=== PATIENT | female | born 1935 | race Caucasian/White ===

== ENCOUNTER 2017-12-31 13:25 | Inpatient (IN) | payer MEDICARE ==
[~2017-12-31] VITALS: Ht 165.1 cm; Wt 77.1 kg
[2017-12-31 13:35] VITALS: BP 120/57
[2017-12-31] MEDS ORDERED: Sodium Chloride 500ML 500 ML IV ONE (14:00)
[2017-12-31] MEDS ORDERED: Acetaminophen 500mg (ES) tab ORAL ONE (14:00)
[2017-12-31 14:49] LABS: BASOPHILS % (AUTO) 1.4 % (0.0-2.0); EOSINOPHILS % (AUTO) 3.4 % (0.0-3.0); HEMATOCRIT 35.9 % (37.0-47.0); HEMOGLOBIN 11.7 G/DL (12.0-16.0); LYMPHOCYTES % (AUTO) 26.2 % (20.0-45.0); MEAN CORPUSCULAR VOLUME 93 FL (80-99); MONOCYTES % (AUTO) 13.1 % (1.0-10.0); NEUTROPHILS % (AUTO) 55.9 % (45.0-75.0); PLATELET COUNT 252 K/UL (150-450); RED BLOOD COUNT 3.84 M/UL (4.20-5.40); RED CELL DISTRIBUTION WIDTH 11.4 % (11.6-14.8); WHITE BLOOD COUNT 6.1 K/UL (4.8-10.8)
--- NOTE | 2017-12-31 14:51 | Diagnostic Imaging Report ---
Indication: Chest pain Comparison: None A single view chest radiograph was obtained. Findings: No definite infiltrate or pulmonary vascular congestion identified. The heart is enlarged. The aorta is mildly enlarged consistent with atherosclerotic vascular disease. The bones are osteopenic. Impression: No acute disease
[2017-12-31] MEDS ORDERED: SINEMET 25-1001 EAC1 ORAL ×3 (14:58→20:05)
[2017-12-31] MEDS ORDERED: ACETAMINOPHEN325 M1 ORAL (14:58)
[2017-12-31] MEDS ORDERED: OMEPRAZOLE40 M1 ORAL (15:00)
[2017-12-31] MEDS ORDERED: CALCIUM CARBON500 M1 PO (15:00)
[2017-12-31] MEDS ORDERED: THERA-M1 EACH PO (15:00)
[2017-12-31] MEDS ORDERED: BENADRYL25 MG ORAL (15:00)
[2017-12-31 15:02] LABS: ANION GAP 5 mmol/L (5-15); BLOOD UREA NITROGEN 22 mg/dL (7-18); CARBON DIOXIDE 30 MMOL/L (21-32); CHLORIDE 106 MMOL/L (98-107); CREATININE 1.2 MG/DL (0.55-1.30); POTASSIUM 3.9 MMOL/L (3.5-5.1); SODIUM 141 MMOL/L (136-145)
--- NOTE | 2017-12-31 15:08 | Diagnostic Imaging Report ---
Indication: Headache Technique: Contiguous 5 mm thick transaxial imaging of the head obtained in a Siemens Sensation [address] scanner. Soft tissue and bone windows generated. Automatic Exposure Control was utilized. Total Dose length Product (DLP): 1679.[address] Dose Index Volume (CTDIvol): 70.38,12.12 mGy Comparison: none Findings: There is moderate prominence of the ventricles, basal cisterns, and cerebral sulci consistent with atrophy. Moderate, nonspecific, white matter hypoattenuation is noted throughout the brain consistent with chronic small vessel disease. There is no midline shift, edema, acute hemorrhage, mass effect, or abnormal extra-axial fluid collections. Bones and extra osseous soft tissues are unremarkable. Impression: No acute intracranial bleed, mass effect or edema. Moderate atrophy of the brain. Evidence of chronic small vessel disease involving white matter tracts. The CT scanner at [facility] is accredited by the [employer] and the scans are performed using dose optimization techniques as appropriate to a performed exam including Automatic Exposure control.
--- NOTE | 2017-12-31 15:13 | Diagnostic Imaging Report ---
Indication: Neck pain. Technique: Continuous helical imaging of the cervical spine was obtained transaxially from the skull base to the upper thoracic spine. 2-D coronal and sagittal reformatted images were obtained. Automatic Exposure Control was utilized. Total Dose length Product (DLP): 1679.[address] Dose Index Volume (CTDIvol): 70.38,12.12 mGy Comparison: None Findings: No acute fracture is identified. There is a moderate degenerative disease characterized by narrowing of intervertebral discs, extensive osteophyte formation and uncovertebral spur formation at multiple levels. There is a reversal of cervical lordosis with a kyphotic appearing cervical spine. Multilevel anterolistheses also present for example at C3-4 and C4-5. For further evaluation of the spondylosis recommend MRI. The bones are osteopenic. 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 No definite evidence of acute injury The CT scanner at [facility] is accredited by the [employer] and the scans are performed using dose optimization techniques as appropriate to a performed exam including Automatic Exposure control.
[2017-12-31 15:23] LABS: ALANINE AMINOTRANSFERASE 11 U/L (12-78); ALBUMIN 3.4 G/DL (3.4-5.0); ALBUMIN/GLOBULIN RATIO 0.9 (1.0-2.7); ALKALINE PHOSPHATASE 85 U/L (46-116); ASPARTATE AMINO TRANSFERASE 8 U/L (15-37); BILIRUBIN,TOTAL 0.7 MG/DL (0.2-1.0); CKMB 1.8 NG/ML (0.0-3.6); CREATINE KINASE 135 U/L (26-308)
--- NOTE | 2017-12-31 16:14 | Emergency Room Report ---
History of Present Illness General Chief Complaint: Multiple Trauma/Fall Source: Patient, Medical Record, EMS Present Illness HPI 82-year-old female presents ED for evaluation. Patient complaining of head pain and neck pain status post fall 2 days ago at assisted. States it was a mechanical fall. Denies LOC. Complaining of pain to the back of her head and neck. Pain is throbbing, 5 out of 10, nonradiating. Denies chest pain or shortness of breath. Denies nausea or vomiting. Denies any blurry vision. Patient states that she has been falling a lot recently. No other aggravating or relieving factors. Denies any other associated symptoms Allergies: Coded Allergies: AMOXICILLIN (Verified Allergy, Unknown, 12/31/17) Patient History Past Medical History: none Past Surgical History: none Pertinent Family History: none Social History: Denies: smoking, alcohol use, drug use Now: No Immunizations: UTD Reviewed Nursing Documentation: PMH: Agreed; PSxH: Agreed Nursing Documentation-PMH Past Medical History: No History, Except For Review of Systems All Other Systems: negative except mentioned in HPI Physical Exam Vital Signs Date Time Temp Pulse Resp B/P (MAP) Pulse Ox O2 Delivery O2 Flow Rate FiO2 12/31/17 13:25 97.8 71 18 122/71 95 Room Air 97.9 Sp02 EP Interpretation: reviewed, normal General Appearance: no apparent distress, alert, GCS 15, non-toxic Head: normocephalic, other - TTP to posterior scalp Eyes: bilateral eye normal inspection, bilateral eye PERRL ENT: hearing grossly normal, normal pharynx, no angioedema, normal voice Neck: full range of motion, supple/symm/no masses, tender lateral, tender midline Respiratory: chest non-tender, lungs clear, normal breath sounds, speaking full sentences Cardiovascular #1: regular rate, rhythm, no edema Cardiovascular #2: 2+ carotid (R), 2+ carotid (L), 2+ radial (R), 2+ radial (L) , 2+ dorsalis pedis (R), 2+ dorsalis pedis (L) Gastrointestinal: normal bowel sounds, non tender, soft, non-distended, no guarding, no rebound Rectal: deferred Genitourinary: normal inspection, no CVA tenderness Musculoskeletal: back normal, gait/station normal, normal range of motion, non- tender Neurologic: alert, oriented x3, responsive, motor strength/tone normal, sensory intact, speech normal Psychiatric: judgement/insight normal, memory normal, mood/affect normal, no suicidal/homicidal ideation Reflexes: 3+ bicep (R), 3+ bicep (L), 3+ tricep (R), 3+ tricep (L), 3+ knee (R) , 3+ knee (L) Skin: normal color, no rash, warm/dry, well hydrated Lymphatic: no adenopathy Medical Decision Making Diagnostic Impression: Primary Impression: Head injury Qualified Codes: S09.90XA - Unspecified injury of head, initial encounter Additional Impression: Frequent falls ER Course Hospital Course 82-year-old female presents ED status post fall with head and neck pain Differential diagnoses include: AL/unstable angina, arrythmia, dehydration, CVA/ TIA Clinical course Patient placed on stretcher. 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 After initial history and physical I ordered labs, EKG, chest x-ray, IVFs, CT Brain, CT Cspine labs reviewed- no leukocytosis, hemoglobin/hematocrit ok, electrolytes okay, troponins negative EKG- NSR, no acute ischemic changes interpreted by me Chest x-ray- no acute process CT brain-unremarkable, atrophy, chronic disease CT Cspine - moderate DJD Because of history of frequent falls there is concern of safety for the patient. Believe patient should be admitted for further evaluation Case discussed with Dr. Ocasio and he agreed to accept the patient to his service for further care and support I. I feel this is a highly complex case requiring extensive working including EKG/Rhythm strip, Xray/CT/US, Blood/urine lab work, repeat exams while in ED, and administration of strong opiates/narcotics for pain control, admission to hospital or close patient follow up. Diagnosis - head injury, frequent falls admitted to floor in serious condition Labs Test 12/31/17 14:15 White Blood Count 6.1 K/UL (4.8-10.8) Red Blood Count 3.84 M/UL (4.20-5.40) Hemoglobin 11.7 G/DL (12.0-16.0) Hematocrit 35.9 % (37.0-47.0) Mean Corpuscular Volume 93 FL (80-99) Mean Corpuscular Hemoglobin 30.4 PG (27.0-31.0) Mean Corpuscular Hemoglobin Concent 32.6 G/DL (32.0-36.0) Red Cell Distribution Width 11.4 % (11.6-14.8) Platelet Count 252 K/UL (150-450) Mean Platelet Volume 6.0 FL (6.5-10.1) Neutrophils (%) (Auto) 55.9 % (45.0-75.0) Lymphocytes (%) (Auto) 26.2 % (20.0-45.0) Monocytes (%) (Auto) 13.1 % (1.0-10.0) Eosinophils (%) (Auto) 3.4 % (0.0-3.0) Basophils (%) (Auto) 1.4 % (0.0-2.0) Sodium Level 141 MMOL/L (136-145) Potassium Level 3.9 MMOL/L (3.5-5.1) Chloride Level 106 MMOL/L (98-107) Carbon Dioxide Level 30 MMOL/L (21-32) Anion Gap 5 mmol/L (5-15) Blood Urea Nitrogen 22 mg/dL (7-18) Creatinine 1.2 MG/DL (0.55-1.30) Estimat Glomerular Filtration Rate mL/min (>60) Glucose Level 96 MG/DL (74-106) Calcium Level 9.0 MG/DL (8.5-10.1) Total Bilirubin 0.7 MG/DL (0.2-1.0) Aspartate Amino Transf (AST/SGOT) 8 U/L (15-37) Alanine Aminotransferase (ALT/SGPT) 11 U/L (12-78) Alkaline Phosphatase 85 U/L (46-116) Total Creatine Kinase 135 U/L (26-308) Creatine Kinase MB 1.8 NG/ML (0.0-3.6) Creatine Kinase MB Relative Index 1.3 Troponin I 0.000 ng/mL (0.000-0.056) Pro-B-Type Natriuretic Peptide 128 pg/mL (0-125) Total Protein 7.1 G/DL (6.4-8.2) Albumin 3.4 G/DL (3.4-5.0) Globulin 3.7 g/dL Albumin/Globulin Ratio 0.9 (1.0-2.7) EKG Diagnostic Results Rate: normal Rhythm: NSR ST Segments: no acute changes ASA given to the pt in ED: No Rhythm Strip Diag. Results EP Interpretation: yes Rhythm: NSR, no PVC's, no ectopy Chest X-Ray Diagnostic Results Chest X-Ray Diagnostic Results : Chest X-Ray Ordered: Yes # of Views/Limited/Complete: 1 View Indication: Other - dizziness EP Interpretation: Yes Interpretation: no consolidation, no effusion, no pneumothorax, no acute cardiopulmonary disease Impression: No acute disease CT/MRI/US Diagnostic Results CT/MRI/US Diagnostic Results #1: Imaging Test Ordered: CT Head Impression no acute process. atrophy. chronic small vessel disease CT/MRI/US Diagnostic Results #2: Imaging Test Ordered: CT C spine Impression degenerative disease of cspine. no acute injury Last Vital Signs Date Time Temp Pulse Resp B/P (MAP) Pulse Ox O2 Delivery O2 Flow Rate FiO2 12/31/17 14:22 97.5 12/31/17 13:35 73 17 120/57 99 Room Air Status: improved Disposition: ADMITTED INPATIENT Condition: Serious Referrals: Regino Marion MD (PCP) Caio Clark MD December 31, 2017 16:14
[2017-12-31 16:19] VITALS: BP 154/73
[2017-12-31 20:00] VITALS: BP 139/74
[2017-12-31] MEDS ORDERED: ATIVAN0.5 MG ORAL (20:05)
[2017-12-31] MEDS ORDERED: COLACE100 MG ORAL (20:05)
[2017-12-31] MEDS ORDERED: SINEMET CR 50-1 EACH ORAL (20:05)
[2017-12-31] MEDS ORDERED: PROBIOTIC1 EAC5 PO (20:05)
[2017-12-31] MEDS ORDERED: BISACODYL5 MG ORAL (20:05)
[2017-12-31] MEDS ORDERED: AMANTADINE100 M2 ORAL (20:05)
[2017-12-31] MEDS ORDERED: QUETIAPINE FUM100 MG ORAL (20:05)
[2017-12-31] MEDS ORDERED: DULCOLAX5 MG PO (20:05)
[2017-12-31] MEDS ORDERED: VITAMIN C500 M1 ORAL (20:05)
[2017-12-31] MEDS ORDERED: Bisacodyl EC 5mg tab ORAL PRN (20:30)
[2017-12-31] MEDS ORDERED: HYDROcodone/Acetamin 10/325 tab ORAL PRN (20:30)
[2017-12-31] MEDS ORDERED: Docusate 100mg cap ORAL PRN (20:30)
[2017-12-31] MEDS ORDERED: Levodopa/Carbidopa 25/100 tab ORAL SCH (21:00)
[2017-12-31] MEDS: Heparin 5000 units/ml inj SUBQ SCH (21:39)
[2018-01-01] VITALS: BP 103/49
[2018-01-01 01:01] LABS: APPEARANCE,URINE CLOUDY; BILIRUBIN, URINE NEGATIVE (NEGATIVE); COLOR,URINE PALE YELLOW; GLUCOSE, URINE (UA) NEGATIVE (NEGATIVE); KETONES,URINE 1+ (NEGATIVE); LEUKOCYTE ESTERASE ,URINE 3+ (NEGATIVE); NITRITE,URINE NEGATIVE (NEGATIVE); PH,URINE 5 (4.5-8.0); PROTEIN,URINE 1+ (NEGATIVE); UROBILINOGEN,URINE 4 MG/DL (0.0-1.0)
[2018-01-01] MEDS: Levodopa/Carbidopa 25/100 tab ORAL SCH ×5 (04:03→18:01)
[2018-01-01 08:00] VITALS: BP 144/80
[2018-01-01] MEDS: Amantadine 100mg cap ORAL SCH (08:59)
[2018-01-01] MEDS: Ascorbic Acid 500mg tab ORAL SCH (08:59)
[2018-01-01] MEDS: Multivitamin w/Minerals tab ORAL SCH (08:59)
[2018-01-01] MEDS: Lactobacillus-GG tablet ORAL SCH (08:59)
[2018-01-01] MEDS ORDERED: Levodopa/Carbidopa CR 50/200 tab ORAL SCH (09:00)
[2018-01-01 09:01] LABS: BASOPHILS % (AUTO) 1.4 % (0.0-2.0); HEMATOCRIT 35.4 % (37.0-47.0); HEMOGLOBIN 11.5 G/DL (12.0-16.0); LYMPHOCYTES % (AUTO) 27.8 % (20.0-45.0); MEAN CORPUSCULAR VOLUME 93 FL (80-99); MONOCYTES % (AUTO) 12.8 % (1.0-10.0); NEUTROPHILS % (AUTO) 51.9 % (45.0-75.0); PLATELET COUNT 260 K/UL (150-450); RED BLOOD COUNT 3.81 M/UL (4.20-5.40); RED CELL DISTRIBUTION WIDTH 11.2 % (11.6-14.8)
[2018-01-01] MEDS: Heparin 5000 units/ml inj SUBQ SCH ×2 (09:01→21:15)
[2018-01-01 09:32] LABS: ALANINE AMINOTRANSFERASE 8 U/L (12-78); ALBUMIN/GLOBULIN RATIO 0.9 (1.0-2.7); ALKALINE PHOSPHATASE 76 U/L (46-116); ANION GAP 6 mmol/L (5-15); ASPARTATE AMINO TRANSFERASE 11 U/L (15-37); BILIRUBIN,TOTAL 0.9 MG/DL (0.2-1.0); BLOOD UREA NITROGEN 16 mg/dL (7-18); CALCIUM 8.7 MG/DL (8.5-10.1); CARBON DIOXIDE 27 MMOL/L (21-32); CHLORIDE 109 MMOL/L (98-107); CHOLESTEROL 154 MG/DL (< 200); CREATININE 0.9 MG/DL (0.55-1.30); HDL CHOLESTEROL 60 MG/DL (40-60); POTASSIUM 3.8 MMOL/L (3.5-5.1); SODIUM 142 MMOL/L (136-145); TRIGLYCERIDES 68 MG/DL (30-150)
[2018-01-01 09:36] LABS: AMMONIA 25 umol/L (11-32)
[2018-01-01 12:00] VITALS: BP 140/79
--- NOTE | 2018-01-01 15:08 | History and Physical ---
History of Present Illness General Date patient seen: January 01, 2018 Time patient seen: 11:23 Reason for Hospitalization: Multiple Trauma/Fall Present Illness HPI 82 y/o female with a PMH of Parkinson's Disease and GERD presented for recurrent falls from [facility], [facility]. Patient states that for the last several months, she has been having recurrent falls, usually upon transferring from the wheelchair. Patient states that she has had a long history of balance issues since she was diagnosed with PD and is currently wheelchair bound. Patient states that she was being transferred from the bathroom to the wheelchair where she slipped and fell. She does not remember if she lost consciousness of not. Does report head trauma. CT head in the ED was negative. CT cervical spine showed degenerative spine changes. Patient was further admitted for recurrent falls. Currently denies chest pain, sob, n/v, abdominal pain. Allergies: Coded Allergies: AMOXICILLIN (Verified Allergy, Unknown, 12/31/17) Medication History Scheduled Amantadine Hcl* (Amantadine*), 100 MG ORAL DAILY, (Reported) Ascorbic Acid* (Vitamin C*), 1,000 MG ORAL DAILY, (Reported) Bisacodyl* (Dulcolax*), 5 MG ORAL DAILY, (Reported) Calcium Carbonate (Calcium Carbonate), 500 MG PO BID, (Reported) Carbidopa/Levodopa 25-100 Mg* (Sinemet 25-100 Mg Tablet*), 2 TAB ORAL QID, ( Reported) Carbidopa/Levodopa 25-100 Mg* (Sinemet 25-100 Mg Tablet*), 1 TAB ORAL daily at 1200, (Reported) Carbidopa/Levodopa Cr 50-200* (Sinemet Cr 50-200 Tablet*), 1 TAB ORAL DAILY, ( Reported) Lactobacillus Combo No.11 (Probiotic), 1 EACH PO DAILY, (Reported) Multivits, W-,Other Min (Thera-M), 1 EACH PO DAILY, (Reported) Omeprazole (Omeprazole), 40 MG ORAL DAILY, (Reported) Quetiapine Fumarate* (Seroquel*), 50 MG ORAL BEDTIME, (Reported) Scheduled PRN Acetaminophen* (Acetaminophen 325MG Tablet*), 650 MG ORAL Q4H PRN for Mild Pain/ Temp > 100.5, (Reported) Bisacodyl (Dulcolax), 10 MG PO BID PRN for Constipation, (Reported) Diphenhydramine Hcl* (Benadryl*), 50 MG ORAL Q4HR PRN for Itching, (Reported) Docusate Sodium* (Colace*), 100 MG ORAL TWICE A DAY PRN for Constipation, ( Reported) Lorazepam* (Ativan*), 0.5 MG ORAL Q6HR PRN for For Anxiety, (Reported) Patient History History Provided By: Patient, Medical Record Healthcare decision maker Zachariah Malloy Resuscitation status Full Code Advanced Directive on File No Review of Systems All Other Systems: negative except mentioned in HPI Physical Exam General Appearance: no apparent distress, alert HEENT: normocephalic, atraumatic, PERRL Neck: non-tender, normal alignment, supple Respiratory/Chest: chest wall non-tender, lungs clear, normal breath sounds Cardiovascular/Chest: normal peripheral pulses, normal rate, regular rhythm Abdomen: normal bowel sounds, non tender, soft Extremities: normal range of motion, non-tender Skin Exam: normal pigmentation, warm/dry 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 grossly normal, no motor/sensory deficits, alert, oriented x 3 Last 24 Hour Vital Signs Date Time Temp Pulse Resp B/P (MAP) Pulse Ox O2 Delivery O2 Flow Rate FiO2 01/01/18 08:00 97.2 72 12 144/80 98 Room Air 97.2 01/01/18 04:00 66 71 01/01/18 00:00 98.4 71 18 103/49 94 Room Air 98.4 12/31/17 20:00 98.3 77 19 139/74 95 Room Air 98.3 12/31/17 18:42 98.7 76 17 154/73 95 Room Air 98.7 12/31/17 16:19 98.7 76 17 154/73 95 Room Air 98.7 Intake and Output 12/31/17 01/01/18 19:00 07:00 Intake Total 500 ml 735 ml Balance 500 ml 735 ml Intake Oral 60 ml IV Total 500 ml 675 ml # Voids 2 Laboratory Tests Test 12/31/17 23:45 01/01/18 05:40 Urine Color Pale yellow Urine Appearance Cloudy Urine pH 5 (4.5-8.0) Urine Specific Dustin 1.015 (1.005-1.035) Urine Protein 1+ (NEGATIVE) H Urine Glucose (UA) Negative (NEGATIVE) Urine Ketones 1+ (NEGATIVE) H Urine Occult Blood 3+ (NEGATIVE) H Urine Nitrite Negative (NEGATIVE) Urine Bilirubin Negative (NEGATIVE) Urine Urobilinogen 4 MG/DL (0.0-1.0) H Urine Leukocyte Esterase 3+ (NEGATIVE) H Urine RBC 15-20 /HPF (0 - 2) H Urine WBC Tntc /HPF (0 - 2) H Urine Squamous Epithelial Cells Moderate /LPF (NONE/OCC) H Urine Bacteria Many /HPF (NONE) H White Blood Count 5.0 K/UL (4.8-10.8) Red Blood Count 3.81 M/UL (4.20-5.40) L Hemoglobin 11.5 G/DL (12.0-16.0) L Hematocrit 35.4 % (37.0-47.0) L Mean Corpuscular Volume 93 FL (80-99) Mean Corpuscular Hemoglobin 30.2 PG (27.0-31.0) Mean Corpuscular Hemoglobin Concent 32.4 G/DL (32.0-36.0) Red Cell Distribution Width 11.2 % (11.6-14.8) L Platelet Count 260 K/UL (150-450) Mean Platelet Volume 5.8 FL (6.5-10.1) L Neutrophils (%) (Auto) 51.9 % (45.0-75.0) Lymphocytes (%) (Auto) 27.8 % (20.0-45.0) Monocytes (%) (Auto) 12.8 % (1.0-10.0) H Eosinophils (%) (Auto) 6.0 % (0.0-3.0) H Basophils (%) (Auto) 1.4 % (0.0-2.0) Sodium Level 142 MMOL/L (136-145) Potassium Level 3.8 MMOL/L (3.5-5.1) Chloride Level 109 MMOL/L (98-107) H Carbon Dioxide Level 27 MMOL/L (21-32) Anion Gap 6 mmol/L (5-15) Blood Urea Nitrogen 16 mg/dL (7-18) Creatinine 0.9 MG/DL (0.55-1.30) Estimat Glomerular Filtration Rate mL/min (>60) Glucose Level 84 MG/DL (74-106) Hemoglobin A1c 5.7 % (4.3-6.0) Calcium Level 8.7 MG/DL (8.5-10.1) Total Bilirubin 0.9 MG/DL (0.2-1.0) Aspartate Amino Transf (AST/SGOT) 11 U/L (15-37) L Alanine Aminotransferase (ALT/SGPT) 8 U/L (12-78) L Alkaline Phosphatase 76 U/L (46-116) Ammonia 25 umol/L (11-32) Total Protein 6.4 G/DL (6.4-8.2) Albumin 3.0 G/DL (3.4-5.0) L Globulin 3.4 g/dL Albumin/Globulin Ratio 0.9 (1.0-2.7) L Triglycerides Level 68 MG/DL (30-150) Cholesterol Level 154 MG/DL (< 200) LDL Cholesterol 92 mg/dL (<100) HDL Cholesterol 60 MG/DL (40-60) Cholesterol/HDL Ratio 2.6 (3.3-4.4) L Vitamin B12 Level 461 PG/ML (193-986) Vitamin D 25-Hydroxy Pending 25-Hydroxy Vitamin D2 Pending 25-Hydroxy Vitamin D3 Pending Folate 19.4 NG/ML (8.6-58.9) Thyroid Stimulating Hormone (TSH) 3.273 uiU/mL (0.358-3.740) Height (Feet): 5 Height (Inches): 5.00 Weight (Pounds): 170 Medications Current Medications Medications (Trade) Dose Ordered Sig/Pablito Route PRN Reason Start Time Stop Time Status Last Admin Dose Admin Acetaminophen (Tylenol) 650 mg Q4H PRN ORAL Mild Pain/Temp > 100.5 12/31/17 20:30 01/30/18 20:29 Acetaminophen/ Hydrocodone Bitart ([place] 10/325) 1 tab Q4H PRN ORAL severe pain 12/31/17 20:30 01/07/18 20:29 Acetaminophen/ Hydrocodone Bitart ([place] 5/325) 1 tab Q4H PRN ORAL Moderate Pain (Pain Scale 4-6) 12/31/17 20:30 01/07/18 20:29 Amantadine HCl (Symmetrel) 100 mg DAILY ORAL 01/01/18 09:00 01/31/18 08:59 01/01/18 08:59 Ascorbic Acid (Vitamin C) 1,000 mg DAILY ORAL 01/01/18 09:00 01/31/18 08:59 01/01/18 08:59 Bisacodyl (Dulcolax) 10 mg Q12H PRN ORAL Constipation 12/31/17 20:30 01/30/18 20:29 Calcium Carbonate ([place]) 1,250 mg BID ORAL 01/01/18 09:00 01/31/18 08:59 01/01/18 08:59 Carbidopa/Levodopa (Sinemet 25/100) 1 tab DAILY@1200 ORAL 01/01/18 12:00 01/31/18 11:59 01/01/18 13:10 Carbidopa/Levodopa (Sinemet 25/100) 2 tab DAILY@1800 ORAL 01/01/18 18:00 01/31/18 17:59 Carbidopa/Levodopa (Sinemet 25/100) 2 tab TID@0500,0900,1500 ORAL 01/01/18 05:00 01/31/18 04:59 01/01/18 14:55 Carbidopa/Levodopa (Sinemet CR 50/ 200) 1 tab DAILY@2200 ORAL 01/01/18 22:00 01/31/18 21:59 Diphenhydramine HCl (Benadryl) 50 mg Q4H PRN ORAL Itching 12/31/17 20:30 01/30/18 20:29 Docusate Sodium (Colace) 100 mg Q12H PRN ORAL Constipation 12/31/17 20:30 01/30/18 20:29 Heparin Sodium (Porcine) (Heparin 5000 units/ml) 5,000 units EVERY 12 HOURS SUBQ 12/31/17 21:00 01/30/18 20:59 01/01/18 09:01 Lactobacillus Acidophilus (Culturelle) 1 tab DAILY ORAL 01/01/18 09:00 01/31/18 08:59 01/01/18 08:59 Levofloxacin 150 ml @ 100 mls/hr Q48H IVPB 01/01/18 15:00 01/08/18 14:59 Multivitamins Therapeutic (Therapeutic Multivitamin) 1 ea DAILY ORAL 01/01/18 09:00 01/31/18 08:59 01/01/18 08:59 Pantoprazole (Protonix) 40 mg DAILY ORAL 01/01/18 09:00 01/31/18 08:59 01/01/18 08:58 Quetiapine Fumarate (SEROquel) 50 mg BEDTIME ORAL 12/31/17 21:00 01/30/18 20:59 12/31/17 21:33 Sodium Chloride 1,000 ml @ 75 mls/hr [id number] IV 12/31/17 20:30 01/30/18 20:29 01/01/18 10:35 Assessment/Plan Problem List: (1) Parkinsons disease ICD Codes: G20 - Parkinson's disease SNOMED: 79659257 (2) UTI (urinary tract infection) ICD Codes: N39.0 - Urinary tract infection, site not specified SNOMED: 48544744 (3) GERD (gastroesophageal reflux disease) ICD Codes: K21.9 - Gastro-esophageal reflux disease without esophagitis SNOMED: 252958196 (4) Frequent falls ICD Codes: R29.6 - Repeated falls SNOMED: 357816527 (5) Head injury ICD Codes: S09.90XA - Unspecified injury of head, initial encounter SNOMED: 75347394 Qualifiers: Qualified Codes: S09.90XA - Unspecified injury of head, initial encounter Status: stable, progressing Assessment/Plan - Admit to inpatient - IV levaquin for UTI - f/u urine cx - PT eval for recurrent falls - CT head negative. CT cervical spine showing degenerative disease but no acute fx - fall precautions - pain control and supportive care Fall may likely be 2/2 patient's PD diagnosis and/or UTI. DC PLANNING THIS WEEKEND. DVT Prophylaxis: SCD, HSQ Code Status: Full Hospital Classification Declaration: Based on this initial evaluation, and depending on the patient's clinical course, I anticipate that this patient will require hospitalization for 1-2 days for UTI and head trauma and close respiratory/hemodynamic monitoring. Disposition: Once the patient is stable to leave the hospital, I anticipate the patient will likely be discharged to the following environment: [facility], [facility] I spent [] minutes on this patient's case, and [] minutes were dedicated to counseling and/or care coordination. Discussed with patient/family, nursing staff, SW/CM, [] regarding clinical status, treatment course, and disposition planning. Time of note may not reflect time of encounter. Duyen March NP January 01, 2018 15:08
[2018-01-01 16:00] VITALS: BP 139/79
[2018-01-01 19:58] VITALS: BP 143/84
[2018-01-01] MEDS: Levodopa/Carbidopa CR 50/200 tab ORAL SCH (21:13)
[2018-01-01] MEDS: Norco 5mg/325mg tab ORAL PRN (21:16)
--- NOTE | 2018-01-01 22:30 | Consultation ---
DATE OF CONSULTATION: 12/31/2017 CONSULTING PHYSICIAN: Jass Olivares M.D. HISTORY OF PRESENT ILLNESS: The patient is an 82-year-old female with a history of multiple medical problems, who is being admitted to the hospital after the patient has fall and head injury. The patient has history of frequent falls. The patient also has history of dementia, anxiety disorder. The patient is currently on Seroquel as well as Ativan. ER doctor called me and the patient was seen yesterday in the ER. PAST PSYCHIATRIC HISTORY: She has a history of psychotic disorder, has been prescribed Seroquel. The patient was agitated in the ER. She was given Ativan. PAST MEDICAL HISTORY: Significant for dementia and anxiety. The patient was confused during the evaluation, also was unable to provide any history. She was not able to tell me her name nor the situation the patient is in. PAST PSYCHIATRIC HISTORY: She has a history of psychotic disorder. The patient has a history of dementia, head injury, and frequent falls. PAST MEDICAL HISTORY: As above. ALLERGIES: Amoxicillin. SUBSTANCE ABUSE HISTORY: No history of illicit drug use or alcohol. MENTAL STATUS EXAMINATION: The patient was alert and oriented times self. Unable to answer the question. Mood is neutral to anxious. Affect is flat. Thought process is disorganized. Thought content, positive for suicidal or homicidal ideation. Insight and judgment non-existent. ASSESSMENT: AXIS I Encephalopathy, cognitive impairment. AXIS II Deferred. AXIS III As above. AXIS IV Low. AXIS V Global assessment of functioning is 20. PLAN: 1. The patient will be continued on Seroquel, however, we will change the Seroquel from to p.r.n. 2. We will continue to follow and readjust the medications. Jass Olivares M.D. DR: TAZ JOB#: [id number] CC:
--- NOTE | 2018-01-01 22:35 | Cardiology Report ---
APPROVED REPORT EKG Measurement Heart [id number] OR [id number] [id number] Normal sinus rhythm Incomplete right bundle branch block Septal infarct, age undetermined Abnormal ECG
[2018-01-02] VITALS: BP 133/72
--- NOTE | 2018-01-02 00:30 | Progress Note ---
DATE: 01/01/2018 SUBJECTIVE: The patient is calm, still confused. No behavioral issues at this time, however, still has waxing and waning consciousness, did not answer any questions per the nurse. was in the room. MENTAL STATUS EXAMINATION: The patient is alert, confused. Mood is neutral to anxious. Affect is constricted. Congruent with mood. Thought process is concrete. Thought content, no suicidal or homicidal ideations. ASSESSMENT: AXIS I: Encephalopathy, delirium. AXIS II: Deferred. PLAN: We will start the patient on Seroquel p.r.n. Jass Olivares M.D. DR: Paola JOB#: [id number] CC:
[2018-01-02 03:55] VITALS: BP 128/75
[2018-01-02] MEDS: Levodopa/Carbidopa 25/100 tab ORAL SCH ×5 (05:05→18:02)
[2018-01-02] MEDS: Norco 5mg/325mg tab ORAL PRN ×3 (06:00→21:27)
[2018-01-02 08:00] VITALS: BP 134/71
[2018-01-02 08:04] LABS: BASOPHILS % (AUTO) 1.8 % (0.0-2.0); EOSINOPHILS % (AUTO) 6.4 % (0.0-3.0); HEMATOCRIT 39.8 % (37.0-47.0); HEMOGLOBIN 12.9 G/DL (12.0-16.0); LYMPHOCYTES % (AUTO) 25.8 % (20.0-45.0); MEAN CORPUSCULAR VOLUME 93 FL (80-99); MONOCYTES % (AUTO) 11.2 % (1.0-10.0); NEUTROPHILS % (AUTO) 54.9 % (45.0-75.0); PLATELET COUNT 236 K/UL (150-450); RED BLOOD COUNT 4.29 M/UL (4.20-5.40); RED CELL DISTRIBUTION WIDTH 11.5 % (11.6-14.8)
[2018-01-02] MEDS: Lactobacillus-GG tablet ORAL SCH (08:11)
[2018-01-02] MEDS: Amantadine 100mg cap ORAL SCH (08:11)
[2018-01-02] MEDS: Ascorbic Acid 500mg tab ORAL SCH (08:11)
[2018-01-02] MEDS: Multivitamin w/Minerals tab ORAL SCH (08:11)
[2018-01-02] MEDS: Heparin 5000 units/ml inj SUBQ SCH ×2 (08:14→21:23)
[2018-01-02 08:32] LABS: ALANINE AMINOTRANSFERASE 7 U/L (12-78); ALBUMIN/GLOBULIN RATIO 0.8 (1.0-2.7); ALKALINE PHOSPHATASE 85 U/L (46-116); ANION GAP 9 mmol/L (5-15); ASPARTATE AMINO TRANSFERASE 15 U/L (15-37); BILIRUBIN,TOTAL 0.9 MG/DL (0.2-1.0); BLOOD UREA NITROGEN 14 mg/dL (7-18); CALCIUM 9.1 MG/DL (8.5-10.1); CARBON DIOXIDE 26 MMOL/L (21-32); CHLORIDE 107 MMOL/L (98-107); CREATININE 0.9 MG/DL (0.55-1.30); POTASSIUM 3.9 MMOL/L (3.5-5.1); SODIUM 141 MMOL/L (136-145)
[2018-01-02 12:00] VITALS: BP 146/69
--- NOTE | 2018-01-02 14:14 | Internal Med Progress Note ---
Subjective Physician Name DeannaMarkie Attending Physician Regino Marion MD Current Medications Medications (Trade) Dose Ordered Sig/Pablito Route PRN Reason Start Time Stop Time Status Last Admin Dose Admin Acetaminophen (Tylenol) 650 mg Q4H PRN ORAL Mild Pain/Temp > 100.5 12/31/17 20:30 01/30/18 20:29 Acetaminophen/ Hydrocodone Bitart ([place] 10/325) 1 tab Q4H PRN ORAL severe pain 12/31/17 20:30 01/07/18 20:29 Acetaminophen/ Hydrocodone Bitart ([place] 5/325) 1 tab Q4H PRN ORAL Moderate Pain (Pain Scale 4-6) 12/31/17 20:30 01/07/18 20:29 01/02/18 06:00 Amantadine HCl (Symmetrel) 100 mg DAILY ORAL 01/01/18 09:00 01/31/18 08:59 01/02/18 08:11 Ascorbic Acid (Vitamin C) 1,000 mg DAILY ORAL 01/01/18 09:00 01/31/18 08:59 01/02/18 08:11 Bisacodyl (Dulcolax) 10 mg Q12H PRN ORAL Constipation 12/31/17 20:30 01/30/18 20:29 Calcium Carbonate (Os-Gus) 1,250 mg BID ORAL 01/01/18 09:00 01/31/18 08:59 01/02/18 08:11 Carbidopa/Levodopa (Sinemet 25/100) 1 tab DAILY@1200 ORAL 01/01/18 12:00 01/31/18 11:59 01/02/18 12:21 Carbidopa/Levodopa (Sinemet 25/100) 2 tab DAILY@1800 ORAL 01/01/18 18:00 01/31/18 17:59 01/01/18 18:01 Carbidopa/Levodopa (Sinemet 25/100) 2 tab TID@0500,0900,1500 ORAL 01/01/18 05:00 01/31/18 04:59 01/02/18 08:12 Carbidopa/Levodopa (Sinemet CR 50/ 200) 1 tab DAILY@2200 ORAL 01/01/18 22:00 01/31/18 21:59 01/01/18 21:13 Diphenhydramine HCl (Benadryl) 50 mg Q4H PRN ORAL Itching 12/31/17 20:30 01/30/18 20:29 Docusate Sodium (Colace) 100 mg Q12H PRN ORAL Constipation 12/31/17 20:30 01/30/18 20:29 Heparin Sodium (Porcine) (Heparin 5000 units/ml) 5,000 units EVERY 12 HOURS SUBQ 12/31/17 21:00 01/30/18 20:59 01/02/18 08:14 Lactobacillus Acidophilus (Culturelle) 1 tab DAILY ORAL 01/01/18 09:00 01/31/18 08:59 01/02/18 08:11 Levofloxacin 100 ml @ 100 mls/hr Q24H IVPB 01/02/18 16:00 01/09/18 23:59 Multivitamins Therapeutic (Therapeutic Multivitamin) 1 ea DAILY ORAL 01/01/18 09:00 01/31/18 08:59 01/02/18 08:11 Pantoprazole (Protonix) 40 mg DAILY ORAL 01/01/18 09:00 01/31/18 08:59 01/02/18 08:11 Quetiapine Fumarate (SEROquel) 50 mg BEDTIME ORAL 12/31/17 21:00 01/30/18 20:59 01/01/18 21:13 Sodium Chloride 1,000 ml @ 75 mls/hr [id number] IV 12/31/17 20:30 01/30/18 20:29 01/01/18 23:00 Allergies: Coded Allergies: AMOXICILLIN (Verified Allergy, Unknown, 12/31/17) Objective Last Vital Signs Date Time Temp Pulse Resp B/P (MAP) Pulse Ox O2 Delivery O2 Flow Rate FiO2 01/02/18 12:00 97.8 63 18 146/69 95 Room Air 97.8 Laboratory Tests Test 01/02/18 06:20 White Blood Count 5.0 K/UL (4.8-10.8) Red Blood Count 4.29 M/UL (4.20-5.40) Hemoglobin 12.9 G/DL (12.0-16.0) Hematocrit 39.8 % (37.0-47.0) Mean Corpuscular Volume 93 FL (80-99) Mean Corpuscular Hemoglobin 30.0 PG (27.0-31.0) Mean Corpuscular Hemoglobin Concent 32.4 G/DL (32.0-36.0) Red Cell Distribution Width 11.5 % (11.6-14.8) L Platelet Count 236 K/UL (150-450) Mean Platelet Volume 5.2 FL (6.5-10.1) L Neutrophils (%) (Auto) 54.9 % (45.0-75.0) Lymphocytes (%) (Auto) 25.8 % (20.0-45.0) Monocytes (%) (Auto) 11.2 % (1.0-10.0) H Eosinophils (%) (Auto) 6.4 % (0.0-3.0) H Basophils (%) (Auto) 1.8 % (0.0-2.0) Sodium Level 141 MMOL/L (136-145) Potassium Level 3.9 MMOL/L (3.5-5.1) Chloride Level 107 MMOL/L (98-107) Carbon Dioxide Level 26 MMOL/L (21-32) Anion Gap 9 mmol/L (5-15) Blood Urea Nitrogen 14 mg/dL (7-18) Creatinine 0.9 MG/DL (0.55-1.30) Estimat Glomerular Filtration Rate mL/min (>60) Glucose Level 84 MG/DL (74-106) Calcium Level 9.1 MG/DL (8.5-10.1) Total Bilirubin 0.9 MG/DL (0.2-1.0) Aspartate Amino Transf (AST/SGOT) 15 U/L (15-37) Alanine Aminotransferase (ALT/SGPT) 7 U/L (12-78) L Alkaline Phosphatase 85 U/L (46-116) Total Protein 6.7 G/DL (6.4-8.2) Albumin 3.0 G/DL (3.4-5.0) L Globulin 3.7 g/dL Albumin/Globulin Ratio 0.8 (1.0-2.7) L Microbiology Date/Time Source Procedure Growth Status 12/31/17 17:00 Nasal Nares MRSA Culture - Final NO METHICILLIN RESISTANT STAPH AUREUS... Complete 12/31/17 23:45 Straight Cath Urine Culture - Final Mixed Gram Positive Organism Complete 12/31/17 17:00 Rectum VRE Culture - Final NO VANCOMYCIN RESISTANT ENTEROCOCCUS ... Complete Intake and Output 01/01/18 01/02/18 19:00 07:00 Intake Total 675 ml 870 ml Balance 675 ml 870 ml Intake Oral 600 ml 120 ml IV Total 75 ml 750 ml # Voids 5 4 # Bowel Movements 3 Assessment/Plan Assessment/Plan No acute events overnight HDS afeb Medication History Scheduled Amantadine Hcl* (Amantadine*), 100 MG ORAL DAILY, (Reported) Ascorbic Acid* (Vitamin C*), 1,000 MG ORAL DAILY, (Reported) Bisacodyl* (Dulcolax*), 5 MG ORAL DAILY, (Reported) Calcium Carbonate (Calcium Carbonate), 500 MG PO BID, (Reported) Carbidopa/Levodopa 25-100 Mg* (Sinemet 25-100 Mg Tablet*), 2 TAB ORAL QID, ( Reported) Carbidopa/Levodopa 25-100 Mg* (Sinemet 25-100 Mg Tablet*), 1 TAB ORAL daily at 1200, (Reported) Carbidopa/Levodopa Cr 50-200* (Sinemet Cr 50-200 Tablet*), 1 TAB ORAL DAILY, ( Reported) Lactobacillus Combo No.11 (Probiotic), 1 EACH PO DAILY, (Reported) Multivits,Th W-Fe,Other Min (Thera-M), 1 EACH PO DAILY, (Reported) Omeprazole (Omeprazole), 40 MG ORAL DAILY, (Reported) Quetiapine Fumarate* (Seroquel*), 50 MG ORAL BEDTIME, (Reported) Scheduled PRN Acetaminophen* (Acetaminophen 325MG Tablet*), 650 MG ORAL Q4H PRN for Mild Pain/ Temp > 100.5, (Reported) Bisacodyl (Dulcolax), 10 MG PO BID PRN for Constipation, (Reported) Diphenhydramine Hcl* (Benadryl*), 50 MG ORAL Q4HR PRN for Itching, (Reported) Docusate Sodium* (Colace*), 100 MG ORAL TWICE A DAY PRN for Constipation, ( Reported) Lorazepam* (Ativan*), 0.5 MG ORAL Q6HR PRN for For Anxiety, (Reported) Patient History History Provided By: Patient, Medical Record Healthcare decision maker Zachariah Malloy Resuscitation status Full Code Advanced Directive on File No ROS Review of Systems All Other Systems: negative except mentioned in HPI Physical Exam Physical Exam General Appearance: no apparent distress, alert HEENT: normocephalic, atraumatic, PERRL Neck: non-tender, normal alignment, supple Respiratory/Chest: chest wall non-tender, lungs clear, normal breath sounds Cardiovascular/Chest: normal peripheral pulses, normal rate, regular rhythm Abdomen: normal bowel sounds, non tender, soft Extremities: normal range of motion, non-tender Skin Exam: normal pigmentation, warm/dry 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 II-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 grossly normal, no motor/sensory deficits, alert, oriented x 3 Last 24 Hour Vital Signs Date Time Temp Pulse Resp B/P (MAP) Pulse Ox O2 Delivery O2 Flow Rate FiO2 01/01/18 08:00 97.2 72 12 144/80 98 Room Air 97.2 01/01/18 04:00 66 71 01/01/18 00:00 98.4 71 18 103/49 94 Room Air 98.4 12/31/17 20:00 98.3 77 19 139/74 95 Room Air 98.3 12/31/17 18:42 98.7 76 17 154/73 95 Room Air 98.7 12/31/17 16:19 98.7 76 17 154/73 95 Room Air 98.7 Intake and Output 12/31/17 01/01/18 19:00 07:00 Intake Total 500 ml 735 ml Balance 500 ml 735 ml Intake Oral 60 ml IV Total 500 ml 675 ml # Voids 2 Laboratory Tests Test 12/31/17 23:45 01/01/18 05:40 Urine Color Pale yellow Urine Appearance Cloudy Urine pH 5 (4.5-8.0) Urine Specific [place] 1.015 (1.005-1.035) Urine Protein 1+ (NEGATIVE) H Urine Glucose (UA) Negative (NEGATIVE) Urine Ketones 1+ (NEGATIVE) H Urine Occult Blood 3+ (NEGATIVE) H Urine Nitrite Negative (NEGATIVE) Urine Bilirubin Negative (NEGATIVE) Urine Urobilinogen 4 MG/DL (0.0-1.0) H Urine Leukocyte Esterase 3+ (NEGATIVE) H Urine RBC 15-20 /HPF (0 - 2) H Urine WBC Tntc /HPF (0 - 2) H Urine Squamous Epithelial Cells Moderate /LPF (NONE/OCC) H Urine Bacteria Many /HPF (NONE) H White Blood Count 5.0 K/UL (4.8-10.8) Red Blood Count 3.81 M/UL (4.20-5.40) L Hemoglobin 11.5 G/DL (12.0-16.0) L Hematocrit 35.4 % (37.0-47.0) L Mean Corpuscular Volume 93 FL (80-99) Mean Corpuscular Hemoglobin 30.2 PG (27.0-31.0) Mean Corpuscular Hemoglobin Concent 32.4 G/DL (32.0-36.0) Red Cell Distribution Width 11.2 % (11.6-14.8) L Platelet Count 260 K/UL (150-450) Mean Platelet Volume 5.8 FL (6.5-10.1) L Neutrophils (%) (Auto) 51.9 % (45.0-75.0) Lymphocytes (%) (Auto) 27.8 % (20.0-45.0) Monocytes (%) (Auto) 12.8 % (1.0-10.0) H Eosinophils (%) (Auto) 6.0 % (0.0-3.0) H Basophils (%) (Auto) 1.4 % (0.0-2.0) Sodium Level 142 MMOL/L (136-145) Potassium Level 3.8 MMOL/L (3.5-5.1) Chloride Level 109 MMOL/L (98-107) H Carbon Dioxide Level 27 MMOL/L (21-32) Anion Gap 6 mmol/L (5-15) Blood Urea Nitrogen 16 mg/dL (7-18) Creatinine 0.9 MG/DL (0.55-1.30) Estimat Glomerular Filtration Rate mL/min (>60) Glucose Level 84 MG/DL (74-106) Hemoglobin A1c 5.7 % (4.3-6.0) Calcium Level 8.7 MG/DL (8.5-10.1) Total Bilirubin 0.9 MG/DL (0.2-1.0) Aspartate Amino Transf (AST/SGOT) 11 U/L (15-37) L Alanine Aminotransferase (ALT/SGPT) 8 U/L (12-78) L Alkaline Phosphatase 76 U/L (46-116) Ammonia 25 umol/L (11-32) Total Protein 6.4 G/DL (6.4-8.2) Albumin 3.0 G/DL (3.4-5.0) L Globulin 3.4 g/dL Albumin/Globulin Ratio 0.9 (1.0-2.7) L Triglycerides Level 68 MG/DL (30-150) Cholesterol Level 154 MG/DL (< 200) LDL Cholesterol 92 mg/dL (<100) HDL Cholesterol 60 MG/DL (40-60) Cholesterol/HDL Ratio 2.6 (3.3-4.4) L Vitamin B12 Level 461 PG/ML (193-986) Vitamin D 25-Hydroxy Pending 25-Hydroxy Vitamin D2 Pending 25-Hydroxy Vitamin D3 Pending Folate 19.4 NG/ML (8.6-58.9) Thyroid Stimulating Hormone (TSH) 3.273 uiU/mL (0.358-3.740) Height (Feet): 5 Height (Inches): 5.00 Weight (Pounds): 170 Medications Current Medications Medications (Trade) Dose Ordered Sig/[place] Route PRN Reason Start Time Stop Time Status Last Admin Dose Admin Acetaminophen (Tylenol) 650 mg Q4H PRN ORAL Mild Pain/Temp > 100.5 12/31/17 20:30 01/30/18 20:29 Acetaminophen/ Hydrocodone Bitart ([place] 10/325) 1 tab Q4H PRN ORAL severe pain 12/31/17 20:30 01/07/18 20:29 Acetaminophen/ Hydrocodone Bitart ([place] 5/325) 1 tab Q4H PRN ORAL Moderate Pain (Pain Scale 4-6) 12/31/17 20:30 01/07/18 20:29 Amantadine HCl (Symmetrel) 100 mg DAILY ORAL 01/01/18 09:00 01/31/18 08:59 01/01/18 08:59 Ascorbic Acid (Vitamin C) 1,000 mg DAILY ORAL 01/01/18 09:00 01/31/18 08:59 01/01/18 08:59 Bisacodyl (Dulcolax) 10 mg Q12H PRN ORAL Constipation 12/31/17 20:30 01/30/18 20:29 Calcium Carbonate ([place]) 1,250 mg BID ORAL 01/01/18 09:00 01/31/18 08:59 01/01/18 08:59 Carbidopa/Levodopa (Sinemet 25/) 1 tab DAILY@1200 ORAL 01/01/18 12:00 01/31/18 11:59 01/01/18 13:10 Carbidopa/Levodopa (Sinemet 25/100) 2 tab DAILY@1800 ORAL 01/01/18 18:00 01/31/18 17:59 Carbidopa/Levodopa (Sinemet 25/100) 2 tab TID@0500,0900,1500 ORAL 01/01/18 05:00 01/31/18 04:59 01/01/18 14:55 Carbidopa/Levodopa (Sinemet CR 50/ 200) 1 tab DAILY@2200 ORAL 01/01/18 22:00 01/31/18 21:59 Diphenhydramine HCl (Benadryl) 50 mg Q4H PRN ORAL Itching 12/31/17 20:30 01/30/18 20:29 Docusate Sodium (Colace) 100 mg Q12H PRN ORAL Constipation 12/31/17 20:30 01/30/18 20:29 Heparin Sodium (Porcine) (Heparin 5000 units/ml) 5,000 units EVERY 12 HOURS SUBQ 12/31/17 21:00 01/30/18 20:59 01/01/18 09:01 Lactobacillus Acidophilus (Culturelle) 1 tab DAILY ORAL 01/01/18 09:00 01/31/18 08:59 01/01/18 08:59 Levofloxacin 150 ml @ 100 mls/hr Q48H IVPB 01/01/18 15:00 01/08/18 14:59 Multivitamins Therapeutic (Therapeutic Multivitamin) 1 ea DAILY ORAL 01/01/18 09:00 01/31/18 08:59 01/01/18 08:59 Pantoprazole (Protonix) 40 mg DAILY ORAL 01/01/18 09:00 01/31/18 08:59 01/01/18 08:58 Quetiapine Fumarate (SEROquel) 50 mg BEDTIME ORAL 12/31/17 21:00 01/30/18 20:59 12/31/17 21:33 Sodium Chloride 1,000 ml @ 75 mls/hr [id number] IV 12/31/17 20:30 01/30/18 20:29 01/01/18 10:35 Assessment/Plan Assessment/Plan Problem List: (1) Parkinsons disease ICD Codes: G20 - Parkinson's disease SNOMED: 51141005 (2) UTI (urinary tract infection) ICD Codes: N39.0 - Urinary tract infection, site not specified SNOMED: 88675634 (3) GERD (gastroesophageal reflux disease) ICD Codes: K21.9 - Gastro-esophageal reflux disease without esophagitis SNOMED: 201284309 (4) Frequent falls ICD Codes: R29.6 - Repeated falls SNOMED: 522669133 (5) Head injury ICD Codes: S09.90XA - Unspecified injury of head, initial encounter SNOMED: 66295734 Qualifiers: Qualified Codes: S09.90XA - Unspecified injury of head, initial encounter Status: stable, progressing Assessment/Plan - Admit to inpatient - IV levaquin for UTI - f/u urine cx - PT eval for recurrent falls - CT head negative. CT cervical spine showing degenerative disease but no acute fx - fall precautions - pain control and supportive care Fall may likely be 2/2 patient's PD diagnosis and/or UTI. Markie Huerta M.D. January 02, 2018 14:14
[2018-01-02 16:00] VITALS: BP 139/87
[2018-01-02 20:00] VITALS: BP 128/75
[2018-01-02] MEDS: Levodopa/Carbidopa CR 50/200 tab ORAL SCH (21:23)
[2018-01-03] VITALS: BP 112/67
[2018-01-03 04:00] VITALS: BP 116/69
[2018-01-03] MEDS: Levodopa/Carbidopa 25/100 tab ORAL SCH ×5 (05:03→17:20)
[2018-01-03 08:00] VITALS: BP 115/71
[2018-01-03 08:06] LABS: BASOPHILS % (AUTO) 1.8 % (0.0-2.0); EOSINOPHILS % (AUTO) 6.8 % (0.0-3.0); HEMATOCRIT 37.7 % (37.0-47.0); HEMOGLOBIN 12.2 G/DL (12.0-16.0); LYMPHOCYTES % (AUTO) 28.1 % (20.0-45.0); MEAN CORPUSCULAR VOLUME 93 FL (80-99); MONOCYTES % (AUTO) 10.5 % (1.0-10.0); NEUTROPHILS % (AUTO) 52.9 % (45.0-75.0); PLATELET COUNT 263 K/UL (150-450); RED BLOOD COUNT 4.06 M/UL (4.20-5.40); RED CELL DISTRIBUTION WIDTH 11.3 % (11.6-14.8)
[2018-01-03 08:31] LABS: ALANINE AMINOTRANSFERASE 9 U/L (12-78); ALBUMIN 3.2 G/DL (3.4-5.0); ALBUMIN/GLOBULIN RATIO 0.9 (1.0-2.7); ALKALINE PHOSPHATASE 85 U/L (46-116); ANION GAP 7 mmol/L (5-15); ASPARTATE AMINO TRANSFERASE 17 U/L (15-37); BILIRUBIN,TOTAL 0.9 MG/DL (0.2-1.0); BLOOD UREA NITROGEN 15 mg/dL (7-18); CALCIUM 9.2 MG/DL (8.5-10.1); CARBON DIOXIDE 28 MMOL/L (21-32); CHLORIDE 105 MMOL/L (98-107); CREATININE 0.9 MG/DL (0.55-1.30); POTASSIUM 3.4 MMOL/L (3.5-5.1); SODIUM 140 MMOL/L (136-145)
[2018-01-03] MEDS: Multivitamin w/Minerals tab ORAL SCH (08:47)
[2018-01-03] MEDS: Lactobacillus-GG tablet ORAL SCH (08:47)
[2018-01-03] MEDS: Amantadine 100mg cap ORAL SCH (08:47)
[2018-01-03] MEDS: Ascorbic Acid 500mg tab ORAL SCH (08:48)
[2018-01-03] MEDS: Heparin 5000 units/ml inj SUBQ SCH ×2 (08:49→21:27)
[2018-01-03 12:00] VITALS: BP 105/62
[2018-01-03 16:00] VITALS: BP 113/65
--- NOTE | 2018-01-03 18:10 | Internal Med Progress Note ---
Subjective Physician Name DeannaSoniaimani Attending Physician Regino Marion MD Current Medications Medications (Trade) Dose Ordered Sig/Pablito Route PRN Reason Start Time Stop Time Status Last Admin Dose Admin Acetaminophen (Tylenol) 650 mg Q4H PRN ORAL Mild Pain/Temp > 100.5 12/31/17 20:30 01/30/18 20:29 Acetaminophen/ Hydrocodone Bitart ([place] 10/325) 1 tab Q4H PRN ORAL severe pain 12/31/17 20:30 01/07/18 20:29 Acetaminophen/ Hydrocodone Bitart ([place] 5/325) 1 tab Q4H PRN ORAL Moderate Pain (Pain Scale 4-6) 12/31/17 20:30 01/07/18 20:29 01/02/18 21:27 Amantadine HCl (Symmetrel) 100 mg DAILY ORAL 01/01/18 09:00 01/31/18 08:59 01/03/18 08:47 Ascorbic Acid (Vitamin C) 1,000 mg DAILY ORAL 01/01/18 09:00 01/31/18 08:59 01/03/18 08:48 Bisacodyl (Dulcolax) 10 mg Q12H PRN ORAL Constipation 12/31/17 20:30 01/30/18 20:29 Calcium Carbonate (Os-Gus) 1,250 mg BID ORAL 01/01/18 09:00 01/31/18 08:59 01/03/18 17:19 Carbidopa/Levodopa (Sinemet 25/100) 1 tab DAILY@1200 ORAL 01/01/18 12:00 01/31/18 11:59 01/03/18 11:43 Carbidopa/Levodopa (Sinemet 25/100) 2 tab DAILY@1800 ORAL 01/01/18 18:00 01/31/18 17:59 01/03/18 17:20 Carbidopa/Levodopa (Sinemet 25/100) 2 tab TID@0500,0900,1500 ORAL 01/01/18 05:00 01/31/18 04:59 01/03/18 14:52 Carbidopa/Levodopa (Sinemet CR 50/ 200) 1 tab DAILY@2200 ORAL 01/01/18 22:00 01/31/18 21:59 01/02/18 21:23 Diphenhydramine HCl (Benadryl) 50 mg Q4H PRN ORAL Itching 12/31/17 20:30 01/30/18 20:29 Docusate Sodium (Colace) 100 mg Q12H PRN ORAL Constipation 12/31/17 20:30 01/30/18 20:29 Heparin Sodium (Porcine) (Heparin 5000 units/ml) 5,000 units EVERY 12 HOURS SUBQ 12/31/17 21:00 01/30/18 20:59 01/03/18 08:49 Lactobacillus Acidophilus (Culturelle) 1 tab DAILY ORAL 01/01/18 09:00 01/31/18 08:59 01/03/18 08:47 Levofloxacin 100 ml @ 100 mls/hr Q24H IVPB 01/02/18 16:00 01/09/18 23:59 01/03/18 16:10 Multivitamins Therapeutic (Therapeutic Multivitamin) 1 ea DAILY ORAL 01/01/18 09:00 01/31/18 08:59 01/03/18 08:47 Pantoprazole (Protonix) 40 mg DAILY ORAL 01/01/18 09:00 01/31/18 08:59 01/03/18 08:46 Potassium Chloride (K-Dur) 40 meq ONCE ONCE ORAL 01/03/18 18:15 01/03/18 18:16 UNV Quetiapine Fumarate (SEROquel) 50 mg BEDTIME ORAL 12/31/17 21:00 01/30/18 20:59 01/02/18 21:23 Sodium Chloride 1,000 ml @ 75 mls/hr [id number] IV 12/31/17 20:30 01/30/18 20:29 01/03/18 11:48 Allergies: Coded Allergies: AMOXICILLIN (Verified Allergy, Unknown, 12/31/17) Objective Last Vital Signs Date Time Temp Pulse Resp B/P (MAP) Pulse Ox O2 Delivery O2 Flow Rate FiO2 01/03/18 16:00 98.3 72 18 113/65 95 Room Air 98.3 Laboratory Tests Test 01/03/18 06:10 White Blood Count 5.0 K/UL (4.8-10.8) Red Blood Count 4.06 M/UL (4.20-5.40) L Hemoglobin 12.2 G/DL (12.0-16.0) Hematocrit 37.7 % (37.0-47.0) Mean Corpuscular Volume 93 FL (80-99) Mean Corpuscular Hemoglobin 30.1 PG (27.0-31.0) Mean Corpuscular Hemoglobin Concent 32.5 G/DL (32.0-36.0) Red Cell Distribution Width 11.3 % (11.6-14.8) L Platelet Count 263 K/UL (150-450) Mean Platelet Volume 5.4 FL (6.5-10.1) L Neutrophils (%) (Auto) 52.9 % (45.0-75.0) Lymphocytes (%) (Auto) 28.1 % (20.0-45.0) Monocytes (%) (Auto) 10.5 % (1.0-10.0) H Eosinophils (%) (Auto) 6.8 % (0.0-3.0) H Basophils (%) (Auto) 1.8 % (0.0-2.0) Sodium Level 140 MMOL/L (136-145) Potassium Level 3.4 MMOL/L (3.5-5.1) L Chloride Level 105 MMOL/L (98-107) Carbon Dioxide Level 28 MMOL/L (21-32) Anion Gap 7 mmol/L (5-15) Blood Urea Nitrogen 15 mg/dL (7-18) Creatinine 0.9 MG/DL (0.55-1.30) Estimat Glomerular Filtration Rate mL/min (>60) Glucose Level 66 MG/DL (74-106) L Calcium Level 9.2 MG/DL (8.5-10.1) Total Bilirubin 0.9 MG/DL (0.2-1.0) Aspartate Amino Transf (AST/SGOT) 17 U/L (15-37) Alanine Aminotransferase (ALT/SGPT) 9 U/L (12-78) L Alkaline Phosphatase 85 U/L (46-116) Total Protein 6.9 G/DL (6.4-8.2) Albumin 3.2 G/DL (3.4-5.0) L Globulin 3.7 g/dL Albumin/Globulin Ratio 0.9 (1.0-2.7) L Microbiology Date/Time Source Procedure Growth Status 12/31/17 23:45 Straight Cath Urine Culture - Final Mixed Gram Positive Organism Complete Intake and Output 01/02/18 01/03/18 19:00 07:00 Intake Total 675 ml 945 ml Balance 675 ml 945 ml Intake Oral 600 ml 120 ml IV Total 75 ml 825 ml # Voids 3 3 # Bowel Movements 1 2 Assessment/Plan Assessment/Plan No acute events overnight HDS afeb baseline mental status Medication History Scheduled Amantadine Hcl* (Amantadine*), 100 MG ORAL DAILY, (Reported) Ascorbic Acid* (Vitamin C*), 1,000 MG ORAL DAILY, (Reported) Bisacodyl* (Dulcolax*), 5 MG ORAL DAILY, (Reported) Calcium Carbonate (Calcium Carbonate), 500 MG PO BID, (Reported) Carbidopa/Levodopa 25-100 Mg* (Sinemet 25-100 Mg Tablet*), 2 TAB ORAL QID, ( Reported) Carbidopa/Levodopa 25-100 Mg* (Sinemet 25-100 Mg Tablet*), 1 TAB ORAL daily at 1200, (Reported) Carbidopa/Levodopa Cr 50-200* (Sinemet Cr 50-200 Tablet*), 1 TAB ORAL DAILY, ( Reported) Lactobacillus Combo No.11 (Probiotic), 1 EACH PO DAILY, (Reported) Multivits,Th W-Fe,Other Min (Thera-M), 1 EACH PO DAILY, (Reported) Omeprazole (Omeprazole), 40 MG ORAL DAILY, (Reported) Quetiapine Fumarate* (Seroquel*), 50 MG ORAL BEDTIME, (Reported) Scheduled PRN Acetaminophen* (Acetaminophen 325MG Tablet*), 650 MG ORAL Q4H PRN for Mild Pain/ Temp > 100.5, (Reported) Bisacodyl (Dulcolax), 10 MG PO BID PRN for Constipation, (Reported) Diphenhydramine Hcl* (Benadryl*), 50 MG ORAL Q4HR PRN for Itching, (Reported) Docusate Sodium* (Colace*), 100 MG ORAL TWICE A DAY PRN for Constipation, ( Reported) Lorazepam* (Ativan*), 0.5 MG ORAL Q6HR PRN for For Anxiety, (Reported) Patient History History Provided By: Patient, Medical Record Healthcare decision maker Zachariah Malloy Resuscitation status Full Code Advanced Directive on File No ROS Review of Systems All Other Systems: negative except mentioned in HPI Physical Exam Physical Exam General Appearance: no apparent distress, alert HEENT: normocephalic, atraumatic, PERRL Neck: non-tender, normal alignment, supple Respiratory/Chest: chest wall non-tender, lungs clear, normal breath sounds Cardiovascular/Chest: normal peripheral pulses, normal rate, regular rhythm Abdomen: normal bowel sounds, non tender, soft Extremities: normal range of motion, non-tender Skin Exam: normal pigmentation, warm/dry Neurologic: client support administrator II-XII grossly normal, no motor/sensory deficits, alert, oriented x 3 Last 24 Hour Vital Signs Date Time Temp Pulse Resp B/P (MAP) Pulse Ox O2 Delivery O2 Flow Rate FiO2 01/01/18 08:00 97.2 72 12 144/80 98 Room Air 97.2 01/01/18 04:00 66 71 01/01/18 00:00 98.4 71 18 103/49 94 Room Air 98.4 12/31/17 20:00 98.3 77 19 139/74 95 Room Air 98.3 12/31/17 18:42 98.7 76 17 154/73 95 Room Air 98.7 12/31/17 16:19 98.7 76 17 154/73 95 Room Air 98.7 Intake and Output 12/31/17 01/01/18 19:00 07:00 Intake Total 500 ml 735 ml Balance 500 ml 735 ml Intake Oral 60 ml IV Total 500 ml 675 ml # Voids 2 Laboratory Tests Test 12/31/17 23:45 01/01/18 05:40 Urine Color Pale yellow Urine Appearance Cloudy Urine pH 5 (4.5-8.0) Urine Specific [place] 1.015 (1.005-1.035) Urine Protein 1+ (NEGATIVE) H Urine Glucose (UA) Negative (NEGATIVE) Urine Ketones 1+ (NEGATIVE) H Urine Occult Blood 3+ (NEGATIVE) H Urine Nitrite Negative (NEGATIVE) Urine Bilirubin Negative (NEGATIVE) Urine Urobilinogen 4 MG/DL (0.0-1.0) H Urine Leukocyte Esterase 3+ (NEGATIVE) H Urine RBC 15-20 /HPF (0 - 2) H Urine WBC Tntc /HPF (0 - 2) H Urine Squamous Epithelial Cells Moderate /LPF (NONE/OCC) H Urine Bacteria Many /HPF (NONE) H White Blood Count 5.0 K/UL (4.8-10.8) Red Blood Count 3.81 M/UL (4.20-5.40) L Hemoglobin 11.5 G/DL (12.0-16.0) L Hematocrit 35.4 % (37.0-47.0) L Mean Corpuscular Volume 93 FL (80-99) Mean Corpuscular Hemoglobin 30.2 PG (27.0-31.0) Mean Corpuscular Hemoglobin Concent 32.4 G/DL (32.0-36.0) Red Cell Distribution Width 11.2 % (11.6-14.8) L Platelet Count 260 K/UL (150-450) Mean Platelet Volume 5.8 FL (6.5-10.1) L Neutrophils (%) (Auto) 51.9 % (45.0-75.0) Lymphocytes (%) (Auto) 27.8 % (20.0-45.0) Monocytes (%) (Auto) 12.8 % (1.0-10.0) H Eosinophils (%) (Auto) 6.0 % (0.0-3.0) H Basophils (%) (Auto) 1.4 % (0.0-2.0) Sodium Level 142 MMOL/L (136-145) Potassium Level 3.8 MMOL/L (3.5-5.1) Chloride Level 109 MMOL/L (98-107) H Carbon Dioxide Level 27 MMOL/L (21-32) Anion Gap 6 mmol/L (5-15) Blood Urea Nitrogen 16 mg/dL (7-18) Creatinine 0.9 MG/DL (0.55-1.30) Estimat Glomerular Filtration Rate mL/min (>60) Glucose Level 84 MG/DL (74-106) Hemoglobin A1c 5.7 % (4.3-6.0) Calcium Level 8.7 MG/DL (8.5-10.1) Total Bilirubin 0.9 MG/DL (0.2-1.0) Aspartate Amino Transf (AST/SGOT) 11 U/L (15-37) L Alanine Aminotransferase (ALT/SGPT) 8 U/L (12-78) L Alkaline Phosphatase 76 U/L (46-116) Ammonia 25 umol/L (11-32) Total Protein 6.4 G/DL (6.4-8.2) Albumin 3.0 G/DL (3.4-5.0) L Globulin 3.4 g/dL Albumin/Globulin Ratio 0.9 (1.0-2.7) L Triglycerides Level 68 MG/DL (30-150) Cholesterol Level 154 MG/DL (< 200) LDL Cholesterol 92 mg/dL (<100) HDL Cholesterol 60 MG/DL (40-60) Cholesterol/HDL Ratio 2.6 (3.3-4.4) L Vitamin B12 Level 461 PG/ML (193-986) Vitamin D 25-Hydroxy Pending 25-Hydroxy Vitamin D2 Pending 25-Hydroxy Vitamin D3 Pending Folate 19.4 NG/ML (8.6-58.9) Thyroid Stimulating Hormone (TSH) 3.273 uiU/mL (0.358-3.740) Height (Feet): 5 Height (Inches): 5.00 Weight (Pounds): 170 Medications Current Medications Medications (Trade) Dose Ordered Sig/Pablito Route PRN Reason Start Time Stop Time Status Last Admin Dose Admin Acetaminophen (Tylenol) 650 mg Q4H PRN ORAL Mild Pain/Temp > 100.5 12/31/17 20:30 01/30/18 20:29 Acetaminophen/ Hydrocodone Bitart ([place] 10/325) 1 tab Q4H PRN ORAL severe pain 12/31/17 20:30 01/07/18 20:29 Acetaminophen/ Hydrocodone Bitart ([place] 5/325) 1 tab Q4H PRN ORAL Moderate Pain (Pain Scale 4-6) 12/31/17 20:30 01/07/18 20:29 Amantadine HCl (Symmetrel) 100 mg DAILY ORAL 01/01/18 09:00 01/31/18 08:59 01/01/18 08:59 Ascorbic Acid (Vitamin C) 1,000 mg DAILY ORAL 01/01/18 09:00 01/31/18 08:59 01/01/18 08:59 Bisacodyl (Dulcolax) 10 mg Q12H PRN ORAL Constipation 12/31/17 20:30 01/30/18 20:29 Calcium Carbonate (Os-Gus) 1,250 mg BID ORAL 01/01/18 09:00 01/31/18 08:59 01/01/18 08:59 Carbidopa/Levodopa (Sinemet 25/) 1 tab DAILY@1200 ORAL 01/01/18 12:00 01/31/18 11:59 01/01/18 13:10 Carbidopa/Levodopa (Sinemet 25/100) 2 tab DAILY@1800 ORAL 01/01/18 18:00 01/31/18 17:59 Carbidopa/Levodopa (Sinemet 25/100) 2 tab TID@0500,0900,1500 ORAL 01/01/18 05:00 01/31/18 04:59 01/01/18 14:55 Carbidopa/Levodopa (Sinemet CR 50/ 200) 1 tab DAILY@2200 ORAL 01/01/18 22:00 01/31/18 21:59 Diphenhydramine HCl (Benadryl) 50 mg Q4H PRN ORAL Itching 12/31/17 20:30 01/30/18 20:29 Docusate Sodium (Colace) 100 mg Q12H PRN ORAL Constipation 12/31/17 20:30 01/30/18 20:29 Heparin Sodium (Porcine) (Heparin 5000 units/ml) 5,000 units EVERY 12 HOURS SUBQ 12/31/17 21:00 01/30/18 20:59 01/01/18 09:01 Lactobacillus Acidophilus (Culturelle) 1 tab DAILY ORAL 01/01/18 09:00 01/31/18 08:59 01/01/18 08:59 Levofloxacin 150 ml @ 100 mls/hr Q48H IVPB 01/01/18 15:00 01/08/18 14:59 Multivitamins Therapeutic (Therapeutic Multivitamin) 1 ea DAILY ORAL 01/01/18 09:00 01/31/18 08:59 01/01/18 08:59 Pantoprazole (Protonix) 40 mg DAILY ORAL 01/01/18 09:00 01/31/18 08:59 01/01/18 08:58 Quetiapine Fumarate (SEROquel) 50 mg BEDTIME ORAL 12/31/17 21:00 01/30/18 20:59 12/31/17 21:33 Sodium Chloride 1,000 ml @ 75 mls/hr [id number] IV 12/31/17 20:30 01/30/18 20:29 01/01/18 10:35 Assessment/Plan Assessment/Plan Problem List: (1) Parkinsons disease ICD Codes: G20 - Parkinson's disease SNOMED: 29778005 (2) UTI (urinary tract infection) ICD Codes: N39.0 - Urinary tract infection, site not specified SNOMED: 56451728 (3) GERD (gastroesophageal reflux disease) ICD Codes: K21.9 - Gastro-esophageal reflux disease without esophagitis SNOMED: 760449363 (4) Frequent falls ICD Codes: R29.6 - Repeated falls SNOMED: 038548850 (5) Head injury ICD Codes: S09.90XA - Unspecified injury of head, initial encounter SNOMED: 18519020 Qualifiers: Qualified Codes: S09.90XA - Unspecified injury of head, initial encounter Status: stable, progressing Assessment/Plan - IV levaquin for UTI - f/u urine cx - PT eval for recurrent falls - CT head negative. CT cervical spine showing degenerative disease but no acute fx - fall precautions - pain control and supportive care Fall may likely be 2/2 patient's PD diagnosis and/or UTI. Markie Huerta M.D. January 03, 2018 18:10
[2018-01-03 20:00] VITALS: BP 128/78
[2018-01-03] MEDS: Levodopa/Carbidopa CR 50/200 tab ORAL SCH (21:26)
[2018-01-03] MEDS: Norco 5mg/325mg tab ORAL PRN (21:32)
[2018-01-04] VITALS: BP 122/57
[2018-01-04 04:00] VITALS: BP 126/73
[2018-01-04] MEDS: Levodopa/Carbidopa 25/100 tab ORAL SCH ×5 (05:01→17:10)
[2018-01-04] MEDS: Ascorbic Acid 500mg tab ORAL SCH (08:07)
[2018-01-04] MEDS: Lactobacillus-GG tablet ORAL SCH (08:07)
[2018-01-04] MEDS: Multivitamin w/Minerals tab ORAL SCH (08:09)
[2018-01-04] MEDS: Amantadine 100mg cap ORAL SCH (08:09)
[2018-01-04] MEDS: Heparin 5000 units/ml inj SUBQ SCH ×2 (08:12→21:01)
[2018-01-04 12:00] VITALS: BP 134/74
[2018-01-04] MEDS ORDERED: LEVAQUIN750 MG ORAL (13:10)
[2018-01-04 16:00] VITALS: BP 113/65
[2018-01-04 20:00] VITALS: BP 114/61
[2018-01-04] MEDS: Levodopa/Carbidopa CR 50/200 tab ORAL SCH (21:01)
[2018-01-04 21:26] VITALS: BP 95/52
--- NOTE | 2018-01-04 23:08 | General Progress Note ---
Assessment/Plan Problem List: (1) Parkinsons disease ICD Codes: G20 - Parkinson's disease SNOMED: 32409546 (2) UTI (urinary tract infection) ICD Codes: N39.0 - Urinary tract infection, site not specified SNOMED: 95933363 (3) GERD (gastroesophageal reflux disease) ICD Codes: K21.9 - Gastro-esophageal reflux disease without esophagitis SNOMED: 374980434 (4) Frequent falls ICD Codes: R29.6 - Repeated falls SNOMED: 798142622 (5) Head injury ICD Codes: S09.90XA - Unspecified injury of head, initial encounter SNOMED: 88554897 Qualifiers: Qualified Codes: S09.90XA - Unspecified injury of head, initial encounter Status: stable, progressing Assessment/Plan - IV levaquin for UTI - f/u urine cx - PT eval for recurrent falls -- recommending SNF - CT head negative. CT cervical spine showing degenerative disease but no acute fx - fall precautions - pain control and supportive care - DVT ppx Fall may likely be 2/2 patient's PD diagnosis and/or UTI. Medically cleared for discharge to [facility]. D/w housing case manager, nursing staff, and patient. Subjective Date patient seen: January 04, 2018 Time patient seen: 11:00 Allergies: Coded Allergies: AMOXICILLIN (Verified Allergy, Unknown, 12/31/17) Subjective - doing well - AF, HDS -- pending placement to [facility] Objective Last 24 Hour Vital Signs Date Time Temp Pulse Resp B/P (MAP) Pulse Ox O2 Delivery O2 Flow Rate FiO2 01/04/18 21:27 Nasal Cannula 3.0 01/04/18 21:26 97.3 82 20 95/52 Nasal Cannula 3.0 97.3 01/04/18 20:00 98.6 74 20 114/61 97 98.6 01/04/18 16:00 72 01/04/18 16:00 98.3 72 18 113/65 96 Room Air 98.3 01/04/18 12:00 97.7 74 14 134/74 96 Room Air 97.7 01/04/18 04:00 70 73 01/04/18 04:00 98.0 79 20 126/73 98 98.0 01/04/18 00:00 97.4 67 20 122/57 97 97.4 Intake and Output 01/03/18 01/04/18 19:00 07:00 Intake Total 895 ml 845 ml Balance 895 ml 845 ml Intake Oral 820 ml 20 ml IV Total 75 ml 825 ml # Voids 4 2 # Bowel Movements 3 1 Height (Feet): 5 Height (Inches): 5.00 Weight (Pounds): 170 General Appearance: no apparent distress, alert EENT: PERRL/EOMI, normal ENT inspection Neck: non-tender, normal alignment, supple Cardiovascular: normal peripheral pulses, normal rate, regular rhythm Respiratory/Chest: chest wall non-tender, lungs clear, normal breath sounds Abdomen: normal bowel sounds, non tender, soft Extremities: normal range of motion, non-tender Neurologic: manager instrumentation II-XII grossly normal, no motor/sensory deficits, alert, oriented x 3 Skin: normal pigmentation, warm/dry Duyen March NP January 04, 2018 23:08
[2018-01-05] VITALS: BP 100/53
[2018-01-05 04:00] VITALS: BP 138/81
[2018-01-05] MEDS: Levodopa/Carbidopa 25/100 tab ORAL SCH ×2 (05:11→09:53)
[2018-01-05 08:00] VITALS: BP 107/59
[2018-01-05 08:08] LABS: BASOPHILS % (AUTO) 1.5 % (0.0-2.0); EOSINOPHILS % (AUTO) 4.3 % (0.0-3.0); HEMATOCRIT 34.2 % (37.0-47.0); HEMOGLOBIN 11.2 G/DL (12.0-16.0); LYMPHOCYTES % (AUTO) 15.7 % (20.0-45.0); MEAN CORPUSCULAR VOLUME 92 FL (80-99); MONOCYTES % (AUTO) 9.3 % (1.0-10.0); NEUTROPHILS % (AUTO) 69.1 % (45.0-75.0); PLATELET COUNT 252 K/UL (150-450); RED BLOOD COUNT 3.72 M/UL (4.20-5.40); RED CELL DISTRIBUTION WIDTH 11.4 % (11.6-14.8); WHITE BLOOD COUNT 6.8 K/UL (4.8-10.8)
[2018-01-05 08:20] LABS: ANION GAP 5 mmol/L (5-15); BLOOD UREA NITROGEN 14 mg/dL (7-18); CALCIUM 8.5 MG/DL (8.5-10.1); CARBON DIOXIDE 28 MMOL/L (21-32); CHLORIDE 108 MMOL/L (98-107); CREATININE 0.8 MG/DL (0.55-1.30); POTASSIUM 3.9 MMOL/L (3.5-5.1); SODIUM 141 MMOL/L (136-145)
[2018-01-05] MEDS: Lactobacillus-GG tablet ORAL SCH (09:53)
[2018-01-05] MEDS: Ascorbic Acid 500mg tab ORAL SCH (09:53)
[2018-01-05] MEDS: Amantadine 100mg cap ORAL SCH (09:53)
[2018-01-05] MEDS: Multivitamin w/Minerals tab ORAL SCH (09:53)
[2018-01-05] MEDS: Heparin 5000 units/ml inj SUBQ SCH (09:54)
--- NOTE | 2018-01-05 11:29 | General Progress Note ---
Assessment/Plan Assessment/Plan AXIS I: Encephalopathy, delirium. AXIS II: Deferred. PLAN: We will start the patient on Seroquel p.r.n. Subjective Date patient seen: January 05, 2018 Neurologic/Psychiatric: Reports: anxiety, depressed, emotional problems Allergies: Coded Allergies: AMOXICILLIN (Verified Allergy, Unknown, 12/31/17) Objective Last 24 Hour Vital Signs Date Time Temp Pulse Resp B/P (MAP) Pulse Ox O2 Delivery O2 Flow Rate FiO2 01/05/18 08:00 98.1 76 16 107/59 95 98.1 01/05/18 04:00 98.1 68 20 138/81 98 98.1 01/05/18 04:00 70 73 01/05/18 00:00 98.0 75 20 100/53 98 98.0 01/04/18 21:27 Nasal Cannula 3.0 01/04/18 21:26 97.3 82 20 95/52 Nasal Cannula 3.0 97.3 01/04/18 20:00 98.6 74 20 114/61 97 98.6 01/04/18 16:00 72 01/04/18 16:00 98.3 72 18 113/65 96 Room Air 98.3 01/04/18 12:00 97.7 74 14 134/74 96 Room Air 97.7 Intake and Output 01/04/18 01/05/18 19:00 07:00 Intake Total 650 ml 825 ml Output Total 0 ml Balance 650 ml 825 ml Intake Oral 500 ml IV Total 150 ml 825 ml Output Hemodialysis UF 0 ml # Voids 3 3 # Bowel Movements 2 1 Laboratory Tests 01/05/18 07:00: White Blood Count 6.8, Red Blood Count 3.72L, Hemoglobin 11.2L, Hematocrit 34.2L , Mean Corpuscular Volume 92, Mean Corpuscular Hemoglobin 30.2, Mean Corpuscular Hemoglobin Concent 32.8, Red Cell Distribution Width 11.4L, Platelet Count 252, Mean Platelet Volume 5.7L, Neutrophils (%) (Auto) 69.1, Lymphocytes (%) (Auto) 15.7L, Monocytes (%) (Auto) 9.3, Eosinophils (%) (Auto) 4.3H, Basophils (%) (Auto) 1.5, Sodium Level 141, Potassium Level 3.9, Chloride Level 108H, Carbon Dioxide Level 28, Anion Gap 5, Blood Urea Nitrogen 14, Creatinine 0.8, Estimat Glomerular Filtration Rate , Glucose Level 94, Calcium Level 8.5 Height (Feet): 5 Height (Inches): 5.00 Weight (Pounds): 170 General Appearance: no apparent distress, confused, agitated Jass Olivares M.D. January 05, 2018 11:29
--- NOTE | 2018-01-05 15:10 | Psych Consult Progress Note ---
Psych Consult Progress Note Consult 01/04/18 AXIS I: Encephalopathy, delirium. AXIS II: Deferred. PLAN: We will start the patient on Seroquel p.r.n. Vital Signs Last 24 Hour Vital Signs Date Time Temp Pulse Resp B/P (MAP) Pulse Ox O2 Delivery O2 Flow Rate FiO2 01/05/18 08:00 98.1 76 16 107/59 95 98.1 01/05/18 04:00 98.1 68 20 138/81 98 98.1 01/05/18 04:00 70 73 01/05/18 00:00 98.0 75 20 100/53 98 98.0 01/04/18 21:27 Nasal Cannula 3.0 01/04/18 21:26 97.3 82 20 95/52 Nasal Cannula 3.0 97.3 01/04/18 20:00 98.6 74 20 114/61 97 98.6 01/04/18 16:00 72 01/04/18 16:00 98.3 72 18 113/65 96 Room Air 98.3 Labs Laboratory Tests Test 01/05/18 07:00 White Blood Count 6.8 K/UL (4.8-10.8) Red Blood Count 3.72 M/UL (4.20-5.40) L Hemoglobin 11.2 G/DL (12.0-16.0) L Hematocrit 34.2 % (37.0-47.0) L Mean Corpuscular Volume 92 FL (80-99) Mean Corpuscular Hemoglobin 30.2 PG (27.0-31.0) Mean Corpuscular Hemoglobin Concent 32.8 G/DL (32.0-36.0) Red Cell Distribution Width 11.4 % (11.6-14.8) L Platelet Count 252 K/UL (150-450) Mean Platelet Volume 5.7 FL (6.5-10.1) L Neutrophils (%) (Auto) 69.1 % (45.0-75.0) Lymphocytes (%) (Auto) 15.7 % (20.0-45.0) L Monocytes (%) (Auto) 9.3 % (1.0-10.0) Eosinophils (%) (Auto) 4.3 % (0.0-3.0) H Basophils (%) (Auto) 1.5 % (0.0-2.0) Sodium Level 141 MMOL/L (136-145) Potassium Level 3.9 MMOL/L (3.5-5.1) Chloride Level 108 MMOL/L (98-107) H Carbon Dioxide Level 28 MMOL/L (21-32) Anion Gap 5 mmol/L (5-15) Blood Urea Nitrogen 14 mg/dL (7-18) Creatinine 0.8 MG/DL (0.55-1.30) Estimat Glomerular Filtration Rate mL/min (>60) Glucose Level 94 MG/DL (74-106) Calcium Level 8.5 MG/DL (8.5-10.1) Jass Olivares M.D. January 05, 2018 15:10
--- NOTE | 2018-01-06 11:35 | Discharge Summary ---
Discharge Summary Discharge Summary _ DATE OF ADMISSION: 12/31/2017 DATE OF DISCHARGE: 01/05/2018 REASON FOR ADMISSION: 82 years old female with past medical history of Parkinson disease and GERD, presented to emergency department department from the half-way facility due to a history of recurrent falls. Patient reported that for the last several months she had been having frequent falls usually upon transferring from the wheelchair patient reported that she had a long history of volvulus issue since she was diagnosis of Parkinson disease patient is a wheelchair- bound. Patient was transferred from the [facility] for the wheelchair when she sleeps and fell. On she did not she did not remember if she lost consciousness or not and she denied head trauma. CT of the head revealed no acute intracranial pathology but showed evidence of old on cerebrovascular disease. CT of the cervical spine revealed no acute fracture but showed degenerative and moderate degenerative C-spine changes. Vital signs were stable. EKG revealed my EKG. Chest x-ray showed no acute cardiopulmonary pathology. No leukocytosis hemoglobin 11.7 hematocrit 35.9. Troponin negative. Urinalysis was positive for UTI. BU and 22 creatinine 1.2. Patient admitted with diagnosis frequent falls urinary tract infection Parkinson disease GERD head injury. CONSULTANTS: psychiatrist [facility]: Patient admitted to the hospital. Patient started on empiric antibiotic. Urine culture revealed mixed gram-positive organism. Patient was continued on antibiotic , which need to be completed at the half-way facility. Patient started on the gentle IV hydration. No evidence of orthostatic vital signs changes. Renal parameters and electrolytes were closely monitored, electrolytes replaced as needed, nephrotoxins were avoided. Patient started to work with physical and occupational therapists. Fall precautions were maintained. Pain was managed and addressed. Supportive care provided. Bowel regimen instituted. DVT and GI prophylaxis provided. Sinemet and amantadine were resumed. Psychiatrist closely followed patient and diagnosed her with encephalopathy with cognitive impairment and delirium. Psychiatrist added Seroquel on as needed basis. Patient was slowly improving. Recurrent fall probably due to the Parkinson disease, compounded by urinary tract infection and deconditioning. Patient was stable for discharge to the half-way facility for continuation of care. FINAL DIAGNOSES: Status post mechanical fall with history of frequent falls Parkinson disease Urinary tract infection Encephalopathy with cognitive impairment Head injury GERD DISCHARGE MEDICATIONS: See Medication Reconciliation list. DISCHARGE INSTRUCTIONS: Patient was discharged to half-way facility. Complete antibiotic as outlined in medication reconciliation list. Strict fall precautions, continued PT/ OT therapy at the half-way facility; follow-up with healthcare provider at the facility I have been assigned to dictate discharge summary for this account. I was not involved in the patient's management. Nohelia Kumari NP January 06, 2018 11:35
== END 2018-01-05 11:30 | DRG 913 ==
LOC: EDBD 13:25 → EMR 13:55 → 4E 16:25 → EDBEDREQ 16:58
DX: S09.90XA Unspecified injury of head, initial encounter (principal); G93.40 Encephalopathy, unspecified; N39.0 Urinary tract infection, site not specified; G20 Parkinson's disease; W19.XXXA Unspecified fall, initial encounter; Y92.009 Unspecified place in unspecified non-institutional (private) residence as the place of occurrence of the external cause; M50.30 Other cervical disc degeneration, unspecified cervical region; K21.9 Gastro-esophageal reflux disease without esophagitis; Z88.1 Allergy status to other antibiotic agents; R29.6 Repeated falls; Z99.3 Dependence on wheelchair; F03.90 Unspecified dementia, unspecified severity, without behavioral disturbance, psychotic disturbance, mood disturbance, and anxiety; F41.9 Anxiety disorder, unspecified; R41.0 Disorientation, unspecified
CPT/HCPCS: 36415; 70450; 71045; 72125; 80048; 80053; 80061; 81003; 82140; 82306; 82550; 82553; 82607; 82746; 83036; 83880; 84443; 84484; 85025; 87081; 87086; 93005; 99285; J8499

== ENCOUNTER 2018-10-07 13:58 | Inpatient (IN) | payer MEDICARE ==
[~2018-10-07] VITALS: Ht 203.2 cm; Wt 59.0 kg
[~2018-10-07 13:58] MED LIST: ACETAMINOPHEN325 M1 ORAL; AMANTADINE100 M2 ORAL; ATIVAN0.5 MG ORAL; BENADRYL25 MG ORAL; BISACODYL5 MG ORAL; CALCIUM CARBON500 M1 PO; COLACE100 MG ORAL; DULCOLAX5 MG PO; LEVAQUIN750 MG ORAL; OMEPRAZOLE40 M1 ORAL; PROBIOTIC1 EAC5 PO; QUETIAPINE FUM100 MG ORAL; SINEMET 25-1001 EAC1 ORAL; SINEMET CR 50-1 EACH ORAL; THERA-M1 EACH PO; VITAMIN C500 M1 ORAL
--- NOTE | 2018-10-07 14:20 | NUR ---
ED Nurse Note: patient was brought by RA from [facility]. per paramedics [facility] called 911 because patient has FTT. patient was placed on oxygen 2L, O2sat 95%. oter VSS at this time. skin is dry, intact, warm to touch. will continue to monitor.
[2018-10-07] MEDS ORDERED: DEPAKOTE250 MG PO (15:18)
[2018-10-07] MEDS ORDERED: CLARITIN10 M2 ORAL (15:18)
[2018-10-07] MEDS ORDERED: HIPREX PO (15:18)
[2018-10-07 15:20] LABS: APPEARANCE,URINE VERY CLOUDY; BILIRUBIN, URINE NEGATIVE (NEGATIVE); GLUCOSE, URINE (UA) NEGATIVE (NEGATIVE); KETONES,URINE 1+ (NEGATIVE); LEUKOCYTE ESTERASE ,URINE 3+ (NEGATIVE); NITRITE,URINE POSITIVE (NEGATIVE); PH,URINE 5 (4.5-8.0); PROTEIN,URINE 2+ (NEGATIVE); UROBILINOGEN,URINE NORMAL MG/DL (0.0-1.0)
[2018-10-07 15:25] LABS: COLOR,URINE YELLOW
[2018-10-07 15:29] LABS: HEMOGLOBIN 11.2 G/DL (12.0-16.0); LYMPHOCYTES % (AUTO) 17.2 % (20.0-45.0); MEAN CORPUSCULAR VOLUME 100 FL (80-99); MONOCYTES % (AUTO) 12.6 % (1.0-10.0); NEUTROPHILS % (AUTO) 66.2 % (45.0-75.0); PLATELET COUNT 257 K/UL (150-450); RED BLOOD COUNT 3.49 M/UL (4.20-5.40); RED CELL DISTRIBUTION WIDTH 13.1 % (11.6-14.8); WHITE BLOOD COUNT 10.1 K/UL (4.8-10.8)
[2018-10-07 15:36] LABS: ANION GAP 7 mmol/L (5-15); BLOOD UREA NITROGEN 56 mg/dL (7-18); CALCIUM 9.6 MG/DL (8.5-10.1); CARBON DIOXIDE 31 MMOL/L (21-32); CHLORIDE 111 MMOL/L (98-107); CREATININE 1.6 MG/DL (0.55-1.30); POTASSIUM 3.9 MMOL/L (3.5-5.1); SODIUM 149 MMOL/L (136-145)
[2018-10-07 15:46] LABS: ALANINE AMINOTRANSFERASE 10 U/L (12-78); ALBUMIN 2.9 G/DL (3.4-5.0); ALBUMIN/GLOBULIN RATIO 0.7 (1.0-2.7); ALKALINE PHOSPHATASE 71 U/L (46-116); ASPARTATE AMINO TRANSFERASE < 5 U/L (15-37); BILIRUBIN,TOTAL 0.4 MG/DL (0.2-1.0)
--- NOTE | 2018-10-07 17:01 | Emergency Room Report ---
History of Present Illness General Chief Complaint: Generalized Weakness Source: Medical Record, EMS Present Illness HPI 83-year-old female presents ED for evaluation. Brought in by EMS from [facility]. Nursing reports increased weakness in poor appetite for the last few days. Patient nonverbal at baselinehas history of dementia and Parkinson's. No signs of distress upon arrival. No reported fevers or chills. No nausea or vomiting. No signs of shortness of breath. No other aggravating relieving factors. No other associated symptoms Allergies: Coded Allergies: AMOXICILLIN (Verified Allergy, Unknown, 12/31/17) Patient History Past Medical History: dementia, psych hx Past Surgical History: none Pertinent Family History: none Social History: Denies: smoking, alcohol use, drug use Now: No Immunizations: UTD Reviewed Nursing Documentation: PMH: Agreed; PSxH: Agreed Nursing Documentation-PMH Past Medical History: No History, Except For Hx Cardiac Problems: No Hx Cancer: No Hx Gastrointestinal Problems: No History Of Psychiatric Problem: Yes - parkinson bipolar Hx Neurological Problems: Yes Hx Parkinson's Disease: Yes Hx Head Trauma: Yes Review of Systems All Other Systems: limited Physical Exam Vital Signs Date Time Temp Pulse Resp B/P (MAP) Pulse Ox O2 Delivery O2 Flow Rate FiO2 10/07/18 14:01 98.1 76 18 130/74 95 Room Air Sp02 EP Interpretation: reviewed, normal General Appearance: cachetic, thin Head: normocephalic Eyes: bilateral eye normal inspection, bilateral eye PERRL ENT: normal ENT inspection Neck: normal inspection Respiratory: chest non-tender, lungs clear, normal breath sounds, speaking full sentences Cardiovascular #1: regular rate, rhythm, no edema Gastrointestinal: normal bowel sounds, non tender, soft, non-distended, no guarding, no rebound Rectal: deferred Genitourinary: no CVA tenderness Musculoskeletal: normal inspection Neurologic: other - nonverbal Psychiatric: other - nonverbal Skin: normal inspection Lymphatic: normal inspection Medical Decision Making Diagnostic Impression: Primary Impression: Failure to thrive in adult Additional Impressions: Episode of generalized weakness UTI (urinary tract infection) Qualified Codes: N39.0 - Urinary tract infection, site not specified ER Course Hospital Course 83-year-old female presenting to ED with generalized weakness, poor appetite for a few days Differential diagnoses include: Pneumonia, UTI, sepsis, dehydration, KS/ unstable angina Clinical course Patient placed on stretcher. On engine monitor with stable vitals are ED course. After initial history and physical, I ordered labs, IV fluids, EKG, chest x-ray, blood cultures, UA. Labs - electrolytes ok, no leukocytosis, lactic ok, UA grossly positive for UTI EKG - NSR, no acute ischemic changes interpreted by me CXR - no acute process Abx given. given IVFs. patient is DNR/comfort Case discussed with Dr Benton and they agreed to admit patient to their service for further care and support I feel this is a highly complex case requiring extensive working including EKG/ Rhythm strip, Xray/CT/US, Blood/urine lab work, repeat exams while in ED, and administration of strong opiates/narcotics for pain control, admission to hospital or close patient follow up. Diagnosis - FTT, UTI, generalized weakness Patient admitted to floor in serious condition Labs Test 10/07/18 14:50 White Blood Count 10.1 K/UL (4.8-10.8) Red Blood Count 3.49 M/UL (4.20-5.40) Hemoglobin 11.2 G/DL (12.0-16.0) Hematocrit 35.0 % (37.0-47.0) Mean Corpuscular Volume 100 FL (80-99) Mean Corpuscular Hemoglobin 32.2 PG (27.0-31.0) Mean Corpuscular Hemoglobin Concent 32.1 G/DL (32.0-36.0) Red Cell Distribution Width 13.1 % (11.6-14.8) Platelet Count 257 K/UL (150-450) Mean Platelet Volume 7.1 FL (6.5-10.1) Neutrophils (%) (Auto) 66.2 % (45.0-75.0) Lymphocytes (%) (Auto) 17.2 % (20.0-45.0) Monocytes (%) (Auto) 12.6 % (1.0-10.0) Eosinophils (%) (Auto) 3.0 % (0.0-3.0) Basophils (%) (Auto) 1.0 % (0.0-2.0) Urine Color Yellow Urine Appearance Very cloudy Urine pH 5 (4.5-8.0) Urine Specific [place] 1.020 (1.005-1.035) Urine Protein 2+ (NEGATIVE) Urine Glucose (UA) Negative (NEGATIVE) Urine Ketones 1+ (NEGATIVE) Urine Blood 2+ (NEGATIVE) Urine Nitrite Positive (NEGATIVE) Urine Bilirubin Negative (NEGATIVE) Urine Urobilinogen Normal MG/DL (0.0-1.0) Urine Leukocyte Esterase 3+ (NEGATIVE) Urine RBC 2-4 /HPF (0 - 2) Urine WBC Tntc /HPF (0 - 2) Urine Squamous Epithelial Cells Many /LPF (NONE/OCC) Urine Bacteria Many /HPF (NONE) Sodium Level 149 MMOL/L (136-145) Potassium Level 3.9 MMOL/L (3.5-5.1) Chloride Level 111 MMOL/L (98-107) Carbon Dioxide Level 31 MMOL/L (21-32) Anion Gap 7 mmol/L (5-15) Blood Urea Nitrogen 56 mg/dL (7-18) Creatinine 1.6 MG/DL (0.55-1.30) Estimat Glomerular Filtration Rate mL/min (>60) Glucose Level 81 MG/DL (74-106) Lactic Acid Level 1.40 mmol/L (0.4-2.0) Calcium Level 9.6 MG/DL (8.5-10.1) Total Bilirubin 0.4 MG/DL (0.2-1.0) Aspartate Amino Transf (AST/SGOT) < 5 U/L (15-37) Alanine Aminotransferase (ALT/SGPT) 10 U/L (12-78) Alkaline Phosphatase 71 U/L (46-116) Pro-B-Type Natriuretic Peptide 437 pg/mL (0-125) Total Protein 7.0 G/DL (6.4-8.2) Albumin 2.9 G/DL (3.4-5.0) Globulin 4.1 g/dL Albumin/Globulin Ratio 0.7 (1.0-2.7) EKG Diagnostic Results Rate: normal Rhythm: NSR ST Segments: no acute changes ASA given to the pt in ED: No Rhythm Strip Diag. Results EP Interpretation: yes Rhythm: NSR, no PVC's, no ectopy Chest X-Ray Diagnostic Results Chest X-Ray Diagnostic Results : Chest X-Ray Ordered: Yes # of Views/Limited/Complete: 1 View Indication: Other EP Interpretation: Yes Interpretation: no consolidation, no effusion, no pneumothorax, no acute cardiopulmonary disease Impression: No acute disease Electronically Signed by: Electronically signed by Caio Clark MD Last Vital Signs Date Time Temp Pulse Resp B/P (MAP) Pulse Ox O2 Delivery O2 Flow Rate FiO2 10/07/18 14:01 98.1 76 18 130/74 95 Room Air Status: improved Disposition: ADMITTED INPATIENT Condition: Serious Referrals: Regino Marion MD (PCP) Caio Clark MD Oct 07, 2018 17:01
--- NOTE | 2018-10-07 17:02 | Diagnostic Imaging Report ---
Indication: Shortness of breath Technique: One view of the chest Comparison: 12/31/2017 Findings: Patient is rotated to the right. Normal heart size. Tortuous calcified aorta. Lungs and pleural spaces are clear. No significant change Impression: No acute process
[2018-10-07] MEDS ORDERED: LORazepam 0.5mg tab ORAL PRN (17:30)
[2018-10-07] MEDS ORDERED: Miralax 17gm pkt ORAL PRN (17:30)
[2018-10-07 17:37] VITALS: BP 115/65
[2018-10-07] MEDS ORDERED: METHENAMINE1 GM PO (18:04)
[2018-10-07] MEDS ORDERED: DEPAKOTE SPRIN125 MG PO (18:04)
[2018-10-07] MEDS ORDERED: LEXAPRO5 MG ORAL (18:04)
[2018-10-07] MEDS ORDERED: CRANBERRY450 M4 PO (18:04)
[2018-10-07] MEDS ORDERED: MULTIVITAMINS1 EA14 PO (18:04)
[2018-10-07] MEDS ORDERED: LORATADINE10 M2 PO (18:04)
[2018-10-07] MEDS ORDERED: DOCUSATE SODIU250 MG ORAL (18:12)
[2018-10-07] MEDS ORDERED: AMANTADINE100 M2 ORAL (18:12)
[2018-10-07 18:30] VITALS: BP 139/87
--- NOTE | 2018-10-07 19:48 | NUR ---
HAND-OFF: Report given to MICHELLE Jerez.
[2018-10-07 20:00] VITALS: BP 113/81
[2018-10-07] MEDS: Heparin 5000 units/ml inj SUBQ SCH (20:39)
[2018-10-07] MEDS: Levodopa/Carbidopa CR 50/200 tab ORAL SCH (20:46)
[2018-10-07] MEDS: Docusate 100mg cap ORAL SCH (20:46)
--- NOTE | 2018-10-07 20:54 | NUR ---
NURSE NOTES: Patient in bed, awake, unable to make needs known. REspiration is even and unlabored. Kept clean and comfortable. Provided safe environment. Call light is at bedside. Skin is warm and dry. IV site is noted. Patient unable to take PO medicine, not following commands. PO medications, crushed and wasted. No s/s of pain or discomfort noted. Will continue plan of care.
[2018-10-08] VITALS: BP 122/69
[2018-10-08 04:00] VITALS: BP 141/85
[2018-10-08] MEDS: Levodopa/Carbidopa 25/100 tab ORAL SCH ×5 (05:00→17:59)
--- NOTE | 2018-10-08 05:15 | NUR ---
NURSE NOTES: Patient in bed, awake. Patient unable to follow command. Unable to give PO medication. First tried to give apple sauce to swallow, patient was note following, patients mouth constantly open. Will reassess patient.
[2018-10-08 07:09] LABS: HEMATOCRIT 33.7 % (37.0-47.0); HEMOGLOBIN 11.1 G/DL (12.0-16.0); MEAN CORPUSCULAR VOLUME 98 FL (80-99); PLATELET COUNT 252 K/UL (150-450); RED BLOOD COUNT 3.44 M/UL (4.20-5.40); RED CELL DISTRIBUTION WIDTH 13.1 % (11.6-14.8)
[2018-10-08 07:10] LABS: BASOPHILS % (AUTO) 0.9 % (0.0-2.0); LYMPHOCYTES % (AUTO) 21.9 % (20.0-45.0); MONOCYTES % (AUTO) 12.5 % (1.0-10.0); NEUTROPHILS % (AUTO) 57.7 % (45.0-75.0)
--- NOTE | 2018-10-08 07:20 | NUR ---
HAND-OFF: Report given to Sierra Morales.
[2018-10-08 07:52] LABS: ALANINE AMINOTRANSFERASE 14 U/L (12-78); ALBUMIN 2.7 G/DL (3.4-5.0); ALBUMIN/GLOBULIN RATIO 0.7 (1.0-2.7); ALKALINE PHOSPHATASE 71 U/L (46-116); ANION GAP 10 mmol/L (5-15); ASPARTATE AMINO TRANSFERASE 6 U/L (15-37); BILIRUBIN,TOTAL 0.6 MG/DL (0.2-1.0); BLOOD UREA NITROGEN 39 mg/dL (7-18); CARBON DIOXIDE 28 MMOL/L (21-32); CHLORIDE 113 MMOL/L (98-107); CHOLESTEROL 155 MG/DL (< 200); CREATININE 1.1 MG/DL (0.55-1.30); FERRITIN 593 NG/ML (8-388); HDL CHOLESTEROL 52 MG/DL (40-60); PHOSPHORUS 2.5 MG/DL (2.5-4.9); POTASSIUM 3.9 MMOL/L (3.5-5.1); SODIUM 150 MMOL/L (136-145); TRIGLYCERIDES 72 MG/DL (30-150)
[2018-10-08 08:00] VITALS: BP 139/86
--- NOTE | 2018-10-08 08:00 | NUR ---
NURSE NOTES: Patient opens eyes when name called,respiration unlabored,will assist patient with breakfast,HOB elevated,oral care to be given, call light within reach.
[2018-10-08 08:03] LABS: GAMMA GLUTAMYL TRANSPEPTIDASE < 3 U/L (5-85)
[2018-10-08 08:34] LABS: % IRON SATURATION 49 % (15-50); IRON 81 ug/dL (50-175); TOTAL IRON BINDING CAPACITY 165 ug/dL (250-450)
[2018-10-08] MEDS ORDERED: Ascorbic Acid 500mg tab ORAL SCH (09:00)
[2018-10-08] MEDS: Docusate 100mg cap ORAL SCH ×2 (09:00→20:49)
[2018-10-08] MEDS: Amantadine 100mg cap ORAL SCH (09:00)
--- NOTE | 2018-10-08 09:10 | History and Physical ---
History of Present Illness General Date patient seen: Oct 08, 2018 Time patient seen: 08:00 Reason for Hospitalization: Generalized Weakness Present Illness HPI Brought in by EMS from shelter facility. Nursing reports increased weakness in poor appetite for the last few days. Patient nonverbal at baselinehas history of dementia and Parkinson's. No signs of distress upon arrival. No reported fevers or chills. No nausea or vomiting. No signs of shortness of breath. No other aggravating relieving factors. No other associated symptoms. In ED she was found to have SOWMYA and hypernatremia + pyuria and referred for admission. Social Hx: Unable to obtain Family Hx: Unable to obtain Allergies: Coded Allergies: AMOXICILLIN (Verified Allergy, Unknown, 12/31/17) Medication History Scheduled Amantadine Hcl* (Amantadine*), 100 MG ORAL TWICE A DAY, (Reported) Ascorbic Acid* (Vitamin C*), 1,000 MG ORAL DAILY, (Reported) Calcium Carbonate (Calcium Carbonate), 500 MG PO BID, (Reported) Carbidopa/Levodopa 25-100 Mg* (Sinemet 25-100 Mg Tablet*), 2 TAB ORAL QID, ( Reported) Carbidopa/Levodopa 25-100 Mg* (Sinemet 25-100 Mg Tablet*), 1 TAB ORAL daily at 1200, (Reported) Carbidopa/Levodopa Cr 50-200* (Sinemet Cr 50-200 Tablet*), 1 TAB ORAL DAILY, ( Reported) Cranberry Fruit Concentrate (Cranberry), 450 MG PO BID, (Reported) Divalproex Sodium (Depakote Sprinkle), 250 MG PO BID, (Reported) Docusate Sodium* (Docusate Sodium*), 250 MG ORAL DAILY, (Reported) Escitalopram Oxalate (Lexapro), 5 MG ORAL DAILY, (Reported) Lactobacillus Combo No.11 (Probiotic), 1 EACH PO DAILY, (Reported) Multivitamin (Multivitamins), 1 EACH PO DAILY, (Reported) Omeprazole (Omeprazole), 40 MG ORAL DAILY, (Reported) Quetiapine Fumarate* (Seroquel*), 50 MG ORAL BEDTIME, (Reported) Scheduled PRN Acetaminophen* (Acetaminophen 325MG Tablet*), 650 MG ORAL Q4H PRN for Mild Pain/ Temp > 100.5, (Reported) Bisacodyl (Dulcolax), 10 MG PO BID PRN for Constipation, (Reported) Loratadine (Loratadine), 10 MG PO Q4HR PRN for Itching, (Reported) Lorazepam* (Ativan*), 0.5 MG ORAL Q6HR PRN for For Anxiety, (Reported) Discontinued Medications Diphenhydramine Hcl* (Benadryl*), 50 MG ORAL Q4HR PRN for Itching, (Reported) Discontinued Reason: MD discontinued med Docusate Sodium* (Colace*), 100 MG ORAL TWICE A DAY PRN for Constipation, ( Reported) Discontinued Reason: Medication dose changed Levofloxacin* (Levaquin*), 750 MG ORAL DAILY Discontinued Reason: MD discontinued med Methenamine (Methenamine), 1 GM PO DAILY, (Reported) Discontinued Reason: Therapy completed Multivits,,Other Min (Thera-M), 1 EACH PO DAILY, (Reported) Discontinued Reason: MD discontinued med Patient History Healthcare decision maker KAYLYN RENEE Resuscitation status Do Not Intubate Advanced Directive on File Yes Review of Systems ROS Narrative Unable to obtain due to dementia Physical Exam General Appearance: alert, confused HEENT: atraumatic, anicteric Neck: normal alignment, supple Respiratory/Chest: lungs clear, normal breath sounds, no respiratory distress Cardiovascular/Chest: normal rate, regular rhythm Abdomen: non tender Extremities: non-tender, normal inspection Skin Exam: warm/dry Neurologic: gl accountant II-XII grossly normal, no motor/sensory deficits, alert Last 24 Hour Vital Signs Date Time Temp Pulse Resp B/P (MAP) Pulse Ox O2 Delivery O2 Flow Rate FiO2 10/08/18 04:00 98.2 76 17 141/85 (103) 99 10/08/18 00:00 97.9 70 20 122/69 (86) 97 10/07/18 21:00 Nasal Cannula 2.0 10/07/18 20:00 98.2 68 18 113/81 (92) 99 10/07/18 18:54 Nasal Cannula 4.0 10/07/18 18:30 98.1 77 18 139/87 (104) 94 10/07/18 17:37 98.0 71 16 115/65 95 Nasal Cannula 2.0 10/07/18 14:20 73 15 Nasal Cannula 2.0 95 10/07/18 14:01 98.1 76 18 130/74 95 Room Air Laboratory Tests Test 10/07/18 14:50 10/08/18 05:40 White Blood Count 10.1 K/UL (4.8-10.8) 6.0 K/UL (4.8-10.8) Red Blood Count 3.49 M/UL (4.20-5.40) L 3.44 M/UL (4.20-5.40) L Hemoglobin 11.2 G/DL (12.0-16.0) L 11.1 G/DL (12.0-16.0) L Hematocrit 35.0 % (37.0-47.0) L 33.7 % (37.0-47.0) L Mean Corpuscular Volume 100 FL (80-99) H 98 FL (80-99) Mean Corpuscular Hemoglobin 32.2 PG (27.0-31.0) H 32.3 PG (27.0-31.0) H Mean Corpuscular Hemoglobin Concent 32.1 G/DL (32.0-36.0) 32.9 G/DL (32.0-36.0) Red Cell Distribution Width 13.1 % (11.6-14.8) 13.1 % (11.6-14.8) Platelet Count 257 K/UL (150-450) 252 K/UL (150-450) Mean Platelet Volume 7.1 FL (6.5-10.1) 7.0 FL (6.5-10.1) Neutrophils (%) (Auto) 66.2 % (45.0-75.0) 57.7 % (45.0-75.0) Lymphocytes (%) (Auto) 17.2 % (20.0-45.0) L 21.9 % (20.0-45.0) Monocytes (%) (Auto) 12.6 % (1.0-10.0) H 12.5 % (1.0-10.0) H Eosinophils (%) (Auto) 3.0 % (0.0-3.0) 7.0 % (0.0-3.0) H Basophils (%) (Auto) 1.0 % (0.0-2.0) 0.9 % (0.0-2.0) Urine Color Yellow Urine Appearance Very cloudy Urine pH 5 (4.5-8.0) Urine Specific [place] 1.020 (1.005-1.035) Urine Protein 2+ (NEGATIVE) H Urine Glucose (UA) Negative (NEGATIVE) Urine Ketones 1+ (NEGATIVE) H Urine Blood 2+ (NEGATIVE) H Urine Nitrite Positive (NEGATIVE) H Urine Bilirubin Negative (NEGATIVE) Urine Urobilinogen Normal MG/DL (0.0-1.0) Urine Leukocyte Esterase 3+ (NEGATIVE) H Urine RBC 2-4 /HPF (0 - 2) H Urine WBC Tntc /HPF (0 - 2) H Urine Squamous Epithelial Cells Many /LPF (NONE/OCC) H Urine Bacteria Many /HPF (NONE) H Sodium Level 149 MMOL/L (136-145) H 150 MMOL/L (136-145) H Potassium Level 3.9 MMOL/L (3.5-5.1) 3.9 MMOL/L (3.5-5.1) Chloride Level 111 MMOL/L (98-107) H 113 MMOL/L (98-107) H Carbon Dioxide Level 31 MMOL/L (21-32) 28 MMOL/L (21-32) Anion Gap 7 mmol/L (5-15) 10 mmol/L (5-15) Blood Urea Nitrogen 56 mg/dL (7-18) H 39 mg/dL (7-18) H Creatinine 1.6 MG/DL (0.55-1.30) H 1.1 MG/DL (0.55-1.30) Estimat Glomerular Filtration Rate mL/min (>60) mL/min (>60) Glucose Level 81 MG/DL (74-106) 85 MG/DL (74-106) Lactic Acid Level 1.40 mmol/L (0.4-2.0) Calcium Level 9.6 MG/DL (8.5-10.1) 9.0 MG/DL (8.5-10.1) Total Bilirubin 0.4 MG/DL (0.2-1.0) 0.6 MG/DL (0.2-1.0) Aspartate Amino Transf (AST/SGOT) < 5 U/L (15-37) L 6 U/L (15-37) L Alanine Aminotransferase (ALT/SGPT) 10 U/L (12-78) L 14 U/L (12-78) Alkaline Phosphatase 71 U/L (46-116) 71 U/L (46-116) C-Reactive Protein, Quantitative 9.2 mg/dL (0.00-0.90) H Pro-B-Type Natriuretic Peptide 437 pg/mL (0-125) H 375 pg/mL (0-125) H Total Protein 7.0 G/DL (6.4-8.2) 6.8 G/DL (6.4-8.2) Albumin 2.9 G/DL (3.4-5.0) L 2.7 G/DL (3.4-5.0) L Globulin 4.1 g/dL 4.1 g/dL Albumin/Globulin Ratio 0.7 (1.0-2.7) L 0.7 (1.0-2.7) L Hemoglobin A1c 5.1 % (4.3-6.0) Uric Acid 6.1 MG/DL (2.6-7.2) Phosphorus Level 2.5 MG/DL (2.5-4.9) Magnesium Level 2.0 MG/DL (1.8-2.4) Iron Level 81 ug/dL (50-175) Total Iron Binding Capacity 165 ug/dL (250-450) L Percent Iron Saturation 49 % (15-50) Unsaturated Iron Binding 84 ug/dL (112-346) L Ferritin 593 NG/ML (8-388) H Gamma Glutamyl Transpeptidase < 3 U/L (5-85) L Troponin I 0.000 ng/mL (0.000-0.056) Triglycerides Level 72 MG/DL (30-150) Cholesterol Level 155 MG/DL (< 200) LDL Cholesterol 91 mg/dL (<100) HDL Cholesterol 52 MG/DL (40-60) Cholesterol/HDL Ratio 3.0 (3.3-4.4) L Vitamin B12 Level 825 PG/ML (193-986) Folate 21.0 NG/ML (8.6-58.9) Thyroid Stimulating Hormone (TSH) 2.425 uiU/mL (0.358-3.740) Microbiology Date/Time Source Procedure Growth Status 10/07/18 14:50 Urine,Clean Catch Urine Culture - Preliminary Gram Negative Bacillus 1 Resulted Height (Feet): 6 Height (Inches): 8.00 Weight (Pounds): 130 Medications Current Medications Medications (Trade) Dose Ordered Sig/Pablito Route PRN Reason Start Time Stop Time Status Last Admin Dose Admin Acetaminophen (Tylenol) 650 mg Q4H PRN ORAL Mild Pain (Pain Scale 1-3) 10/07/18 17:30 11/06/18 17:29 Amantadine HCl (Symmetrel) 100 mg DAILY ORAL 10/08/18 09:00 11/07/18 08:59 Ascorbic Acid (Vitamin C) 1,000 mg DAILY ORAL 10/08/18 09:00 11/07/18 08:59 Carbidopa/Levodopa (Sinemet 25/100) 1 tab Q24H ORAL 10/08/18 12:00 11/07/18 11:59 Carbidopa/Levodopa (Sinemet 25/100) 2 tab 0500,0900,1500,1800 ORAL 10/08/18 05:00 11/07/18 04:59 Carbidopa/Levodopa (Sinemet CR 50/ 200) 1 tab QHS ORAL 10/07/18 21:00 11/06/18 20:59 Dextrose (Dextrose 50%) 25 ml Q30M PRN IV Hypoglycemia 10/07/18 17:30 11/06/18 17:29 Dextrose (Dextrose 50%) 50 ml Q30M PRN IV Hypoglycemia 10/07/18 17:30 11/06/18 17:29 Diphenhydramine HCl (Benadryl) 50 mg Q4H PRN ORAL Itching 10/07/18 17:30 11/06/18 17:29 Divalproex Sodium (Depakote) 250 mg Q12HR ORAL 10/07/18 21:00 11/06/18 20:59 Docusate Sodium (Colace) 100 mg EVERY 12 HOURS ORAL 10/07/18 21:00 11/06/18 20:59 Heparin Sodium (Porcine) (Heparin 5000 units/ml) 5,000 units EVERY 12 HOURS SUBQ 10/07/18 21:00 11/06/18 20:59 10/07/18 20:39 Levofloxacin 100 ml @ 100 mls/hr DAILY IVPB 10/08/18 09:00 10/15/18 08:59 Lorazepam (Ativan) 0.5 mg Q6H PRN ORAL For Anxiety 10/07/18 17:30 10/14/18 17:29 Ondansetron HCl (Zofran) 4 mg Q6H PRN IVP Nausea & Vomiting 10/07/18 17:30 11/06/18 17:29 Polyethylene Glycol (Miralax) 17 gm HSPRN PRN ORAL Constipation 10/07/18 17:30 11/06/18 17:29 Quetiapine Fumarate (SEROquel) 50 mg BEDTIME ORAL 10/07/18 21:00 11/06/18 20:59 Assessment/Plan Assessment/Plan #Weight loss #Poor oral intake #Failure to thrive #Severe dementia #Parkinsons Disease #Hypernatremia #SOWMYA #Dehydration -admit to inpatient -IV hydration with D5NS -monitor BMP -Nephrology consulted -Discussed with son possibility of PEG placement, he will review advanced directives and discuss with family -Continue Sinemet -Continue amantadine -Provide supportive care -Aspiration precautions -Fall precautions -Frequent orienting #Gram negative UTI -continue Levaquin -follow up culture -Mood disorder -Bipolar depression -continue Lexapro and Depakote VTE PPx heparin SC DNR INPATIENT level of care is warranted for this patient because patient is a 83 year old severe dementia who presents with SOWMYA and UTI. Patient is at high risk for sepsis. Plan of care/treatment include IV fluids and IV antibiotics. Patient care is expected to be greater than 2 midnights. Disposition:Once the patient is stable to leave the hospital, I anticipate the patient will likely be discharged to the following environment SNF Estimated discharge date: TBD High complexity medical decision making (need 2/3 categories) Problem - need 4 points XAcute/new problem with new plan for workup (4 points, 1 max) XAcute/new problem without additional workup (3 points, 1 max) XUnstable chronic problem actively being managed (2 point each, 2 max) XStable chronic problem actively being managed (1 point each, 2 max) XSelf-limited/transient process (constipation, muscle ache, etc) (1 point each, 2 max) Data - need 4 points XReviewed labs/imaging studies (1 points, 2 max) XIndependent review of imaging (EKG, xrays, etc) (2 points, 2 max) XDiscussed case with consult/other MD/RN (2 points, 2 max) High Risk - qualify if have one of the following: XSevere exacerbation of acute problem, acute mental status change, IV narcotics , monitoring drug levels (vancomycin, INR, tacrolimus etc) I spent 70 minutes on this patient's case, and 35 minutes was dedicated to counseling and/or care coordination. Alban Pickard MD Oct 08, 2018 09:10
--- NOTE | 2018-10-08 10:00 | NUR ---
NURSE NOTES: ST Moyer was here to evaluate patient,patient took a small amount of thicken liquids,patient hold thicken liquid in mouth and what appears to be delay in swallowing,Patient not able to take po medication,patient son was in the room and aware,son stated that patient not to have Addendum: 10/08/18 at 1400 by EULALIO SHOEMAKER RN RN any mechanical feeding and that Advance Directive Document will be submitted today for patient.
--- NOTE | 2018-10-08 10:01 | NUR ---
ST NOTE: BEDSIDE SWALLOW EVAL RECEIVED BEDSIDE SWALLOW EVAL CHART REVIEWED PRIOR THE EVALUATION PT IS A 83-YEAR-OLD FEMALE WHO WAS ADMITTED DUE TO FAILURE TO THRIVE AND WEIGHT LOSS. DYSPHAGIA RISK FACTORS: SIGNIFICANT PARKINSON'S DZ, DEMENTIA, GERD, PSYCH(SCHIZOAFFECTIVE DISORDER), UTI PER CXR: NO ACUTE PROCESS PER HEAD CT(12/31/17): MODERATE ATROPHY OF THE BRAIN PT IS CURRENTLY ON SINEMET, SEROQUEL, ZOFRAN AND ATIVAN PLOF: PT RESIDES AT ALF FACILITY. PER CHART, PT WAS ON [facility] SOFT(FINELY CHOPPED) WITH THIN LIQUIDS DIET. PER PT'S POLST: DNR, COMFORT MEASURE ONLY AND NO ARTIFICIAL NUTRITION BY TUBES. CURRENT STATUS: PT SEEN AT BEDSIDE IN AM. ALERT, COOPERATIVE, DECREASED ABILITY OF FOLLOWING DIRECTIONS. PT WITH NC(3L). PT'S SON IS AT BEDSIDE. COMPLETED ORAL CARE WITH SUCTION PRIOR PO TRIALS. GIVEN PO TRIALS: NECTAR THICK(TSP) INITIAL IMPRESSION: S/S OF MODERATE OR WORSENED OROPHARYNGEAL DYSPHAGIA POOR DENTITION(ONE MOLAR TEETH AT ON THE R-SIDED SEEMS DECAYED) DECREASED LINGUAL MOVEMENT AND STRENGTH(ABLE TO STICK OUT THE TONGUE, BUT N NOT LATERALLY) MILD TO MODERATE ORAL TRANSIT TIME TIME AND OROPHARYNGEAL TRANSIT TIME FAIR HYO-LARYNGEAL ELEVATION, NO OVERT S/S OF ASPIRATION. HAS HIGH RISK FOR (SILENT) ASPIRATION. RECOMMENDATIONS: 1. DISCUSSED WITH PT'S SON, PER PT'S WISHES AND ALSO ON THE POLST, NO ARTIFICIAL FEEDING(NGT/G-TUBE), PO SHOULD BE GIVEN FOR QUALITY OF LIFE(COMFORT FEEDING), DOWNGRADED TO LIQUIFIED PUREED, LIKE NECTAR THICK SOUP CONSISTENCY WITH NECTAR THICK LIQUIDS. 2. STRICT ASPIRATION/REFLUX PRECAUTIONS WITH 1TO1 FEEDING AT TEASPOON LEVEL. 3. VIDEOSWALLOW STUDY IF NEEDED. 4. CONSIDER PALLIATIVE CARE. D/W PT'S SON, AND RN, EULALIO. POSTED ASPIRATION/REFLUX PRECAUTIONS SIGN
[2018-10-08] MEDS: Heparin 5000 units/ml inj SUBQ SCH ×2 (10:02→20:49)
--- NOTE | 2018-10-08 10:17 | NUR ---
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 98.0, Reps. 18, O2Sat 95 Room Air RBC 3.49, Hgb 11.2, Hct 35.0, MCV 100, MCH 32.2, Lymph% 17.2, [place]% 12.6 CXR Impression: No acute process IS: 2.0 L O2 NC NS IV x1L Levofloxacin IVPB Sinemet CR PO MED/SURG Status DC Plan Return to SNF
--- NOTE | 2018-10-08 13:30 | NUR ---
RD ASSESSMENT & RECOMMENDATIONS SEE CARE ACTIVITY FOR COMPLETE ASSESSMENT DAILY ESTIMATED NEEDS: Needs based on Weight loss, underweight, mild to moderate wasting 53.6kg 30-35 kcals/kg 1233-8963 total kcals 1-1.5 g protein/kg 54-80 g total protein 25-30 mL/kg 2342-1786 total fluid mLs NUTRITION DIAGNOSIS: 1) Inadequate oral intake r/t dysphagia, dementia, FTT as evidenced by pt adm w/ decreased oral intake, 14# wt loss (11% severe wt change) x4 weeks, pt is 87% of [place] Body Weight. 2) Swallowing difficulty r/t dysphagia as evidenced by CHILD DEVELOPMENT DIRECTOR eval w/ recs for liquify puree NTL diet CURRENT DIET: Now REGULAR LIQUIFY PUREE W/ NTL PO DIET RECOMMENDATIONS: LIBERALIZED REGULAR DIET (texture per CHILD DEVELOPMENT DIRECTOR) ENTERAL NUTRITION RECOMMENDATIONS: Jevity 1.2 @60ml/hr x24 hrs to provide 1440ml, 1728 kcal, 80g prot, 1162ml free H2O - If part of POC, rec to obtain GI access, initiate TF @20ml for 8 hrs - Advance SLOWLY 10ml/hr q6 hrs to goal of 60ml/hr x24 hrs - Flush per MD. HOB over 30 degrees ADDITIONAL RECOMMENDATIONS: 1) TXR PT TO BED W/ FUNCTIONING SCALE -> WEEKLY WTS/ PT ADM W/ SEVERE WT LOSS 2) ADD ENSURE TID W/ ORAL DIET 3) MONITOR LYTES, REPLETE NEEDED 4) F/UP W/ WC EVAL 5) TF RECS ABOVE IF PART OF POC
--- NOTE | 2018-10-08 15:50 | NUR ---
NURSE NOTES: WOUND CARE NOTES:Pt presented on admission with multiple skin breakdown.Pt very frail ,and is on Oxygen via nasal cannula.Both ears assessed and no skin breakdown noted. Incontinence associated dermatitis noted to perineum and cleft of buttocks. Non-blanchable erythema noted to sacrococcygeal area.Non-blanchable erythema noted to R and Ischial regions. Historical scar noted to R knee. Non-blanchable erythema medial aspect of L knee. R knee pink.Non-blanchable erythema without fluctuance noted to R and L lateral malleoli. Both heels are boggy but blanchable. Tx.Plan: Apply Moisture Barrier Paste to Sacrum .Cover with Optifoam drsg. Change every 3 days and prn. Apply Moisture Barrier to perineum and Both ischial regions with each perineal care. Apply Cavilon Skin Barrier to to medial aspects of both knees. Change every 7 days and prn. Apply Cavilon Skin Barrier to R and L malleoli.Cover with Optifoam drsgs. Change every 7 days and prn. Apply Cavilon Skiin Barrier to both heels .Cover each heel with Optifoam drsgs .Change every 7 days and prn. APM/ROBYN mattress. Reposition at least every 2hours or as tolerated.
[2018-10-08 16:00] VITALS: BP 129/82
--- NOTE | 2018-10-08 18:41 | Consultation ---
Consult Note Consult Note asked to eval for eleveted 83-year-old female presents ED for evaluation. Brought in by EMS from [facility]. Nursing reports increased weakness in poor appetite for the last few days. Patient nonverbal at baselinehas history of dementia and Parkinson's. No signs of distress upon arrival. No reported fevers or chills. No nausea or vomiting. No signs of shortness of breath. No other aggravating relieving factors. No other associated symptoms Allergies: AMOXICILLIN (Verified Allergy, Unknown, 12/31/17) Past Medical History: No History, Except For History Of Psychiatric Problem: Yes - parkinson bipolar Hx Neurological Problems: Yes Hx Parkinson's Disease: Yes Hx Head Trauma: Yes patient non historian weak frial pale record reviewed Assessment/Plan Renal failure likely dehydration Failure to Thrive and weight loss Poor Cognition HyperNatremia, Free water deficit UTI Parkinsons -IV hydration D5W -monitor Renal Parameter -PMD Discussed with son possibility of PEG placement, he will review advanced directives and discuss with family -Aspiration precautions -Fall precautions Avoid mind altering Arnaldo Snider MD Oct 08, 2018 18:41
--- NOTE | 2018-10-08 19:00 | NUR ---
NURSE NOTES: Oral care given through the day,patient sleeps with mouth open,patient still not eating or drinking,IV fluids infusing as ordered.
--- NOTE | 2018-10-08 19:25 | NUR ---
HAND-OFF: Report given to DANIEL MARTINEZ.
--- NOTE | 2018-10-08 19:39 | NUR ---
NURSE NOTES: Patient in bed, awake, confused. UNable to make needs known. Respiration is even , nasal cannula 3L. Skin is warm and dry. Multiple dressing noted. Kept clean and comfortable. No s/s of pain or discomfort noted. Call light is at bedside. Will continue plan of care.
[2018-10-08 19:52] VITALS: BP 135/79
--- NOTE | 2018-10-08 20:43 | NUR ---
NURSE NOTES: Attempted to feed patient some dinner, patient was not following commands. Patient not able to swallow. Will not give PO medication. Patients mouth is open. NO s/s of distress noted. Will continue plan of care.
[2018-10-08] MEDS: Levodopa/Carbidopa CR 50/200 tab ORAL SCH (20:49)
[2018-10-09] VITALS: BP 129/73
[2018-10-09 04:00] VITALS: BP 113/79
[2018-10-09] MEDS: Levodopa/Carbidopa 25/100 tab ORAL SCH ×5 (05:00→17:33)
--- NOTE | 2018-10-09 07:16 | NUR ---
HAND-OFF: Report given to MICHELLE Posada.
--- NOTE | 2018-10-09 07:35 | NUR ---
NURSE NOTES: Received patient in bed, easily arousable to name, patient knows her name but confused. No s/s of pain per FLACC pain scale. Breathing is even and unlabored with oxygen. IV intact, no s/s of infiltration and IVF running. Bed is in lowest position and locked. Call light within reach. Will continue plan of care.
[2018-10-09 08:00] VITALS: BP 115/80
[2018-10-09 08:20] LABS: BASOPHILS % (AUTO) 1.1 % (0.0-2.0); EOSINOPHILS % (AUTO) 4.2 % (0.0-3.0); HEMATOCRIT 34.1 % (37.0-47.0); HEMOGLOBIN 11.2 G/DL (12.0-16.0); LYMPHOCYTES % (AUTO) 17.1 % (20.0-45.0); MEAN CORPUSCULAR VOLUME 97 FL (80-99); MONOCYTES % (AUTO) 13.4 % (1.0-10.0); NEUTROPHILS % (AUTO) 64.2 % (45.0-75.0); PLATELET COUNT 236 K/UL (150-450); RED CELL DISTRIBUTION WIDTH 12.7 % (11.6-14.8); WHITE BLOOD COUNT 7.9 K/UL (4.8-10.8)
[2018-10-09 08:45] LABS: ALANINE AMINOTRANSFERASE 18 U/L (12-78); ALBUMIN 2.6 G/DL (3.4-5.0); ALBUMIN/GLOBULIN RATIO 0.7 (1.0-2.7); ALKALINE PHOSPHATASE 67 U/L (46-116); ANION GAP 6 mmol/L (5-15); ASPARTATE AMINO TRANSFERASE 9 U/L (15-37); BILIRUBIN,TOTAL 0.5 MG/DL (0.2-1.0); BLOOD UREA NITROGEN 27 mg/dL (7-18); CALCIUM 8.8 MG/DL (8.5-10.1); CARBON DIOXIDE 29 MMOL/L (21-32); CHLORIDE 109 MMOL/L (98-107); POTASSIUM 3.4 MMOL/L (3.5-5.1); SODIUM 144 MMOL/L (136-145)
[2018-10-09] MEDS: Docusate 100mg cap ORAL SCH ×2 (09:00→20:35)
[2018-10-09] MEDS: Amantadine 100mg cap ORAL SCH (09:00)
[2018-10-09] MEDS: Heparin 5000 units/ml inj SUBQ SCH ×2 (09:01→20:34)
--- NOTE | 2018-10-09 09:25 | NUR ---
NURSE NOTES: RN prepared 9:00am scheduled medication but unable to administer meds due to patient is sleepy and does not follow commands. Wasted meds.
--- NOTE | 2018-10-09 09:43 | NUR ---
NURSE NOTES: RN spoke to Dr. parker and informed potassium level 3.4, phosphorus 2.0 and cr 1.0 with new order. Order read back and carried out.
--- NOTE | 2018-10-09 11:26 | Consultation ---
History of Present Illness General Chief Complaint: Generalized Weakness Present Illness HPI 83-year-old female presents ED for evaluation, the pt has mmp and bipolar do. the pt has decrease appetite and weakness. the pt is withdrawn and depressed. the pt has memory impairment and is unable to provide hx. the pt is unable to understand, process nor appreciate the info given to her. the pt has no insight. Allergies: Coded Allergies: AMOXICILLIN (Verified Allergy, Unknown, 12/31/17) Medication History Scheduled Amantadine Hcl* (Amantadine*), 100 MG ORAL TWICE A DAY, (Reported) Ascorbic Acid* (Vitamin C*), 1,000 MG ORAL DAILY, (Reported) Calcium Carbonate (Calcium Carbonate), 500 MG PO BID, (Reported) Carbidopa/Levodopa 25-100 Mg* (Sinemet 25-100 Mg Tablet*), 2 TAB ORAL QID, ( Reported) Carbidopa/Levodopa 25-100 Mg* (Sinemet 25-100 Mg Tablet*), 1 TAB ORAL daily at 1200, (Reported) Carbidopa/Levodopa Cr 50-200* (Sinemet Cr 50-200 Tablet*), 1 TAB ORAL DAILY, ( Reported) Cranberry Fruit Concentrate (Cranberry), 450 MG PO BID, (Reported) Divalproex Sodium (Depakote Sprinkle), 250 MG PO BID, (Reported) Docusate Sodium* (Docusate Sodium*), 250 MG ORAL DAILY, (Reported) Escitalopram Oxalate (Lexapro), 5 MG ORAL DAILY, (Reported) Lactobacillus Combo No.11 (Probiotic), 1 EACH PO DAILY, (Reported) Multivitamin (Multivitamins), 1 EACH PO DAILY, (Reported) Omeprazole (Omeprazole), 40 MG ORAL DAILY, (Reported) Quetiapine Fumarate* (Seroquel*), 50 MG ORAL BEDTIME, (Reported) Scheduled PRN Acetaminophen* (Acetaminophen 325MG Tablet*), 650 MG ORAL Q4H PRN for Mild Pain/ Temp > 100.5, (Reported) Bisacodyl (Dulcolax), 10 MG PO BID PRN for Constipation, (Reported) Loratadine (Loratadine), 10 MG PO Q4HR PRN for Itching, (Reported) Lorazepam* (Ativan*), 0.5 MG ORAL Q6HR PRN for For Anxiety, (Reported) Discontinued Medications Diphenhydramine Hcl* (Benadryl*), 50 MG ORAL Q4HR PRN for Itching, (Reported) Discontinued Reason: MD discontinued med Docusate Sodium* (Colace*), 100 MG ORAL TWICE A DAY PRN for Constipation, ( Reported) Discontinued Reason: Medication dose changed Levofloxacin* (Levaquin*), 750 MG ORAL DAILY Discontinued Reason: MD discontinued med Methenamine (Methenamine), 1 GM PO DAILY, (Reported) Discontinued Reason: Therapy completed Multivits,-,Other Min (Thera-M), 1 EACH PO DAILY, (Reported) Discontinued Reason: MD discontinued med Patient History Limited by: medical condition History Provided By: Medical Record, PMD Healthcare decision maker KAYLYN RENEE Resuscitation status Do Not Intubate Advanced Directive on File Yes Past Medical/Surgical History Past Medical/Surgical History: (1) GERD (gastroesophageal reflux disease) (2) Weakness (3) Episode of generalized weakness (4) UTI (urinary tract infection) (5) Dementia with behavioral disturbance (6) Acute metabolic encephalopathy (7) Parkinsons disease (8) Failure to thrive in adult (9) Dehydration Review of Systems Psychiatric: Reports: prior hx, anxiety, depressed feelings, emotional problems Physical Exam General Appearance: no apparent distress, alert, lethargic - waxing and waning , confused, cachetic Last 24 Hour Vital Signs Date Time Temp Pulse Resp B/P (MAP) Pulse Ox O2 Delivery O2 Flow Rate FiO2 10/09/18 09:00 Nasal Cannula 2.0 10/09/18 08:00 98.1 77 17 115/80 (92) 97 10/09/18 04:00 98.1 75 16 113/79 (90) 96 10/09/18 00:00 98.8 68 16 129/73 (91) 98 10/08/18 21:00 Nasal Cannula 2.0 10/08/18 19:52 97.3 76 20 135/79 (97) 98 10/08/18 16:00 97.7 76 18 129/82 (98) Intake and Output 10/08/18 10/09/18 19:00 07:00 Intake Total 562.5 ml 675 ml Output Total 400 ml Balance 162.5 ml 675 ml Intake IV Total 562.5 ml 675 ml Output Urine Total 400 ml # Voids 2 Laboratory Tests Test 10/09/18 06:45 White Blood Count 7.9 K/UL (4.8-10.8) Red Blood Count 3.50 M/UL (4.20-5.40) L Hemoglobin 11.2 G/DL (12.0-16.0) L Hematocrit 34.1 % (37.0-47.0) L Mean Corpuscular Volume 97 FL (80-99) Mean Corpuscular Hemoglobin 32.0 PG (27.0-31.0) H Mean Corpuscular Hemoglobin Concent 32.9 G/DL (32.0-36.0) Red Cell Distribution Width 12.7 % (11.6-14.8) Platelet Count 236 K/UL (150-450) Mean Platelet Volume 6.5 FL (6.5-10.1) Neutrophils (%) (Auto) 64.2 % (45.0-75.0) Lymphocytes (%) (Auto) 17.1 % (20.0-45.0) L Monocytes (%) (Auto) 13.4 % (1.0-10.0) H Eosinophils (%) (Auto) 4.2 % (0.0-3.0) H Basophils (%) (Auto) 1.1 % (0.0-2.0) Sodium Level 144 MMOL/L (136-145) Potassium Level 3.4 MMOL/L (3.5-5.1) L Chloride Level 109 MMOL/L (98-107) H Carbon Dioxide Level 29 MMOL/L (21-32) Anion Gap 6 mmol/L (5-15) Blood Urea Nitrogen 27 mg/dL (7-18) H Creatinine 1.0 MG/DL (0.55-1.30) Estimat Glomerular Filtration Rate mL/min (>60) Glucose Level 106 MG/DL (74-106) Uric Acid 5.2 MG/DL (2.6-7.2) Calcium Level 8.8 MG/DL (8.5-10.1) Phosphorus Level 2.0 MG/DL (2.5-4.9) L Magnesium Level 2.0 MG/DL (1.8-2.4) Total Bilirubin 0.5 MG/DL (0.2-1.0) Aspartate Amino Transf (AST/SGOT) 9 U/L (15-37) L Alanine Aminotransferase (ALT/SGPT) 18 U/L (12-78) Alkaline Phosphatase 67 U/L (46-116) C-Reactive Protein, Quantitative 3.2 mg/dL (0.00-0.90) H Total Protein 6.4 G/DL (6.4-8.2) Albumin 2.6 G/DL (3.4-5.0) L Globulin 3.8 g/dL Albumin/Globulin Ratio 0.7 (1.0-2.7) L Height (Feet): 6 Height (Inches): 8.00 Weight (Pounds): 130 Medications Current Medications Medications (Trade) Dose Ordered Sig/Pablito Route PRN Reason Start Time Stop Time Status Last Admin Dose Admin Acetaminophen (Tylenol) 650 mg Q4H PRN ORAL Mild Pain (Pain Scale 1-3) 10/07/18 17:30 11/06/18 17:29 Amantadine HCl (Symmetrel) 100 mg DAILY ORAL 10/08/18 09:00 11/07/18 08:59 Carbidopa/Levodopa (Sinemet 25/100) 1 tab Q24H ORAL 10/08/18 12:00 11/07/18 11:59 Carbidopa/Levodopa (Sinemet 25/100) 2 tab 0500,0900,1500,1800 ORAL 10/08/18 05:00 11/07/18 04:59 Carbidopa/Levodopa (Sinemet CR 50/ 200) 1 tab QHS ORAL 10/07/18 21:00 11/06/18 20:59 Dextrose 1,000 ml @ 75 mls/hr [id number] IV 10/08/18 19:00 11/07/18 18:59 10/08/18 20:48 Dextrose (Dextrose 50%) 25 ml Q30M PRN IV Hypoglycemia 10/07/18 17:30 11/06/18 17:29 Dextrose (Dextrose 50%) 50 ml Q30M PRN IV Hypoglycemia 10/07/18 17:30 11/06/18 17:29 Divalproex Sodium (Depakote) 250 mg Q12HR ORAL 10/07/18 21:00 11/06/18 20:59 Docusate Sodium (Colace) 100 mg EVERY 12 HOURS ORAL 10/07/18 21:00 11/06/18 20:59 Heparin Sodium (Porcine) (Heparin 5000 units/ml) 5,000 units EVERY 12 HOURS SUBQ 10/07/18 21:00 11/06/18 20:59 10/09/18 09:01 Levofloxacin 100 ml @ 100 mls/hr DAILY IVPB 10/08/18 09:00 10/15/18 08:59 10/09/18 08:50 Lorazepam (Ativan) 0.5 mg Q6H PRN ORAL For Anxiety 10/07/18 17:30 10/14/18 17:29 Ondansetron HCl (Zofran) 4 mg Q6H PRN IVP Nausea & Vomiting 10/07/18 17:30 11/06/18 17:29 Polyethylene Glycol (Miralax) 17 gm HSPRN PRN ORAL Constipation 10/07/18 17:30 11/06/18 17:29 Potassium Phosphate 15 mm/ Sodium Chloride 280 ml @ 46.667 mls/ hr ONCE ONCE IV 10/09/18 12:00 10/09/18 17:59 Quetiapine Fumarate (SEROquel) 50 mg BEDTIME ORAL 10/07/18 21:00 11/06/18 20:59 Assessment/Plan Problem List: (1) Acute metabolic encephalopathy ICD Codes: G93.41 - Metabolic encephalopathy SNOMED: 54079837, 412908982 (2) Dementia with behavioral disturbance ICD Codes: F03.91 - Unspecified dementia with behavioral disturbance SNOMED: 3473667582522 Status: unchanged Assessment/Plan dc Seroquel dc Ativan Haldol Im as its not sedative valproic acid level Jass Olivares MD Oct 09, 2018 11:26
[2018-10-09] MEDS ORDERED: Haloperidol 5mg/ml Inj IM PRN (11:30)
[2018-10-09 12:00] VITALS: BP 125/76
[2018-10-09] MEDS ORDERED: Potassium Phosphate 15 MM in NS 275 ML IV ONE (12:00)
[2018-10-09 16:00] VITALS: BP 131/70
--- NOTE | 2018-10-09 16:46 | General Progress Note ---
Assessment/Plan Assessment/Plan #Weight loss #Poor oral intake #Failure to thrive #Severe dementia #Parkinsons Disease #Hypernatremia #SOWMYA #Dehydration -Cont inpatient care -IV hydration with D5NS -monitor BMP -Nephrology consulted -Discussed with son possibility of PEG placement, he will review advanced directives and discuss with family -Continue Sinemet -Continue amantadine -Provide supportive care -Aspiration precautions -Fall precautions -Frequent orienting #Gram negative UTI -continue Levaquin -follow up culture -Mood disorder -Bipolar depression -continue Lexapro and Depakote VTE PPx heparin SC DNR Subjective Date patient seen: Oct 09, 2018 Time patient seen: 09:45 ROS Limited/Unobtainable: No Allergies: Coded Allergies: AMOXICILLIN (Verified Allergy, Unknown, 12/31/17) Subjective No acute overnight events, no new complaints today Objective Last 24 Hour Vital Signs Date Time Temp Pulse Resp B/P (MAP) Pulse Ox O2 Delivery O2 Flow Rate FiO2 10/09/18 12:00 98.2 71 16 125/76 (92) 97 10/09/18 09:00 Nasal Cannula 2.0 10/09/18 08:00 98.1 77 17 115/80 (92) 97 10/09/18 04:00 98.1 75 16 113/79 (90) 96 10/09/18 00:00 98.8 68 16 129/73 (91) 98 10/08/18 21:00 Nasal Cannula 2.0 10/08/18 19:52 97.3 76 20 135/79 (97) 98 Intake and Output 10/08/18 10/09/18 19:00 07:00 Intake Total 562.5 ml 750 ml Output Total 400 ml Balance 162.5 ml 750 ml IV Total 562.5 ml 750 ml Output Urine Total 400 ml # Voids 2 Laboratory Tests 10/09/18 06:40: Valproic Acid (Depakene) Level < 3L 10/09/18 06:45: White Blood Count 7.9, Red Blood Count 3.50L, Hemoglobin 11.2L, Hematocrit 34.1L , Mean Corpuscular Volume 97, Mean Corpuscular Hemoglobin 32.0H, Mean Corpuscular Hemoglobin Concent 32.9, Red Cell Distribution Width 12.7, Platelet Count 236, Mean Platelet Volume 6.5, Neutrophils (%) (Auto) 64.2, Lymphocytes (% ) (Auto) 17.1L, Monocytes (%) (Auto) 13.4H, Eosinophils (%) (Auto) 4.2H, Basophils (%) (Auto) 1.1, Sodium Level 144, Potassium Level 3.4L, Chloride Level 109H, Carbon Dioxide Level 29, Anion Gap 6, Blood Urea Nitrogen 27H, Creatinine 1.0, Estimat Glomerular Filtration Rate , Glucose Level 106, Uric Acid 5.2, Calcium Level 8.8, Phosphorus Level 2.0L, Magnesium Level 2.0, Total Bilirubin 0.5, Aspartate Amino Transf (AST/SGOT) 9L, Alanine Aminotransferase ( ALT/SGPT) 18, Alkaline Phosphatase 67, C-Reactive Protein, Quantitative 3.2H, Total Protein 6.4, Albumin 2.6L, Globulin 3.8, Albumin/Globulin Ratio 0.7L Height (Feet): 6 Height (Inches): 8.00 Weight (Pounds): 130 Objective General: alert, cooperative, no distress, appears stated age Head: normocephalic, without obvious abnormality, atraumatic Eyes: conjunctivae/corneas clear. PERRL, EOM's intact Throat: lips, mucosa, and tongue normal. MMM Neck: supple, symmetrical, trachea midline, and no JVD Lungs: clear to auscultation bilaterally Heart: regular rate and rhythm, S1, S2 normal, no murmur, click, rub or gallop Abdomen: soft, non-tender, non-distended, bowel sounds normal; no masses or organomegaly Extremities: extremities normal, atraumatic, no cyanosis or edema Pulses: 2+ and symmetric Skin: skin color, texture, turgor normal; no rashes or lesions Neurologic: grossly normal, no focal deficits Regino Marion MD Oct 09, 2018 16:46
--- NOTE | 2018-10-09 17:40 | Nephrology Progress Note ---
Assessment/Plan Problem List: (1) Dehydration Assessment: hyperNatremia (2) Failure to thrive in adult (3) Acute metabolic encephalopathy (4) UTI (urinary tract infection) (5) Parkinsons disease Assessment Renal failure likely dehydration Failure to Thrive and weight loss Poor Cognition HyperNatremia, Free water deficit UTI Parkinsons Plan -IV hydration D5W -monitor Renal Parameter -PMD Discussed with son possibility of PEG placement, he will review advanced directives and discuss with family -Aspiration precautions -Fall precautions Avoid mind altering meds Subjective ROS Limited/Unobtainable: No Constitutional: Reports: malaise, weakness Objective Objective Last 24 Hour Vital Signs Date Time Temp Pulse Resp B/P (MAP) Pulse Ox O2 Delivery O2 Flow Rate FiO2 10/09/18 16:00 97.6 84 16 131/70 (90) 97 10/09/18 12:00 98.2 71 16 125/76 (92) 97 10/09/18 09:00 Nasal Cannula 2.0 10/09/18 08:00 98.1 77 17 115/80 (92) 97 10/09/18 04:00 98.1 75 16 113/79 (90) 96 10/09/18 00:00 98.8 68 16 129/73 (91) 98 10/08/18 21:00 Nasal Cannula 2.0 10/08/18 19:52 97.3 76 20 135/79 (97) 98 Intake and Output 10/08/18 10/09/18 19:00 07:00 Intake Total 562.5 ml 750 ml Output Total 400 ml Balance 162.5 ml 750 ml IV Total 562.5 ml 750 ml Output Urine Total 400 ml # Voids 2 Laboratory Tests 10/09/18 06:40: Valproic Acid (Depakene) Level < 3L 10/09/18 06:45: White Blood Count 7.9, Red Blood Count 3.50L, Hemoglobin 11.2L, Hematocrit 34.1L , Mean Corpuscular Volume 97, Mean Corpuscular Hemoglobin 32.0H, Mean Corpuscular Hemoglobin Concent 32.9, Red Cell Distribution Width 12.7, Platelet Count 236, Mean Platelet Volume 6.5, Neutrophils (%) (Auto) 64.2, Lymphocytes (% ) (Auto) 17.1L, Monocytes (%) (Auto) 13.4H, Eosinophils (%) (Auto) 4.2H, Basophils (%) (Auto) 1.1, Sodium Level 144, Potassium Level 3.4L, Chloride Level 109H, Carbon Dioxide Level 29, Anion Gap 6, Blood Urea Nitrogen 27H, Creatinine 1.0, Estimat Glomerular Filtration Rate , Glucose Level 106, Uric Acid 5.2, Calcium Level 8.8, Phosphorus Level 2.0L, Magnesium Level 2.0, Total Bilirubin 0.5, Aspartate Amino Transf (AST/SGOT) 9L, Alanine Aminotransferase ( ALT/SGPT) 18, Alkaline Phosphatase 67, C-Reactive Protein, Quantitative 3.2H, Total Protein 6.4, Albumin 2.6L, Globulin 3.8, Albumin/Globulin Ratio 0.7L Height (Feet): 6 Height (Inches): 8.00 Weight (Pounds): 130 General Appearance: no apparent distress, lethargic, confused Cardiovascular: normal rate Respiratory/Chest: decreased breath sounds Abdomen: distended Neurologic: other - tremors Arnaldo Maciel MD Oct 09, 2018 17:40
--- NOTE | 2018-10-09 18:00 | NUR ---
NURSE NOTES: Patient refused to have dinner Rn encouraged patient but she does not follow direction and does not want to swallow food. Will continue to monitor.
--- NOTE | 2018-10-09 19:30 | NUR ---
HAND-OFF: Report given to Solitario MARTINEZ.
--- NOTE | 2018-10-09 19:32 | NUR ---
NURSE NOTES: Patient in bed, awake, unable to make needs known. Confused. Skin is warm and dry. NOted with multiple dressings on pressure areas. special mattress in place but it keeps deflating. Central was notified, still not fixed. Bed in low and locked position. Provided safe environment. Nasal cannula 2 L. No s/s of pain or discomfort noted. Will do frequent visual checks. Call light is at bedside. Will continue plan of care.
[2018-10-09 20:00] VITALS: BP 138/80
[2018-10-09] MEDS: Levodopa/Carbidopa CR 50/200 tab ORAL SCH (20:35)
[2018-10-10] VITALS: BP 141/87
[2018-10-10 04:00] VITALS: BP 135/87
[2018-10-10] MEDS: Levodopa/Carbidopa 25/100 tab ORAL SCH ×6 (05:00→20:36)
--- NOTE | 2018-10-10 05:56 | NUR ---
NURSE NOTES: Attempted to have patient swallow apple sauce, patient not following commands. Patient is confused.
--- NOTE | 2018-10-10 07:19 | NUR ---
HAND-OFF: Report given to MICHELLE Posada.
--- NOTE | 2018-10-10 07:25 | NUR ---
NURSE NOTES: Received patient in bed, patient is awake. patient knows her name but confused. No s/s of pain per FLACC pain scale. Breathing is even and unlabored with oxygen. IV intact, no s/s of infiltration and IVF running. Bed is in lowest position and locked. Encouraged patient to eat but she just looks @ RN and does not follow commands. Mouth care done.Call light within reach. Will continue plan of care.
[2018-10-10 08:00] VITALS: BP 116/76
[2018-10-10] MEDS: Docusate 100mg cap ORAL SCH ×2 (09:00→20:35)
[2018-10-10] MEDS: Amantadine 100mg cap ORAL SCH (09:00)
[2018-10-10] MEDS: Heparin 5000 units/ml inj SUBQ SCH ×2 (09:14→20:35)
--- NOTE | 2018-10-10 11:30 | NUR ---
RD ASSESSMENT & RECOMMENDATIONS SEE CARE ACTIVITY FOR COMPLETE ASSESSMENT DAILY ESTIMATED NEEDS: Needs based on Weight loss, underweight, mild to moderate wasting 53.6kg 30-35 kcals/kg 7288-7451 total kcals 1-1.5 g protein/kg 54-80 g total protein 25-30 mL/kg 8733-0164 total fluid mLs NUTRITION DIAGNOSIS: 1) Inadequate oral intake r/t dysphagia, dementia, FTT as evidenced by pt adm w/ decreased oral intake, 14# wt loss (11% severe wt change) x4 weeks. 2) Swallowing difficulty r/t dysphagia as evidenced by CATALOGUE ILLUSTRATOR eval w/ recs for liquify puree NTL diet, w/ poor po intake. CURRENT DIET: REGULAR LIQUIFY PUREE W/ NTL PO DIET RECOMMENDATIONS: LIBERALIZED REGULAR DIET (texture per CATALOGUE ILLUSTRATOR) ENTERAL NUTRITION RECOMMENDATIONS: Jevity 1.2 @60ml/hr x24 hrs to provide 1440ml, 1728 kcal, 80g prot, 1162ml free H2O - If part of POC, rec to obtain GI access, initiate TF @20ml for 8 hrs - Advance SLOWLY 10ml/hr q6 hrs to goal of 60ml/hr x24 hrs - Flush per MD. HOB over 30 degrees ADDITIONAL RECOMMENDATIONS: 1) TXR PT TO BED W/ FUNCTIONING SCALE -> WEEKLY WTS/ PT ADM W/ SEVERE WT LOSS 2) ADD ENSURE TID W/ ORAL DIET 3) MONITOR LYTES, REPLETE NEEDED 4) Add SEEMA BID for skin integrity 5) TF RECS ABOVE IF PART OF POC 48 hr calorie count: 2/6 menus tickets available, 0% intake for both. Per fraud examiner, intake is: 0%, refusal, refusal, refusal. Pt is not meeting est caloric and protein needs.
[2018-10-10 12:00] VITALS: BP 113/72
--- NOTE | 2018-10-10 12:55 | General Progress Note ---
Assessment/Plan Assessment/Plan #Weight loss #Poor oral intake #Failure to thrive #Severe dementia #Parkinsons Disease #Hypernatremia #SOWMYA #Dehydration -Cont inpatient care -IV hydration with D5NS -monitor BMP -Nephrology consulted -Discussed with son possibility of PEG placement, he will review advanced directives and discuss with family -Continue Sinemet -Continue amantadine -Provide supportive care -Aspiration precautions -Fall precautions -Frequent orienting #Gram negative UTI -continue Levaquin -follow up culture -Mood disorder -Bipolar depression -continue Lexapro and Depakote VTE PPx heparin SC DNR Subjective Date patient seen: Oct 10, 2018 Time patient seen: 12:54 ROS Limited/Unobtainable: No Allergies: Coded Allergies: AMOXICILLIN (Verified Allergy, Unknown, 12/31/17) Subjective No acute overnight events, no new complaints today Objective Last 24 Hour Vital Signs Date Time Temp Pulse Resp B/P (MAP) Pulse Ox O2 Delivery O2 Flow Rate FiO2 10/10/18 12:00 97.2 78 16 113/72 (86) 96 10/10/18 09:00 Nasal Cannula 2.0 10/10/18 08:00 98.3 78 17 116/76 (89) 97 10/10/18 04:00 97.9 71 19 135/87 (103) 93 10/10/18 00:00 97.9 72 18 141/87 (105) 95 10/09/18 20:53 Nasal Cannula 2.0 10/09/18 20:00 98.2 72 18 138/80 (99) 94 10/09/18 16:00 97.6 84 16 131/70 (90) 97 Intake and Output 10/09/18 10/10/18 19:00 07:00 Intake Total 445 ml 600 ml Output Total 250 ml Balance 445 ml 350 ml Intake Oral 120 ml IV Total 325 ml 600 ml Output Urine Total 250 ml # Voids 5 Height (Feet): 6 Height (Inches): 8.00 Weight (Pounds): 130 Objective General: alert, cooperative, no distress, appears stated age Head: normocephalic, without obvious abnormality, atraumatic Eyes: conjunctivae/corneas clear. PERRL, EOM's intact Throat: lips, mucosa, and tongue normal. MMM Neck: supple, symmetrical, trachea midline, and no JVD Lungs: clear to auscultation bilaterally Heart: regular rate and rhythm, S1, S2 normal, no murmur, click, rub or gallop Abdomen: soft, non-tender, non-distended, bowel sounds normal; no masses or organomegaly Extremities: extremities normal, atraumatic, no cyanosis or edema Pulses: 2+ and symmetric Skin: skin color, texture, turgor normal; no rashes or lesions Neurologic: grossly normal, no focal deficits Regino Marion MD Oct 10, 2018 12:55
--- NOTE | 2018-10-10 15:56 | Nephrology Progress Note ---
Assessment/Plan Problem List: (1) Dehydration Assessment: hyperNatremia (2) Failure to thrive in adult (3) Acute metabolic encephalopathy (4) UTI (urinary tract infection) (5) Parkinsons disease Assessment Renal failure likely dehydration Failure to Thrive and weight loss Poor Cognition HyperNatremia, Free water deficit UTI Parkinsons Plan -IV hydration D5W -monitor Renal Parameter -PMD Discussed with son possibility of PEG placement, he will review advanced directives and discuss with family -Aspiration precautions -Fall precautions Avoid mind altering meds Subjective ROS Limited/Unobtainable: No Constitutional: Reports: malaise, weakness Objective Objective Last 24 Hour Vital Signs Date Time Temp Pulse Resp B/P (MAP) Pulse Ox O2 Delivery O2 Flow Rate FiO2 10/10/18 12:00 97.2 78 16 113/72 (86) 96 10/10/18 09:00 Nasal Cannula 2.0 10/10/18 08:00 98.3 78 17 116/76 (89) 97 10/10/18 04:00 97.9 71 19 135/87 (103) 93 10/10/18 00:00 97.9 72 18 141/87 (105) 95 10/09/18 20:53 Nasal Cannula 2.0 10/09/18 20:00 98.2 72 18 138/80 (99) 94 10/09/18 16:00 97.6 84 16 131/70 (90) 97 Intake and Output 10/09/18 10/10/18 19:00 07:00 Intake Total 445 ml 650 ml Output Total 250 ml Balance 445 ml 400 ml Intake Oral 120 ml IV Total 325 ml 650 ml Output Urine Total 250 ml # Voids 5 Height (Feet): 6 Height (Inches): 8.00 Weight (Pounds): 130 General Appearance: no apparent distress Neck: limited range of motion Cardiovascular: normal rate Respiratory/Chest: decreased breath sounds Abdomen: soft Neurologic: other - tremors Arnaldo Maciel MD Oct 10, 2018 15:56
[2018-10-10 16:00] VITALS: BP 118/77
--- NOTE | 2018-10-10 17:41 | NUR ---
NURSE NOTES: Unable to administer sinemet due to patient unable to tolerate with her food and med. V/S stable. Opens her eyes spontaneously but she does not follow directions and she packs her food.Will continue to monitor.
--- NOTE | 2018-10-10 19:18 | NUR ---
HAND-OFF: Report given to
--- NOTE | 2018-10-10 19:40 | NUR ---
NURSE NOTES: Patient in bed, awake, unable to make needs known. Respiration is even, nasal cannula 2 L noted. Abdomen is soft and non distended. IV site noted, iv fluid is infusing. No s/s of pain or discomfort noted. Skin is warm, intact. Patient is on special mattress. Call light is at bedside. Will continue plan of care.
[2018-10-10 20:00] VITALS: BP 137/70
[2018-10-10] MEDS: Levodopa/Carbidopa CR 50/200 tab ORAL SCH (20:35)
[2018-10-11] VITALS: BP 129/69
[2018-10-11 04:00] VITALS: BP 135/77
--- NOTE | 2018-10-11 07:25 | NUR ---
HAND-OFF: Report given to Sierra Combs.
--- NOTE | 2018-10-11 07:30 | NUR ---
NURSE NOTES: Received pt from MICHELLE CRESPO. Pt is confused and orient x1. pt has NC 2LMP. pt has intact iv access LFA 22G is running well. all needs attended, bed is locked and is in the lowest position. call light within easy reach. will continue to monitor.
[2018-10-11 08:00] VITALS: BP 134/88
[2018-10-11] MEDS: Heparin 5000 units/ml inj SUBQ SCH ×2 (08:38→21:18)
[2018-10-11] MEDS: Amantadine 100mg cap ORAL SCH (09:00)
[2018-10-11] MEDS: Levodopa/Carbidopa 25/100 tab ORAL SCH ×4 (09:00→18:00)
[2018-10-11] MEDS: Docusate 100mg cap ORAL SCH ×2 (09:00→21:00)
--- NOTE | 2018-10-11 09:49 | NUR ---
NURSE NOTES: pt doesn't swallow any thing and keeps the food in the mouth. all oral meds not given. Dr dean is aware.
--- NOTE | 2018-10-11 10:16 | NUR ---
NURSE NOTES: Dr christofer sen visited pt and she is aware pt doesn't swallow foods and didn't dive any po meds and Dr aware regarding K and other lab results, all orders noted and carried out. will continue to monitor.
[2018-10-11 12:00] VITALS: BP 131/79
--- NOTE | 2018-10-11 12:25 | General Progress Note ---
Assessment/Plan Problem List: (1) Acute metabolic encephalopathy ICD Codes: G93.41 - Metabolic encephalopathy SNOMED: 70545040, 536476926 (2) Dementia with behavioral disturbance ICD Codes: F03.91 - Unspecified dementia with behavioral disturbance SNOMED: 8618915332825 Assessment/Plan dc Seroquel dc Ativan Haldol Im as its not sedative valproic acid level low the pt lacks capacity to make decisions dw pts son Subjective Neurologic/Psychiatric: Reports: anxiety, depressed Allergies: Coded Allergies: AMOXICILLIN (Verified Allergy, Unknown, 12/31/17) Subjective the pt is unable to be engaged and answer the questions the pt doesnt swallow the meds nor water hold the meds and water in mouth Objective Last 24 Hour Vital Signs Date Time Temp Pulse Resp B/P (MAP) Pulse Ox O2 Delivery O2 Flow Rate FiO2 10/11/18 09:00 Nasal Cannula 2.0 10/11/18 08:00 98.4 72 18 134/88 (103) 96 10/11/18 04:00 98.6 77 18 135/77 (96) 95 10/11/18 00:00 98.6 91 20 129/69 (89) 93 10/10/18 21:00 Nasal Cannula 2.0 10/10/18 20:00 98.8 93 18 137/70 (92) 95 10/10/18 16:00 97.6 82 17 118/77 (91) 97 Intake and Output 10/10/18 10/11/18 18:59 06:59 Intake Total 600 ml 300 ml Balance 600 ml 300 ml IV Total 600 ml 300 ml # Voids 4 Height (Feet): 6 Height (Inches): 8.00 Weight (Pounds): 130 General Appearance: no apparent distress, alert - more alert, confused, cachetic Jass Olivares MD Oct 11, 2018 12:25
[2018-10-11 16:00] VITALS: BP 130/82
--- NOTE | 2018-10-11 16:02 | Nephrology Progress Note ---
Assessment/Plan Problem List: (1) Dehydration Assessment: hyperNatremia (2) Failure to thrive in adult (3) Acute metabolic encephalopathy (4) UTI (urinary tract infection) (5) Parkinsons disease Assessment Renal failure likely dehydration Failure to Thrive and weight loss Poor Cognition HyperNatremia, Free water deficit UTI Parkinsons Plan no labs today -IV hydration D5W -monitor Renal Parameter -PMD Discussed with son possibility of PEG placement, he will review advanced directives and discuss with family -Aspiration precautions -Fall precautions Avoid mind altering meds Subjective ROS Limited/Unobtainable: No Constitutional: Reports: malaise, weakness Objective Objective Last 24 Hour Vital Signs Date Time Temp Pulse Resp B/P (MAP) Pulse Ox O2 Delivery O2 Flow Rate FiO2 10/11/18 12:00 97.8 76 18 131/79 (96) 96 10/11/18 09:00 Nasal Cannula 2.0 10/11/18 08:00 98.4 72 18 134/88 (103) 96 10/11/18 04:00 98.6 77 18 135/77 (96) 95 10/11/18 00:00 98.6 91 20 129/69 (89) 93 10/10/18 21:00 Nasal Cannula 2.0 10/10/18 20:00 98.8 93 18 137/70 (92) 95 10/10/18 16:00 97.6 82 17 118/77 (91) 97 Intake and Output 10/10/18 10/11/18 19:00 07:00 Intake Total 600 ml 250 ml Balance 600 ml 250 ml IV Total 600 ml 250 ml # Voids 4 Height (Feet): 6 Height (Inches): 8.00 Weight (Pounds): 130 General Appearance: no apparent distress, lethargic Neck: limited range of motion Cardiovascular: normal rate Respiratory/Chest: decreased breath sounds Abdomen: soft, distended Objective no change Arnaldo Maciel MD Oct 11, 2018 16:02
--- NOTE | 2018-10-11 16:46 | NUR ---
NURSE NOTES: pt's son called and asked to speak with Dr KENNY. Dr KENNY is aware.
--- NOTE | 2018-10-11 19:45 | NUR ---
NURSE NOTES: Received patient in bed, confused, disoriented, unable to swallow medications, or follow commands, MD is aware. Awaiting for family to sign consent for GTube placement. Call light is within reach, bed is in low position, locked and alarm is on. Will continue to monitor for safety and comfort.
--- NOTE | 2018-10-11 19:52 | NUR ---
HAND-OFF: Report given to MICHELLE LAWSON.
--- NOTE | 2018-10-11 19:59 | General Progress Note ---
Assessment/Plan Assessment/Plan #Weight loss #Poor oral intake #Failure to thrive #Severe dementia #Parkinsons Disease #Hypernatremia #SOWMYA #Dehydration -Cont inpatient care -IV hydration with D5NS -monitor BMP -Nephrology consult appreciated -Continue Sinemet -Continue amantadine -Provide supportive care -Aspiration precautions -Fall precautions -Frequent orienting -Discussed with son regarding PEG, stated that pt did not want, would like to transition to comfort care. -will discuss with CM in AM regarding hospice #Gram negative UTI -continue Levaquin -follow up culture -Mood disorder -Bipolar depression -continue Lexapro and Depakote -appreciate psych consult VTE PPx heparin SC DNR Subjective Date patient seen: Oct 11, 2018 Allergies: Coded Allergies: AMOXICILLIN (Verified Allergy, Unknown, 12/31/17) Subjective No acute overnight events, no complaints Objective Last 24 Hour Vital Signs Date Time Temp Pulse Resp B/P (MAP) Pulse Ox O2 Delivery O2 Flow Rate FiO2 10/11/18 16:00 97.9 70 18 130/82 (98) 96 10/11/18 12:00 97.8 76 18 131/79 (96) 96 10/11/18 09:00 Nasal Cannula 2.0 10/11/18 08:00 98.4 72 18 134/88 (103) 96 10/11/18 04:00 98.6 77 18 135/77 (96) 95 10/11/18 00:00 98.6 91 20 129/69 (89) 93 10/10/18 21:00 Nasal Cannula 2.0 10/10/18 20:00 98.8 93 18 137/70 (92) 95 Intake and Output 10/10/18 10/11/18 19:00 07:00 Intake Total 600 ml 250 ml Balance 600 ml 250 ml IV Total 600 ml 250 ml # Voids 4 Laboratory Tests 10/11/18 17:30: C-Reactive Protein, Quantitative 2.1H Height (Feet): 6 Height (Inches): 8.00 Weight (Pounds): 130 Objective General: opens eyes to verbal stimuli, noncooperative, no distress, appears stated age Head: normocephalic, without obvious abnormality, atraumatic Eyes: conjunctivae/corneas clear. PERRL, EOM's intact Throat: lips, mucosa, and tongue normal. MMM Neck: supple, symmetrical, trachea midline, and no JVD Lungs: clear to auscultation bilaterally Heart: regular rate and rhythm, S1, S2 normal, no murmur, click, rub or gallop Abdomen: soft, non-tender, non-distended, bowel sounds normal; no masses or organomegaly Extremities: extremities normal, atraumatic, no cyanosis or edema Pulses: 2+ and symmetric Skin: skin color, texture, turgor normal; no rashes or lesions Neurologic: grossly normal, no focal deficits Dara Fernández MD Oct 11, 2018 19:59
[2018-10-11 20:00] VITALS: BP 96/58
[2018-10-11] MEDS: Levodopa/Carbidopa CR 50/200 tab ORAL SCH (21:00)
[2018-10-12] VITALS: BP 101/60
[2018-10-12 04:00] VITALS: BP 109/66
[2018-10-12] MEDS: Levodopa/Carbidopa 25/100 tab ORAL SCH ×5 (04:26→18:00)
[2018-10-12 07:03] LABS: BASOPHILS % (AUTO) 0.8 % (0.0-2.0); EOSINOPHILS % (AUTO) 2.5 % (0.0-3.0); HEMATOCRIT 35.3 % (37.0-47.0); HEMOGLOBIN 11.8 G/DL (12.0-16.0); LYMPHOCYTES % (AUTO) 14.1 % (20.0-45.0); MEAN CORPUSCULAR VOLUME 95 FL (80-99); MONOCYTES % (AUTO) 15.2 % (1.0-10.0); NEUTROPHILS % (AUTO) 67.4 % (45.0-75.0); PLATELET COUNT 267 K/UL (150-450); RED CELL DISTRIBUTION WIDTH 11.8 % (11.6-14.8); WHITE BLOOD COUNT 9.5 K/UL (4.8-10.8)
[2018-10-12 07:09] LABS: ALANINE AMINOTRANSFERASE 43 U/L (12-78); ALBUMIN 2.6 G/DL (3.4-5.0); ALBUMIN/GLOBULIN RATIO 0.7 (1.0-2.7); ALKALINE PHOSPHATASE 77 U/L (46-116); ANION GAP 10 mmol/L (5-15); ASPARTATE AMINO TRANSFERASE 46 U/L (15-37); BILIRUBIN,TOTAL 0.6 MG/DL (0.2-1.0); BLOOD UREA NITROGEN 18 mg/dL (7-18); CALCIUM 8.7 MG/DL (8.5-10.1); CARBON DIOXIDE 25 MMOL/L (21-32); CHLORIDE 102 MMOL/L (98-107); CREATININE 0.9 MG/DL (0.55-1.30); PHOSPHORUS 2.6 MG/DL (2.5-4.9); POTASSIUM 3.5 MMOL/L (3.5-5.1); SODIUM 136 MMOL/L (136-145)
--- NOTE | 2018-10-12 07:16 | NUR ---
HAND-OFF: Report given to Garret MARTINEZ.
--- NOTE | 2018-10-12 07:28 | NUR ---
NURSE NOTES: Received pt from MICHELLE LAWSON. Pt is confused orient x1. pt has NC 2LMP. pt has intact iv access LFA 22G is running well. all needs attended, bed is locked and in the lowest position. call light within easy reach. will continue to monitor.
[2018-10-12 08:00] VITALS: BP 127/68
[2018-10-12] MEDS: Heparin 5000 units/ml inj SUBQ SCH ×2 (08:40→20:38)
[2018-10-12] MEDS: Amantadine 100mg cap ORAL SCH (09:00)
[2018-10-12] MEDS: Docusate 100mg cap ORAL SCH ×2 (09:00→20:31)
--- NOTE | 2018-10-12 09:01 | NUR ---
NURSE NOTES: pt keeps water in the mouth and doesn't swallow at all. no Po medication given. Dr KENNY is aware.
--- NOTE | 2018-10-12 11:33 | NUR ---
ST NOTE: SWALLOW/SPEECH/COGNITION STATUS: FOLLOWED UP PT'S CONDITIONS. PER RN, PT WAS UNABLE TO SWALLOW. PT SEEN AT BEDSIDE IN LATE AM. ALERT, MUMBLING. JAW WAS WILD OPEN. COMPLETED ORAL CARE WITH OROPHARYNGEAL SUCTION. AFTER ORAL CARE, PT SLOWLY CLOSED HER MOUTH INVOLUNTARILY, AND DRY SWALLOW RESPONSE WAS NOTED. ATTEMPTED TO GIVE PO TRIAL(COLD NECTAR THICK VIA TSP X 3), POOR ORAL SENSATION, MINIMAL TONGUE MOVEMENT, PT DID NOT PUSH THE BOLUS POSTERIORLY, AND REQUIRED ORAL SUCTION. PT DEMONSTRATED DRY SWALLOW RESPONSE AFTER ORAL SUCTION. WORSENED OROPHARYNGEAL DYSPHAGIA KEEP PT NPO FOR NOW. DISCUSSED WITH CELIA SAINI RE:PT'S CONDITIONS AND PT'S FAMILY WISH(NO TUBE FEEDING) CONSIDER HOSPICE CARE. D/W RN AND THE STAFF.
--- NOTE | 2018-10-12 11:54 | General Progress Note ---
Assessment/Plan Problem List: (1) Acute metabolic encephalopathy ICD Codes: G93.41 - Metabolic encephalopathy SNOMED: 86085523, 409100115 (2) Dementia with behavioral disturbance ICD Codes: F03.91 - Unspecified dementia with behavioral disturbance SNOMED: 9020583438861 Status: stable, progressing, unchanged Assessment/Plan Haldol Im as its not sedative valproic acid level low the pt lacks capacity to make decisions dw pts son Subjective Allergies: Coded Allergies: AMOXICILLIN (Verified Allergy, Unknown, 12/31/17) Subjective the pt is unchanged/the pt is not eating the pt is unable to be engaged and answer the questions the pt doesn't swallow the meds nor water Objective Last 24 Hour Vital Signs Date Time Temp Pulse Resp B/P (MAP) Pulse Ox O2 Delivery O2 Flow Rate FiO2 10/12/18 09:00 Nasal Cannula 2.0 10/12/18 08:00 98.0 80 16 127/68 (87) 95 10/12/18 04:00 98.9 80 18 109/66 (80) 10/12/18 00:00 98.3 88 17 101/60 (74) 10/11/18 21:00 Nasal Cannula 2.0 10/11/18 20:00 99.1 82 19 96/58 (71) 10/11/18 16:00 97.9 70 18 130/82 (98) 96 10/11/18 12:00 97.8 76 18 131/79 (96) 96 Intake and Output 10/11/18 10/12/18 19:00 07:00 Intake Total 850 ml 920 ml Output Total 252 ml Balance 850 ml 668 ml Intake Oral 120 ml IV Total 850 ml Other 800 ml Output Urine Total 250 ml Stool Total 2 ml # Voids 3 3 # Bowel Movements 2 1 Laboratory Tests 10/11/18 17:30: C-Reactive Protein, Quantitative 2.1H 10/12/18 05:20: White Blood Count 9.5, Red Blood Count 3.70L, Hemoglobin 11.8L, Hematocrit 35.3L , Mean Corpuscular Volume 95, Mean Corpuscular Hemoglobin 31.8H, Mean Corpuscular Hemoglobin Concent 33.4, Red Cell Distribution Width 11.8, Platelet Count 267, Mean Platelet Volume 6.1L, Neutrophils (%) (Auto) 67.4, Lymphocytes ( %) (Auto) 14.1L, Monocytes (%) (Auto) 15.2H, Eosinophils (%) (Auto) 2.5, Basophils (%) (Auto) 0.8, Sodium Level 136, Potassium Level 3.5, Chloride Level 102, Carbon Dioxide Level 25, Anion Gap 10, Blood Urea Nitrogen 18, Creatinine 0.9, Estimat Glomerular Filtration Rate , Glucose Level 104, Calcium Level 8.7, Phosphorus Level 2.6, Magnesium Level 1.5L, Total Bilirubin 0.6, Aspartate Amino Transf (AST/SGOT) 46H, Alanine Aminotransferase (ALT/SGPT) 43, Alkaline Phosphatase 77, Pro-B-Type Natriuretic Peptide 217H, Total Protein 6.2L, Albumin 2.6L, Globulin 3.6, Albumin/Globulin Ratio 0.7L Height (Feet): 6 Height (Inches): 8.00 Weight (Pounds): 130 General Appearance: WD/WN, no apparent distress, alert Neurologic: disoriented, depressed affect Jass Olivares MD Oct 12, 2018 11:54
[2018-10-12 12:00] VITALS: BP 104/69
--- NOTE | 2018-10-12 12:32 | Nephrology Progress Note ---
Assessment/Plan Problem List: (1) Dehydration Assessment: hyperNatremia (2) Failure to thrive in adult (3) Acute metabolic encephalopathy (4) UTI (urinary tract infection) (5) Parkinsons disease Assessment Renal failure likely dehydration Failure to Thrive and weight loss Poor Cognition HyperNatremia, Free water deficit UTI Parkinsons Plan -IV hydration D5W -monitor Renal Parameter -PMD Discussed with son possibility of PEG placement, he will review advanced directives and discuss with family -Aspiration precautions -Fall precautions Avoid mind altering meds Subjective ROS Limited/Unobtainable: No Constitutional: Reports: malaise, weakness Objective Objective Last 24 Hour Vital Signs Date Time Temp Pulse Resp B/P (MAP) Pulse Ox O2 Delivery O2 Flow Rate FiO2 10/12/18 09:00 Nasal Cannula 2.0 10/12/18 08:00 98.0 80 16 127/68 (87) 95 10/12/18 04:00 98.9 80 18 109/66 (80) 10/12/18 00:00 98.3 88 17 101/60 (74) 10/11/18 21:00 Nasal Cannula 2.0 10/11/18 20:00 99.1 82 19 96/58 (71) 10/11/18 16:00 97.9 70 18 130/82 (98) 96 Intake and Output 10/11/18 10/12/18 18:59 06:59 Intake Total 850 ml 920 ml Output Total 252 ml Balance 850 ml 668 ml Intake Oral 120 ml IV Total 850 ml Other 800 ml Output Urine Total 250 ml Stool Total 2 ml # Voids 3 3 # Bowel Movements 2 1 Laboratory Tests 10/11/18 17:30: C-Reactive Protein, Quantitative 2.1H 10/12/18 05:20: White Blood Count 9.5, Red Blood Count 3.70L, Hemoglobin 11.8L, Hematocrit 35.3L , Mean Corpuscular Volume 95, Mean Corpuscular Hemoglobin 31.8H, Mean Corpuscular Hemoglobin Concent 33.4, Red Cell Distribution Width 11.8, Platelet Count 267, Mean Platelet Volume 6.1L, Neutrophils (%) (Auto) 67.4, Lymphocytes ( %) (Auto) 14.1L, Monocytes (%) (Auto) 15.2H, Eosinophils (%) (Auto) 2.5, Basophils (%) (Auto) 0.8, Sodium Level 136, Potassium Level 3.5, Chloride Level 102, Carbon Dioxide Level 25, Anion Gap 10, Blood Urea Nitrogen 18, Creatinine 0.9, Estimat Glomerular Filtration Rate , Glucose Level 104, Calcium Level 8.7, Phosphorus Level 2.6, Magnesium Level 1.5L, Total Bilirubin 0.6, Aspartate Amino Transf (AST/SGOT) 46H, Alanine Aminotransferase (ALT/SGPT) 43, Alkaline Phosphatase 77, Pro-B-Type Natriuretic Peptide 217H, Total Protein 6.2L, Albumin 2.6L, Globulin 3.6, Albumin/Globulin Ratio 0.7L Height (Feet): 6 Height (Inches): 8.00 Weight (Pounds): 130 EENT: other - mouth breathing Neck: limited range of motion Respiratory/Chest: decreased breath sounds Abdomen: soft Objective no change Arnaldo Maciel MD Oct 12, 2018 12:32
[2018-10-12 16:00] VITALS: BP 92/61
--- NOTE | 2018-10-12 16:56 | General Progress Note ---
Assessment/Plan Assessment/Plan #Weight loss #Poor oral intake #Failure to thrive #Severe dementia #Parkinsons Disease #Hypernatremia #SOWMYA #Dehydration -Cont inpatient care -IV hydration with D5NS -monitor BMP -Nephrology consult appreciated -Continue Sinemet -Continue amantadine -Provide supportive care -Aspiration precautions -Fall precautions -Frequent orienting -Discussed with son regarding PEG, stated that pt did not want, would like to transition to comfort care, however wants to discuss with sister. -discussed with CM regarding hospice, will check pts insurance and give options #Gram negative UTI -continue Levaquin -follow up culture -Mood disorder -Bipolar depression -continue Lexapro and Depakote -appreciate psych consult VTE PPx heparin SC DNR Subjective Allergies: Coded Allergies: AMOXICILLIN (Verified Allergy, Unknown, 12/31/17) Subjective No acute overnight events, no complaints Objective Last 24 Hour Vital Signs Date Time Temp Pulse Resp B/P (MAP) Pulse Ox O2 Delivery O2 Flow Rate FiO2 10/12/18 16:00 99.1 80 18 92/61 (71) 95 10/12/18 12:00 98.2 81 16 104/69 (81) 94 10/12/18 09:00 Nasal Cannula 2.0 10/12/18 08:00 98.0 80 16 127/68 (87) 95 10/12/18 04:00 98.9 80 18 109/66 (80) 10/12/18 00:00 98.3 88 17 101/60 (74) 10/11/18 21:00 Nasal Cannula 2.0 10/11/18 20:00 99.1 82 19 96/58 (71) Intake and Output 10/11/18 10/12/18 18:59 06:59 Intake Total 850 ml 920 ml Output Total 252 ml Balance 850 ml 668 ml Intake Oral 120 ml IV Total 850 ml Other 800 ml Output Urine Total 250 ml Stool Total 2 ml # Voids 3 3 # Bowel Movements 2 1 Laboratory Tests 10/11/18 17:30: C-Reactive Protein, Quantitative 2.1H 10/12/18 05:20: White Blood Count 9.5, Red Blood Count 3.70L, Hemoglobin 11.8L, Hematocrit 35.3L , Mean Corpuscular Volume 95, Mean Corpuscular Hemoglobin 31.8H, Mean Corpuscular Hemoglobin Concent 33.4, Red Cell Distribution Width 11.8, Platelet Count 267, Mean Platelet Volume 6.1L, Neutrophils (%) (Auto) 67.4, Lymphocytes ( %) (Auto) 14.1L, Monocytes (%) (Auto) 15.2H, Eosinophils (%) (Auto) 2.5, Basophils (%) (Auto) 0.8, Sodium Level 136, Potassium Level 3.5, Chloride Level 102, Carbon Dioxide Level 25, Anion Gap 10, Blood Urea Nitrogen 18, Creatinine 0.9, Estimat Glomerular Filtration Rate , Glucose Level 104, Calcium Level 8.7, Phosphorus Level 2.6, Magnesium Level 1.5L, Total Bilirubin 0.6, Aspartate Amino Transf (AST/SGOT) 46H, Alanine Aminotransferase (ALT/SGPT) 43, Alkaline Phosphatase 77, Pro-B-Type Natriuretic Peptide 217H, Total Protein 6.2L, Albumin 2.6L, Globulin 3.6, Albumin/Globulin Ratio 0.7L Height (Feet): 6 Height (Inches): 8.00 Weight (Pounds): 130 Objective General: opens eyes to verbal stimuli, noncooperative, no distress, appears stated age Head: normocephalic, without obvious abnormality, atraumatic Eyes: conjunctivae/corneas clear. PERRL, EOM's intact Throat: lips, mucosa, and tongue normal. MMM Neck: supple, symmetrical, trachea midline, and no JVD Lungs: clear to auscultation bilaterally Heart: regular rate and rhythm, S1, S2 normal, no murmur, click, rub or gallop Abdomen: soft, non-tender, non-distended, bowel sounds normal; no masses or organomegaly Extremities: extremities normal, atraumatic, no cyanosis or edema Pulses: 2+ and symmetric Skin: skin color, texture, turgor normal; no rashes or lesions Neurologic: grossly normal, no focal deficits Dara Fernández MD Oct 12, 2018 16:56
--- NOTE | 2018-10-12 18:32 | NUR ---
NURSE NOTES: oral care and face care done and pt tolerate well. will continue to monitor.
--- NOTE | 2018-10-12 19:16 | NUR ---
HAND-OFF: Report given to MICHELLE LAWSON.
--- NOTE | 2018-10-12 19:20 | NUR ---
NURSE NOTES: Received patient in bed, patient is confused and disoriented, diet is NPO, patient is unable to swallow food/pills. No acute distress at this time, call light is within reach, bed is in low position, locked and alarm is on. Will continue to monitor for safety and comfort.
[2018-10-12 20:00] VITALS: BP 127/71
[2018-10-12] MEDS: Levodopa/Carbidopa CR 50/200 tab ORAL SCH (20:32)
[2018-10-13 00:55] VITALS: BP 122/63
[2018-10-13 04:00] VITALS: BP 119/69
[2018-10-13] MEDS: Levodopa/Carbidopa 25/100 tab ORAL SCH ×5 (05:00→17:02)
--- NOTE | 2018-10-13 07:24 | NUR ---
HAND-OFF: Report given to Swetha MARTINEZ.
--- NOTE | 2018-10-13 07:40 | NUR ---
NURSE NOTES: Received patient in bed, non-verbal does not open her eyes to name or shaking but V/S stable. IV intact, patient is on NPO, on oxygen @2L/min via NC. On p200 mattress and heels are floated to off the load. HOB elevated, oral care done. Will continue plan of care.
[2018-10-13 08:00] VITALS: BP 120/77
[2018-10-13] MEDS: Docusate 100mg cap ORAL SCH ×2 (08:31→21:00)
[2018-10-13] MEDS: Amantadine 100mg cap ORAL SCH (08:31)
[2018-10-13] MEDS: Heparin 5000 units/ml inj SUBQ SCH ×2 (09:21→22:09)
--- NOTE | 2018-10-13 10:00 | NUR ---
NURSE NOTES: Patient's breathing is labored with respiration of 12 and o2sat 97% with oxygen.BP stable. Patient was seen by Dr. Fernández with no new order. Will continue to monitor.
[2018-10-13 12:00] VITALS: BP 133/63
--- NOTE | 2018-10-13 12:04 | General Progress Note ---
Assessment/Plan Problem List: (1) Acute metabolic encephalopathy ICD Codes: G93.41 - Metabolic encephalopathy SNOMED: 03728149, 674790207 (2) Dementia with behavioral disturbance ICD Codes: F03.91 - Unspecified dementia with behavioral disturbance SNOMED: 2671272592912 Status: unchanged Assessment/Plan Haldol Im as its not sedative valproic acid level low the pt lacks capacity to make decisions dw pts son rec palliative care. Subjective Neurologic/Psychiatric: Reports: anxiety, depressed, emotional problems Allergies: Coded Allergies: AMOXICILLIN (Verified Allergy, Unknown, 12/31/17) Subjective the pt is the same and is agitated at times the pt is not eating and the family refused GT Objective Last 24 Hour Vital Signs Date Time Temp Pulse Resp B/P (MAP) Pulse Ox O2 Delivery O2 Flow Rate FiO2 10/13/18 09:00 Nasal Cannula 2.0 10/13/18 08:00 97.2 75 12 120/77 (91) 95 10/13/18 04:00 97.6 76 18 119/69 (86) 10/13/18 00:55 98.4 77 18 122/63 (82) 10/12/18 21:11 Nasal Cannula 2.0 10/12/18 20:00 98.4 74 18 127/71 (89) 10/12/18 16:00 99.1 80 18 92/61 (71) 95 Intake and Output 10/12/18 10/13/18 19:00 07:00 Intake Total 1250 ml 300 ml Output Total 400 ml 650 ml Balance 850 ml -350 ml IV Total 1250 ml 300 ml Output Urine Total 400 ml 650 ml Height (Feet): 6 Height (Inches): 8.00 Weight (Pounds): 130 General Appearance: alert, confused, agitated Jass Olivares MD Oct 13, 2018 12:04
--- NOTE | 2018-10-13 13:00 | NUR ---
NURSE NOTES: Patient opens her eyes but non-verbal and does not follow commands. V/S stable. Breathing is unlabored @ this time. No congestion or wheezing. Will continue to monitor.
--- NOTE | 2018-10-13 14:10 | NUR ---
RD ASSESSMENT & RECOMMENDATIONS SEE CARE ACTIVITY FOR COMPLETE ASSESSMENT DAILY ESTIMATED NEEDS: Needs based on Weight loss, underweight, mild to moderate wasting 53.6kg 30-35 kcals/kg 2698-7357 total kcals 1-1.5 g protein/kg 54-80 g total protein 25-30 mL/kg 8872-1529 total fluid mLs NUTRITION DIAGNOSIS: 1) Inadequate oral intake r/t dysphagia, dementia, FTT as evidenced by pt adm w/ decreased oral intake, 14# wt loss (11% severe wt change) x4 weeks. 2) Swallowing difficulty r/t dysphagia as evidenced by pt is now made NPO. CURRENT DIET:NPO ENTERAL NUTRITION RECOMMENDATIONS: Jevity 1.2 @60ml/hr x24 hrs to provide 1440ml, 1728 kcal, 80g prot, 1162ml free H2O - If part of POC, rec to obtain GI access - Initiate Jevity 1.2 @ 10ml for 8 hrs - Advance SLOWLY 10ml/hr q 6 hrs to goal of 60ml/hr x24 hrs - Flush per MD. HOB over 30 degrees ADDITIONAL RECOMMENDATIONS: 1) TXR PT TO BED W/ FUNCTIONING SCALE -> WEEKLY WTS/ PT ADM W/ SEVERE WT LOSS 2) Monitor POC- TF vs Palliative care TF RECS ABOVE IF PART OF POC . .
--- NOTE | 2018-10-13 15:15 | Nephrology Progress Note ---
Assessment/Plan Problem List: (1) Dehydration Assessment: hyperNatremia (2) Failure to thrive in adult (3) Acute metabolic encephalopathy (4) UTI (urinary tract infection) (5) Parkinsons disease Assessment Renal failure likely dehydration Failure to Thrive and weight loss Poor Cognition HyperNatremia, Free water deficit UTI Parkinsons Plan no labs today -IV hydration D5W -monitor Renal Parameter -PMD Discussed with son possibility of PEG placement, he will review advanced directives and discuss with family -Aspiration precautions -Fall precautions Avoid mind altering meds Subjective ROS Limited/Unobtainable: Yes Constitutional: Reports: other - non verbal Objective Objective Last 24 Hour Vital Signs Date Time Temp Pulse Resp B/P (MAP) Pulse Ox O2 Delivery O2 Flow Rate FiO2 10/13/18 12:00 97.3 71 17 133/63 (86) 95 10/13/18 09:00 Nasal Cannula 2.0 10/13/18 08:00 97.2 75 12 120/77 (91) 95 10/13/18 04:00 97.6 76 18 119/69 (86) 10/13/18 00:55 98.4 77 18 122/63 (82) 10/12/18 21:11 Nasal Cannula 2.0 10/12/18 20:00 98.4 74 18 127/71 (89) 10/12/18 16:00 99.1 80 18 92/61 (71) 95 Intake and Output 10/12/18 10/13/18 19:00 07:00 Intake Total 1250 ml 300 ml Output Total 400 ml 650 ml Balance 850 ml -350 ml IV Total 1250 ml 300 ml Output Urine Total 400 ml 650 ml Height (Feet): 6 Height (Inches): 8.00 Weight (Pounds): 130 General Appearance: no apparent distress, lethargic Cardiovascular: normal rate Respiratory/Chest: decreased breath sounds Abdomen: soft Objective no change Arnaldo Maciel MD Oct 13, 2018 15:15
[2018-10-13 16:00] VITALS: BP 96/63
--- NOTE | 2018-10-13 18:00 | NUR ---
NURSE NOTES: Unable to administer medications due to patient is NPO.
--- NOTE | 2018-10-13 18:35 | NUR ---
CASE MANAGEMENT: REVIEW SI: UTI . ACUTE METABOLIC ENCEPHALOPATHY T 97.3 HR 71 RR 17 BP 96/63 SAT 97% NC/2L IS: D5W IVF @ 50ML/HR LEVAQUIN IV QD DEPAKOTE PO Q12HR MED/SURG STATUS DCP: PATIENT IS FROM [facility]
--- NOTE | 2018-10-13 19:30 | NUR ---
NURSE NOTES: Received patient in bed, non-verbal does not open her eyes to name or shaking but V/S stable. IV intact, patient is NPO, on oxygen @2L/min via NC. On P200 mattress and heels are floated bilaterally to off load pressure. HOB elevated on aspiration precautions, oral care performed. Will continue plan of care.
--- NOTE | 2018-10-13 19:35 | NUR ---
HAND-OFF: Report given to
[2018-10-13 20:00] VITALS: BP 116/68
--- NOTE | 2018-10-13 20:10 | NUR ---
NURSE NOTES: Patient in bed, awake, unable to make needs known. Respiration is even, nasal cannula. Iv site noted, iv fluid is infusing. Skin is warm and dry, noted with multiple dressing, intact, dry. No s/s of pain or discomfort noted. Call light is at bedside. Multiple checks will continue. Continue plan of care.
--- NOTE | 2018-10-13 20:42 | General Progress Note ---
Assessment/Plan Assessment/Plan #Weight loss #Poor oral intake #Failure to thrive #Severe dementia #Parkinsons Disease #Hypernatremia #SOWMYA #Dehydration -Cont inpatient care -IV hydration -monitor BMP -Nephrology consult appreciated -Continue Sinemet -Continue amantadine -Provide supportive care -Aspiration precautions -Fall precautions -Frequent orienting -Discussed with son regarding PEG, stated that pt did not want, would like to transition to comfort care, however wants to discuss with sister. -discussed with CM regarding hospice, will check pts insurance and give options #Gram negative UTI -continue Levaquin -follow up culture -Mood disorder -Bipolar depression -continue Lexapro and Depakote -appreciate psych consult VTE PPx heparin SC DNR Subjective Allergies: Coded Allergies: AMOXICILLIN (Verified Allergy, Unknown, 12/31/17) Subjective No acute overnight events, no complaints Objective Last 24 Hour Vital Signs Date Time Temp Pulse Resp B/P (MAP) Pulse Ox O2 Delivery O2 Flow Rate FiO2 10/13/18 16:00 98.0 94 17 96/63 (74) 97 10/13/18 12:00 97.3 71 17 133/63 (86) 95 10/13/18 09:00 Nasal Cannula 2.0 10/13/18 08:00 97.2 75 12 120/77 (91) 95 10/13/18 04:00 97.6 76 18 119/69 (86) 10/13/18 00:55 98.4 77 18 122/63 (82) 10/12/18 21:11 Nasal Cannula 2.0 Intake and Output 10/12/18 10/13/18 18:59 06:59 Intake Total 1150 ml 400 ml Output Total 400 ml 650 ml Balance 750 ml -250 ml IV Total 1150 ml 400 ml Output Urine Total 400 ml 650 ml Height (Feet): 6 Height (Inches): 8.00 Weight (Pounds): 130 Objective General: opens eyes to verbal stimuli, noncooperative, no distress, appears stated age Head: normocephalic, without obvious abnormality, atraumatic Eyes: conjunctivae/corneas clear. PERRL, EOM's intact Throat: lips, mucosa, and tongue normal. MMM Neck: supple, symmetrical, trachea midline, and no JVD Lungs: clear to auscultation bilaterally Heart: regular rate and rhythm, S1, S2 normal, no murmur, click, rub or gallop Abdomen: soft, non-tender, non-distended, bowel sounds normal; no masses or organomegaly Extremities: extremities normal, atraumatic, no cyanosis or edema Pulses: 2+ and symmetric Skin: skin color, texture, turgor normal; no rashes or lesions Neurologic: grossly normal, no focal deficits Dara Fernández MD Oct 13, 2018 20:42
[2018-10-13] MEDS: Levodopa/Carbidopa CR 50/200 tab ORAL SCH (21:00)
[2018-10-14] VITALS: BP 117/66
[2018-10-14 03:48] VITALS: BP 100/64
[2018-10-14] MEDS: Levodopa/Carbidopa 25/100 tab ORAL SCH ×5 (05:00→17:55)
--- NOTE | 2018-10-14 07:30 | NUR ---
Hand off: Report given to MICHELLE Watts.
[2018-10-14 07:47] LABS: BASOPHILS % (AUTO) 0.8 % (0.0-2.0); EOSINOPHILS % (AUTO) 1.7 % (0.0-3.0); HEMATOCRIT 35.2 % (37.0-47.0); HEMOGLOBIN 11.8 G/DL (12.0-16.0); LYMPHOCYTES % (AUTO) 13.3 % (20.0-45.0); MEAN CORPUSCULAR VOLUME 95 FL (80-99); MONOCYTES % (AUTO) 13.1 % (1.0-10.0); NEUTROPHILS % (AUTO) 71.2 % (45.0-75.0); PLATELET COUNT 288 K/UL (150-450); RED CELL DISTRIBUTION WIDTH 12.1 % (11.6-14.8); WHITE BLOOD COUNT 7.5 K/UL (4.8-10.8)
[2018-10-14 08:00] VITALS: BP 108/73
[2018-10-14 08:19] LABS: ALANINE AMINOTRANSFERASE 33 U/L (12-78); ALBUMIN 2.5 G/DL (3.4-5.0); ALBUMIN/GLOBULIN RATIO 0.7 (1.0-2.7); ALKALINE PHOSPHATASE 73 U/L (46-116); ANION GAP 8 mmol/L (5-15); ASPARTATE AMINO TRANSFERASE 24 U/L (15-37); BILIRUBIN,TOTAL 0.5 MG/DL (0.2-1.0); BLOOD UREA NITROGEN 16 mg/dL (7-18); CALCIUM 8.7 MG/DL (8.5-10.1); CARBON DIOXIDE 26 MMOL/L (21-32); CHLORIDE 102 MMOL/L (98-107); PHOSPHORUS 3.2 MG/DL (2.5-4.9); POTASSIUM 3.5 MMOL/L (3.5-5.1); SODIUM 136 MMOL/L (136-145)
--- NOTE | 2018-10-14 08:30 | NUR ---
NURSE NOTES: Patient is non-verbal. No s/s of distress. Side rails are up X2. Bed is locked and in lowest position. HOB is elevated. Will continue to monitor.
[2018-10-14] MEDS: Docusate 100mg cap ORAL SCH (09:00)
[2018-10-14] MEDS: Amantadine 100mg cap ORAL SCH (09:00)
[2018-10-14] MEDS: Heparin 5000 units/ml inj SUBQ SCH (09:40)
[2018-10-14 12:00] VITALS: BP 115/68
--- NOTE | 2018-10-14 12:05 | General Progress Note ---
Assessment/Plan Problem List: (1) Acute metabolic encephalopathy ICD Codes: G93.41 - Metabolic encephalopathy SNOMED: 66269357, 982718530 (2) Dementia with behavioral disturbance ICD Codes: F03.91 - Unspecified dementia with behavioral disturbance SNOMED: 9651426711588 Status: stable Assessment/Plan Haldol Im as its not sedative valproic acid level low the pt lacks capacity to make decisions dw pts son rec palliative care. Subjective Neurologic/Psychiatric: Reports: anxiety, depressed, emotional problems Allergies: Coded Allergies: AMOXICILLIN (Verified Allergy, Unknown, 12/31/17) Subjective the pt is the same and is agitated at times the pt is not eating and the family refused GT the pt lacks capacity however per son the pt expressed to him that he would not want GT when she was not confused Objective Last 24 Hour Vital Signs Date Time Temp Pulse Resp B/P (MAP) Pulse Ox O2 Delivery O2 Flow Rate FiO2 10/14/18 09:00 Nasal Cannula 2.0 10/14/18 08:00 97.9 79 17 108/73 (85) 95 10/14/18 03:48 97.7 92 20 100/64 (76) 97 10/14/18 00:00 97.7 86 16 117/66 (83) 98 10/13/18 21:00 Nasal Cannula 2.0 10/13/18 20:00 97.4 89 20 116/68 (84) 100 10/13/18 16:00 98.0 94 17 96/63 (74) 97 Intake and Output 10/13/18 10/14/18 19:00 07:00 Intake Total 600 ml 450 ml Output Total 600 ml Balance 0 ml 450 ml IV Total 600 ml 450 ml Output Urine Total 600 ml # Voids 1 # Bowel Movements 2 1 Laboratory Tests 10/14/18 07:10: White Blood Count 7.5, Red Blood Count 3.70L, Hemoglobin 11.8L, Hematocrit 35.2L , Mean Corpuscular Volume 95, Mean Corpuscular Hemoglobin 31.8H, Mean Corpuscular Hemoglobin Concent 33.4, Red Cell Distribution Width 12.1, Platelet Count 288, Mean Platelet Volume 6.2L, Neutrophils (%) (Auto) 71.2, Lymphocytes ( %) (Auto) 13.3L, Monocytes (%) (Auto) 13.1H, Eosinophils (%) (Auto) 1.7, Basophils (%) (Auto) 0.8, Sodium Level 136, Potassium Level 3.5, Chloride Level 102, Carbon Dioxide Level 26, Anion Gap 8, Blood Urea Nitrogen 16, Creatinine 1.0, Estimat Glomerular Filtration Rate , Glucose Level 112H, Calcium Level 8.7 , Phosphorus Level 3.2, Magnesium Level 2.2, Total Bilirubin 0.5, Aspartate Amino Transf (AST/SGOT) 24, Alanine Aminotransferase (ALT/SGPT) 33, Alkaline Phosphatase 73, Total Protein 6.0L, Albumin 2.5L, Globulin 3.5, Albumin/ Globulin Ratio 0.7L Height (Feet): 6 Height (Inches): 8.00 Weight (Pounds): 130 General Appearance: no apparent distress, alert, confused, agitated Jass Olivares MD Oct 14, 2018 12:05
--- NOTE | 2018-10-14 14:03 | NUR ---
Social Service Note YENY spoke with Gladis at [facility] [phone] regarding hospices services at facility. Per Gladis she has spoken with patient's son and the they have decided to have patient return to her familiar surroundings to see if this will encourage patient to increase her PO intake. This will be evaluated for 1-2 weeks and which time if attempts appear futile then family will address hospice. Patient's information faxed to Gladis at [phone]. YENY left son Zachariah [phone] a message regarding impending dc planning. YENY discussed with CM. Will monitor and follow up.
--- NOTE | 2018-10-14 14:58 | Discharge Instructions ---
Discharge Instructions Discharge Instructions Follow up with: pcp Services at Discharge: physical therapy Diet: full liquid Activity: as tolerated For Congestive Heart Failure Reminder Report to your physician any weight gain of 5 pounds or more in one week. Dara Fernández MD Oct 14, 2018 14:58
--- NOTE | 2018-10-14 15:55 | NUR ---
*-* DISCHARGE PLANNED *-* PATIENT IS DISCHARGED TO: [facility] RO[facility]-B SKILLED T:[phone] FOR NURSE TO NURSE REPORT [facility] HAS BEEN ARRANGED FOR CONSULTING PRACTICE DIRECTOR AT [address] [id number]
[2018-10-14 16:00] VITALS: BP 106/60
--- NOTE | 2018-10-14 16:11 | Nephrology Progress Note ---
Assessment/Plan Problem List: (1) Dehydration Assessment: hyperNatremia (2) Failure to thrive in adult (3) Acute metabolic encephalopathy (4) UTI (urinary tract infection) (5) Parkinsons disease Assessment Renal failure likely dehydration Failure to Thrive and weight loss Poor Cognition HyperNatremia, Free water deficit UTI Parkinsons Plan -IV hydration D5W -monitor Renal Parameter -PMD Discussed with son possibility of PEG placement, he will review advanced directives and discuss with family -Aspiration precautions -Fall precautions Avoid mind altering meds ? DC planning? Subjective ROS Limited/Unobtainable: No Constitutional: Reports: malaise, weakness Objective Objective Last 24 Hour Vital Signs Date Time Temp Pulse Resp B/P (MAP) Pulse Ox O2 Delivery O2 Flow Rate FiO2 10/14/18 12:00 98.0 100 21 115/68 (84) 97 10/14/18 09:00 Nasal Cannula 2.0 10/14/18 08:00 97.9 79 17 108/73 (85) 95 10/14/18 03:48 97.7 92 20 100/64 (76) 97 10/14/18 00:00 97.7 86 16 117/66 (83) 98 10/13/18 21:00 Nasal Cannula 2.0 10/13/18 20:00 97.4 89 20 116/68 (84) 100 Intake and Output 10/13/18 10/14/18 19:00 07:00 Intake Total 600 ml 450 ml Output Total 600 ml Balance 0 ml 450 ml IV Total 600 ml 450 ml Output Urine Total 600 ml # Voids 1 # Bowel Movements 2 1 Laboratory Tests 10/14/18 07:10: White Blood Count 7.5, Red Blood Count 3.70L, Hemoglobin 11.8L, Hematocrit 35.2L , Mean Corpuscular Volume 95, Mean Corpuscular Hemoglobin 31.8H, Mean Corpuscular Hemoglobin Concent 33.4, Red Cell Distribution Width 12.1, Platelet Count 288, Mean Platelet Volume 6.2L, Neutrophils (%) (Auto) 71.2, Lymphocytes ( %) (Auto) 13.3L, Monocytes (%) (Auto) 13.1H, Eosinophils (%) (Auto) 1.7, Basophils (%) (Auto) 0.8, Sodium Level 136, Potassium Level 3.5, Chloride Level 102, Carbon Dioxide Level 26, Anion Gap 8, Blood Urea Nitrogen 16, Creatinine 1.0, Estimat Glomerular Filtration Rate , Glucose Level 112H, Calcium Level 8.7 , Phosphorus Level 3.2, Magnesium Level 2.2, Total Bilirubin 0.5, Aspartate Amino Transf (AST/SGOT) 24, Alanine Aminotransferase (ALT/SGPT) 33, Alkaline Phosphatase 73, Total Protein 6.0L, Albumin 2.5L, Globulin 3.5, Albumin/ Globulin Ratio 0.7L Height (Feet): 6 Height (Inches): 8.00 Weight (Pounds): 130 General Appearance: no apparent distress, lethargic Cardiovascular: tachycardia Respiratory/Chest: decreased breath sounds Abdomen: soft Objective no change Arnaldo Maciel MD Oct 14, 2018 16:11
--- NOTE | 2018-10-14 18:47 | NUR ---
NURSE NOTES: Patient to be discharged today to [facility]. Report given to Mary at facility.
[2018-10-14 19:40] VITALS: BP 140/68
--- NOTE | 2018-10-14 19:40 | NUR ---
NURSE NOTES: Pt picked up by [facility], discharged to [facility] in stable condition. IV removed, belongings given to ambulance personnel.
--- NOTE | 2018-10-15 13:38 | Discharge Summary ---
Discharge Summary Discharge Summary _ DATE OF ADMISSION: 10/07/2018 DATE OF DISCHARGE: 10/14/2018 DISCHARGED BY: Dr. Dara Fernández CONSULTANTS: Dr. Arnaldo Olivares BRIEF HOSPITAL COURSE: Patient is an 83-year-old female, who was [facility]. She was reported to have weakness and poor appetite for the past few days. Patient was nonverbal at baseline. She has history of dementia and Parkinson's disease. There were no signs of distress upon arrival. There was no reported fever or chills. No nausea or vomiting. No shortness of breath. CODE STATUS DNR. On evaluation at ED, vital signs were stable. Blood work did not show any leukocytosis. Sodium was 149. Creatinine 1.6. Urinalysis showed 3+ leukocyte esterase, too many to count WBC, positive nitrite. Chest x-ray did not show any acute process. She was found to have acute kidney injury and hyponatremia. Urinalysis with pyuria. It was then admitted for further evaluation. She was given IV hydration. Patient had weight loss with poor oral intake/ failure to thrive. Discussed possibility of PEG tube placement with son. Given supportive care. She was started on Levaquin. He was given heparin for DVT prophylaxis. She was placed on strict aspiration precautions. Urine culture showed growth of pansensitive E. coli. Speech evaluation was done. Patient was recommended liquefied pured diet with nectar thick liquids. Per son's decision, they did not want any PEG, and would like to transition to comfort care. psychiatric social worker spoke with family. Family decided to have patient return to her familiar surroundings for trial to increase p.o. intake. And at that time in 1-2 weeks, family will re-evaluate and if futile will then address hospice. [facility] to [facility]. FINAL DIAGNOSES: Weight loss Poor oral intake Failure to thrive Severe dementia Parkinsons Disease Hypernatremia SOWMYA Dehydration E. coli UTI Mood disorder Bipolar depression DISPOSITION: Patient was discharged to a SNF. DISCHARGE MEDICATIONS: Refer to Discharge Medication List. I have been assigned to complete a discharge summary on this account, I was not involved with the patient's management. Elda Saba NP Oct 15, 2018 13:38
== END 2018-10-14 19:40 | DRG 682 ==
LOC: EDBD 13:58 → EDUNIT# 13:58 → EMR 15:40 → 4E 15:51 → EDBEDREQ 16:51 → 4E 10-08 00:31
DX: N17.9 Acute kidney failure, unspecified (principal); G93.41 Metabolic encephalopathy; E87.0 Hyperosmolality and hypernatremia; N39.0 Urinary tract infection, site not specified; F02.81 Dementia in other diseases classified elsewhere, unspecified severity, with behavioral disturbance; Z68.1 Body mass index [BMI] 19.9 or less, adult; E86.0 Dehydration; F31.9 Bipolar disorder, unspecified; Z66 Do not resuscitate; G20 Parkinson's disease; F02.80 Dementia in other diseases classified elsewhere, unspecified severity, without behavioral disturbance, psychotic disturbance, mood disturbance, and anxiety; R63.4 Abnormal weight loss; B96.20 Unspecified Escherichia coli [E. coli] as the cause of diseases classified elsewhere; Z88.1 Allergy status to other antibiotic agents; K21.9 Gastro-esophageal reflux disease without esophagitis; R62.7 Adult failure to thrive
CPT/HCPCS: 36415; 71045; 80053; 80061; 80164; 81003; 82607; 82728; 82746; 82977; 83036; 83540; 83550; 83605; 83735; 83880; 84100; 84443; 84484; 84550; 85025; 86140; 87040; 87081; 87086; 87181; 93005; 96361; 96365; 99285